=== PATIENT | female | born 1950 | race Caucasian/White ===

== ENCOUNTER 2017-10-14 05:53 | Observation (INO) | payer OTHER ==
[2017-10-14] MEDS ORDERED: SODIUM CHLORIDE 1,000 ML IV STA (06:05)
[2017-10-14] MEDS ORDERED: dilTIAZem HCL 50 MG/10 ML - 10 ML VIAL IVPUSH ONE (06:05)
[2017-10-14] MEDS ORDERED: dilTIAZem HCL 125 MG/25 ML - 25 ML VIAL ONE (06:13)
[2017-10-14 06:33] LABS: BASO % 0.6 % (0-2.0); EOS % 0.6 % (0-4.5); HEMATOCRIT 39.3 % (32.4-45.2); HEMOGLOBIN 13.1 GM/dL (10.7-15.3); LYMPH % 19.2 % (8-40); MCH 28.2 pg (25.7-33.7); MCHC 33.2 g/dl (32.0-36.0); MEAN CELL VOLUME 84.9 fl (80-96); MEAN PLT VOLUME 9.6 fl (7.5-11.1); NEUT % 72.6 % (42.8-82.8); PLATELET COUNT 170 K/MM3 (134-434); RBC 4.63 M/mm3 (3.60-5.2); RDW 14.5 % (11.6-15.6); WHITE BLOOD COUNT 5.3 K/mm3 (4.0-10.0)
[2017-10-14] MEDS ORDERED: dilTIAZem HCL 60 MG TABLET (FP) PO ONE (06:39)
--- NOTE | 2017-10-14 06:39 | PDOC ---
History of Present Illness - History of Present Illness Initial Comments: 10/14/17 06:39 The patient is a 67 year old female with a significant PMH of HTN and CVA (X2, last in 2012) who presents to the emergency department via EMS with chest pain that began at approximately 11:30 PM last night. The patient describes the chest pain as 8/10 with associated palpitations and diffuse abdominal pain. The patient recorded her blood pressure at home to be approx. 150/88 and took her lisinopril. The patient's blood pressure remained elevated on EMS and received 324 mg aspirin and normal saline en route to the ED. The patient notes the chest pain is now a 7/10. The patient denies sick contact or recent travel The patient denies diaphoresis, blurry vision, shortness of breath, headache lightheadedness, and dizziness. Denies fever, chills, nausea, vomit, diarrhea and constipation. Denies dysuria, frequency, urgency and hematuria. Allergies: NKA Past surgical history: Ovarian cyst removal Social history: No reported alcohol, drug, or cigarette use. PCP: Dr. Anderson Housing Assistant: Dr. Hull <Harleen Lucero - Last Filed: 10/14/17 06:39> - General History Source: Patient, Family Exam Limitations: No Limitations <Ana Glover - Last Filed: 10/17/17 10:48> - General Chief Complaint: Chest Pain Stated Complaint: BP PROBLEM,PAIN Time Seen by Provider: 10/14/17 06:07 Past History <Harleen Lucero - Last Filed: 10/14/17 06:39> - Past Medical History CVA: Yes (X2 2012) HTN: Yes - Suicide/Smoking/Psychosocial Hx Smoking History: Never smoked Have you smoked in the past 12 months: No Information on smoking cessation initiated: No Hx Alcohol Use: No Drug/Substance Use Hx: No Substance Use Type: None <Ana Glover - Last Filed: 10/17/17 10:48> - Past Medical History Allergies/Adverse Reactions: Allergies Allergy/AdvReac Type Severity Reaction Status Date / Time No Known Allergies Allergy Verified 06/30/15 11:21 Home Medications: Ambulatory Orders Aspirin [ASA -] 81 mg PO DAILY 03/05/14 Apixaban [Eliquis -] 5 mg PO BID #60 tablet 10/15/17 Diltiazem Cd [Cardizem Cd -] 120 mg PO DAILY #30 cap.cd.24h 10/15/17 Review of Systems - Review of Systems Able to Perform ROS?: Yes Comments:: 10/14/17 06:41 ROS: A complete review of 10 out of 10 review of systems is taken and is negative apart from what is previously mentioned below and in the HPI. <Harleen Lucero - Last Filed: 10/14/17 06:39> *Physical Exam - Vital Signs Last Vital Signs Temp Pulse Resp BP Pulse Ox 97.9 F 99 H 14 115/56 100 10/14/17 06:03 10/14/17 06:29 10/14/17 06:29 10/14/17 06:29 10/14/17 06:29 - Physical Exam Comments: 10/14/17 06:41 GENERAL: The patient is in no acute distress. HEAD: Normal with no signs of trauma. EYES: PERRLA, EOMI, sclera anicteric, conjunctiva clear. ENT: Ears normal, nares patent, oropharynx clear without exudates. Moist mucous membranes. NECK: Normal range of motion, supple without lymphadenopathy, JVD, or masses. LUNGS: Breath sounds equal, clear to auscultation bilaterally. No wheezes, and no crackles. HEART: (+) Irregular rate and rhythm. Normal S1 and S2 without murmur, rub or gallop. ABDOMEN: Soft, nontender, normoactive bowel sounds. No guarding, no rebound. No masses palpable. EXTREMITIES: Normal range of motion, no edema. No clubbing or cyanosis. No erythema, or tenderness. NEUROLOGICAL: Cranial nerves II through XII grossly intact. Normal speech. No focal neurological deficits. MUSCULOSKELETAL: Back non-tender to palpation, no CVA tenderness SKIN: Warm, Dry, normal turgor, no rashes or lesions noted. <Harleen Lucero - Last Filed: 10/14/17 06:39> - Vital Signs Last Vital Signs Temp Pulse Resp BP Pulse Ox 97.9 F 99 H 14 115/56 100 10/14/17 06:03 10/14/17 06:29 10/14/17 06:29 10/14/17 06:29 10/14/17 06:29 <Adalberto,Ana - Last Filed: 10/17/17 10:48> ED Treatment Course - LABORATORY CBC & Chemistry Diagram: 10/14/17 06:30 10/14/17 06:30 - Medications Given in the ED: ED Medications Discontinued Medications Generic Name Dose Route Start Last Admin Trade Name Freq PRN Reason Stop Dose Admin Diltiazem HCl 10 mg 10/14/17 06:05 10/14/17 06:28 Cardizem Injection - IVPUSH 10/14/17 06:06 10 mg ONCE ONE Administration <Harleen Lucero - Last Filed: 10/14/17 06:39> - LABORATORY CBC & Chemistry Diagram: 10/15/17 06:40 10/15/17 06:40 - RADIOLOGY Radiology Studies Ordered: Category Date Time Status CHEST X-RAY PORTABLE* [RAD] Stat Radiology 10/14/17 06:05 Taken - Medications Given in the ED: ED Medications Discontinued Medications Generic Name Dose Route Start Last Admin Trade Name Freq PRN Reason Stop Dose Admin Diltiazem HCl 10 mg 10/14/17 06:05 10/14/17 06:28 Cardizem Injection - IVPUSH 10/14/17 06:06 10 mg ONCE ONE Administration <Ana Glover - Last Filed: 10/17/17 10:48> Medical Decision Making - Critical Care Time Total Critical Care Time (minutes): 35 Critical Care Statement: The care of this patient involved high complexity decision making to prevent further life threatening deterioration of the patient 's condition and/or to evaluate & treat vital organ system(s) failure or risk of failure. - Medical Decision Making Ms Escobar is a 67 yo F who presents to the ER with new onset Afib and chest heaviness Some confusion initially, pt stated that she had multiple MIs (no stents) Pt then said she has had a CVA in the past Pt presents to the ER due to chest heaviness that began at 11pm last night (+) sob No prior episodes quite like this No recent travel No ill contacts On examination: Afib with RVR Will do: Labs EKG copyman Cardize 10/17/17 10:47 Guiaic sent in anticipation of anticoagulation HR improved with Cardizem Will defer to Cardiology for type of anticoagulation to initiate Pt signed out to Dr Casas pending labs and conversation with cardiology Anticipate admission Clinical Impression: chest heaviness, initial presentation Afib with rvr, initial presentation <Ana Glover - Last Filed: 10/17/17 10:48> *DC/Admit/Observation/Transfer - Attestations Scribe Attestion: 10/14/17 06:53 Documentation prepared by Harleen Lucero, acting as medical grade shoemaker for Ana Glover MD. <Harlene Lucero - Last Filed: 10/14/17 06:39> <Ana Glover - Last Filed: 10/17/17 10:48> Diagnosis at time of Disposition: Chest pain, Atrial fibrillation - Discharge Dispostion Disposition: HOME Condition at time of disposition: Stable
[2017-10-14] MEDS ORDERED: dilTIAZem HCL 60 MG TABLET (FP) ONE (06:44)
[2017-10-14 07:16] LABS: ALBUMIN 3.2 g/dl (3.4-5.0); ANION GAP 7 (8-16); BLOOD UREA NITROGEN 16 mg/dL (7-18); CALCIUM 8.6 mg/dL (8.5-10.1); CHLORIDE 107 mmol/L (98-107); CO2 25 mmol/L (21-32); CREATININE 0.6 mg/dL (0.55-1.02); GLUCOSE,RANDOM 113 mg/dL (74-106); SGOT/AST 23 U/L (15-37); SGPT/ALT 27 U/L (12-78); SODIUM 139 mmol/L (136-145); TOT PROT 6.8 g/dl (6.4-8.2)
[2017-10-14 07:25] LABS: ALK PHOS 69 U/L (45-117); N-TERMINAL BNP 251.04 pg/ml (5-125)
[2017-10-14 07:38] LABS: BILIRUBIN,TOTAL < 0.1 mg/dL (0.2-1.0)
[2017-10-14 10:02] LABS: URINE APPEARANCE CLEAR; URINE BILIRUBIN NEGATIVE (<2.0 mg/dL); URINE BLOOD 1+ (NEGATIVE); URINE COLOR COLORLESS; URINE GLUCOSE (UA) NEGATIVE (NEGATIVE); URINE KETONE NEGATIVE (NEGATIVE); URINE LEUK ESTERASE NEGATIVE (NEGATIVE); URINE NITRITE NEGATIVE (NEGATIVE); URINE PROTEIN NEGATIVE (NEGATIVE); URINE UROBILINOGEN NEGATIVE mg/dL (0.2-1.0)
--- NOTE | 2017-10-14 10:11 | PDOC ---
*Physical Exam - Vital Signs Last Vital Signs Temp Pulse Resp BP Pulse Ox 98.1 F 98 H 18 125/81 98 10/14/17 07:59 10/14/17 07:59 10/14/17 07:59 10/14/17 07:59 10/14/17 07:59 <Deyanira Sanchez - Last Filed: 10/14/17 10:37> - Vital Signs Last Vital Signs Temp Pulse Resp BP Pulse Ox 98.1 F 98 H 18 125/81 98 10/14/17 07:59 10/14/17 07:59 10/14/17 07:59 10/14/17 07:59 10/14/17 07:59 <Kiko Casas - Last Filed: 10/14/17 10:44> ED Treatment Course - LABORATORY CBC & Chemistry Diagram: 10/14/17 06:30 10/14/17 06:30 - ADDITIONAL ORDERS Additional order review: Laboratory Results 10/14/17 10/14/17 10/14/17 09:28 06:49 06:30 Sodium 139 Potassium 4.0 Chloride 107 Carbon Dioxide 25 Anion Gap 7 L BUN 16 Creatinine 0.6 Creat Clearance w eGFR > 60 Random Glucose 113 H Calcium 8.6 Total Bilirubin < 0.1 L D AST 23 ALT 27 Alkaline Phosphatase 69 Creatine Kinase 131 Troponin I < 0.02 B-Natriuretic Peptide 251.04 H Total Protein 6.8 Albumin 3.2 L TSH 3.24 Urine Color Colorless Urine Appearance Clear Urine pH 6.0 Ur Specific [place] 1.004 Urine Protein Negative Urine Glucose (UA) Negative Urine Ketones Negative Urine Blood 1+ H Urine Nitrite Negative Urine Bilirubin Negative Urine Urobilinogen Negative Ur Leukocyte Esterase Negative Stool Occult Blood Negative 10/14/17 06:30 RBC 4.63 MCV 84.9 MCHC 33.2 RDW 14.5 MPV 9.6 Neutrophils % 72.6 Lymphocytes % 19.2 Monocytes % 7.0 Eosinophils % 0.6 Basophils % 0.6 - Medications Given in the ED: ED Medications Discontinued Medications Generic Name Dose Route Start Last Admin Trade Name Freq PRN Reason Stop Dose Admin Diltiazem HCl 10 mg 10/14/17 06:05 10/14/17 06:28 Cardizem Injection - IVPUSH 10/14/17 06:06 10 mg ONCE ONE Administration Diltiazem HCl 60 mg 10/14/17 06:39 10/14/17 06:49 Cardizem - PO 10/14/17 06:40 60 mg ONCE ONE Administration <Deyanira Sanchez - Last Filed: 10/14/17 10:37> - LABORATORY CBC & Chemistry Diagram: 10/14/17 06:30 10/14/17 06:30 - ADDITIONAL ORDERS Additional order review: Laboratory Results 10/14/17 10/14/17 06:49 06:30 Sodium 139 Potassium 4.0 Chloride 107 Carbon Dioxide 25 Anion Gap 7 L BUN 16 Creatinine 0.6 Creat Clearance w eGFR > 60 Random Glucose 113 H Calcium 8.6 Total Bilirubin < 0.1 L D AST 23 ALT 27 Alkaline Phosphatase 69 Creatine Kinase 131 Troponin I < 0.02 B-Natriuretic Peptide 251.04 H Total Protein 6.8 Albumin 3.2 L TSH 3.24 Stool Occult Blood Negative 10/14/17 06:30 RBC 4.63 MCV 84.9 MCHC 33.2 RDW 14.5 MPV 9.6 Neutrophils % 72.6 Lymphocytes % 19.2 Monocytes % 7.0 Eosinophils % 0.6 Basophils % 0.6 - Medications Given in the ED: ED Medications Discontinued Medications Generic Name Dose Route Start Last Admin Trade Name Freq PRN Reason Stop Dose Admin Diltiazem HCl 10 mg 10/14/17 06:05 10/14/17 06:28 Cardizem Injection - IVPUSH 10/14/17 06:06 10 mg ONCE ONE Administration Diltiazem HCl 60 mg 10/14/17 06:39 10/14/17 06:49 Cardizem - PO 10/14/17 06:40 60 mg ONCE ONE Administration <Kiko Casas - Last Filed: 10/14/17 10:44> Medical Decision Making - Medical Decision Making 10/14/17 10:31 Documentation prepared by Deyanira Sanchez, acting as regional medical director for Kiko Casas MD. Phone call placed to Dr. Hull at 09:35. Call returned back by Dr. Plata 09: 39 and case was discussed. 10/14/17 10:37 Microblog sent to [facility] and call was returned promptly. Case was discussed. <Deyanira Sanchez - Last Filed: 10/14/17 10:37> - Medical Decision Making 10/14/17 10:09 Care received at 0700 Patient presents to the emergency Department with chest pain/palps, found to be in new onset atrial fibrillation. Labs within normal limits, with negative troponin. Patient remains rate controlled. Case discussed with Dr. Carlton who will evaluate the patient. Patient accepted for admission to the hospitalist, case discussed with Dr. Bose. Case discussed in detail with admitting physician including history, physical exam and ancillary studies. Admitting physician has assumed care for the patient, will follow all pending diagnostics and will complete the evaluation and treatment. <Kiko Casas - Last Filed: 10/14/17 10:44> *DC/Admit/Observation/Transfer <Deyanira Sanchez - Last Filed: 10/14/17 10:37> - Discharge Dispostion Admit: Yes - Attestations Physician Attestion: 10/14/17 10:44 I, Dr. Kiko Casas MD, attest that this document has been prepared under my direction and personally reviewed by me in its entirety. I further attest, that it accurately reflects all work, treatment, procedures and medical decision -making performed by me. <Kiko Casas - Last Filed: 10/14/17 10:44> Diagnosis at time of Disposition: Chest pain, Atrial fibrillation - Discharge Dispostion Condition at time of disposition: Stable - Referrals Referrals: Chelsie Tenorio MD [Primary Care Provider] - - Patient Instructions - Post Discharge Activity
[2017-10-14] MEDS ORDERED: ENOXAPARIN NA (PORCINE) 80 MG/0.8 ML DISP.SYRIN SQ SCH (11:15)
[2017-10-14] MEDS ORDERED: ENOXAPARIN NA (PORCINE) 80 MG/0.8 ML DISP.SYRIN SQ ONE (11:24)
--- NOTE | 2017-10-14 11:26 | PN ---
Teaching Attending Note Name of Resident: Jerardo Bose ATTENDING PHYSICIAN STATEMENT I saw and evaluated the patient. I reviewed the resident's note and discussed the case with the resident. I agree with the resident's findings and plan as documented. SUBJECTIVE: This is a 67 year old woman with a history of HTN, CVA who comes to the ED complaining of chest pain since 11:30 pm yesterday. Pain was in the left chest and did not radiate. She denies SOB, nausea, dizziness. She had palpitations and her symptoms worsened with exertion. She also noted her BP was high. She took aspirin but her symptoms persisted. OBJECTIVE: Vital Signs Period Temp Pulse Resp BP Sys/Valdes Pulse Ox Last 24 Hr 97.9 F-98.1 F 98-133 14-18 115-149/56-88 98-100 HEART: Irregularly irregular LUNGS: Clear ABDOMEN: Soft, non-tender, non-distended, normal BS EXTREMITIES: No edema Laboratory Tests 10/14/17 10/14/17 10/14/17 06:30 06:30 06:49 WBC 5.3 RBC 4.63 Hgb 13.1 Hct 39.3 MCV 84.9 MCH 28.2 MCHC 33.2 RDW 14.5 Plt Count 170 MPV 9.6 Neutrophils % 72.6 Lymphocytes % 19.2 Monocytes % 7.0 Eosinophils % 0.6 Basophils % 0.6 Sodium 139 Potassium 4.0 Chloride 107 Carbon Dioxide 25 Anion Gap 7 L BUN 16 Creatinine 0.6 Creat Clearance w eGFR > 60 Random Glucose 113 H Calcium 8.6 Total Bilirubin < 0.1 L D AST 23 ALT 27 Alkaline Phosphatase 69 Creatine Kinase 131 Troponin I < 0.02 B-Natriuretic Peptide 251.04 H Total Protein 6.8 Albumin 3.2 L TSH 3.24 Urine Color Urine Appearance Urine pH Ur Specific [place] Urine Protein Urine Glucose (UA) Urine Ketones Urine Blood Urine Nitrite Urine Bilirubin Urine Urobilinogen Ur Leukocyte Esterase Stool Occult Blood Negative 10/14/17 09:28 WBC RBC Hgb Hct MCV MCH MCHC RDW Plt Count MPV Neutrophils % Lymphocytes % Monocytes % Eosinophils % Basophils % Sodium Potassium Chloride Carbon Dioxide Anion Gap BUN Creatinine Creat Clearance w eGFR Random Glucose Calcium Total Bilirubin AST ALT Alkaline Phosphatase Creatine Kinase Troponin I B-Natriuretic Peptide Total Protein Albumin TSH Urine Color Colorless Urine Appearance Clear Urine pH 6.0 Ur Specific [place] 1.004 Urine Protein Negative Urine Glucose (UA) Negative Urine Ketones Negative Urine Blood 1+ H Urine Nitrite Negative Urine Bilirubin Negative Urine Urobilinogen Negative Ur Leukocyte Esterase Negative Stool Occult Blood Home Medications Medication Instructions Recorded Aspirin [ASA -] 81 mg PO DAILY 03/05/14 Lisinopril/Hydrochlorothiazide 1 each PO DAILY 06/30/15 [Lisinopril-Hctz 20-25 mg Tab] Nifedipine ER [Procardia Xl -] 30 mg PO DAILY 06/30/15 ASSESSMENT AND PLAN: This is a 67 year old woman with a history of HTN, CVA who presented to the ED with of chest pain and palpitations since last night. 1. Atrial fibrillation, new-onset, with RVR - Rate improved with Cardizem 10 mg IV and Cardizem 60 mg PO in ED - Continue PO Cardizem - Discontinue Nifedipine - Start Lovenox - Observe on telemetry - Serial troponins - Echocardiogram - Cardiology consult 2. Chest pain and palpitations likely secondary to rapid a fib 3. HTN - Continue Lisinopril, HCTZ - Nifedipine being changed to Cardizem for rate control 4. History of CVA - Continue aspirin
--- NOTE | 2017-10-14 11:30 | HP ---
CHIEF COMPLAINT: chest pain and palpitations PCP: Dr. Anderson; Cardio - Dr. Hull HISTORY OF PRESENT ILLNESS: 67 y/o Nepali speaking F w/PMH of HTN and CVA (x2) presents to the ER with chest pain that started suddenly last night at approximately 11:30 PM. Pain began in abdomen and then moved to chest at that time. She took an aspirin and drank lots of water but only gave her mild relief. Chest pain was located in L sternal border and did not radiate to arms or jaw and was not associated with nausea, light-headedness, SOB. Pain was worse with exertion. Pain and palpitations remained throughout the night and pt decided to come to the ER when she noted that her BP which is normally controlled was elevated at home along with these symptoms. At this time pt reports improvement in chest pain and is there "only a little" and also reports improvement in abd pain. No longer feeling palpitations. She had these symptoms once in the past approximately 1.5 months ago and saw line crewman and no abnormalities found (pt also reports having echo done at that time). Denies cough, SOB, sick contacts, recent travel, lower extremity swelling, light -headedness, dizziness, dysuria, hematuria, nausea, vomiting, fever, chills. ER course was notable for: (1) NS, diltiazem IV 10 mg, diltiazem PO 60 mg (2) (3) Recent Travel: denies PAST MEDICAL HISTORY: HTN, CVA x2 PAST SURGICAL HISTORY: ovarian cyst removal, orthopedic surgeries in arms and legs as per pt Social History: Smoking: denies Alcohol: denies Drugs: denies Family History: Mother: HTN Allergies No Known Allergies Allergy (Verified 06/30/15 11:21) HOME MEDICATIONS: Home Medications Medication Instructions Recorded Aspirin [ASA -] 81 mg PO DAILY 03/05/14 Lisinopril/Hydrochlorothiazide 1 each PO DAILY 06/30/15 [Lisinopril-Hctz 20-25 mg Tab] Nifedipine ER [Procardia Xl -] 30 mg PO DAILY 06/30/15 REVIEW OF SYSTEMS CONSTITUTIONAL: Absent: fever, chills HEENT: Absent: visual changes CARDIOVASCULAR: +chest pain, palpitations Absent: lightheadedness, peripheral edema RESPIRATORY: Absent: cough, shortness of breath GASTROINTESTINAL:+abd pain Absent: abdominal distension, nausea, vomiting, diarrhea, constipation, melena, hematochezia GENITOURINARY: Absent: dysuria, frequency, hematuria NEUROLOGIC: Absent: dizziness PHYSICAL EXAMINATION Vital Signs - 24 hr 10/14/17 10/14/17 10/14/17 06:03 06:29 06:36 Temperature 97.9 F Pulse Rate 133 H Pulse Rate [ 99 H Left Radial] Respiratory 17 14 Rate Blood Pressure 149/88 Blood Pressure 115/56 [Right Arm] O2 Sat by Pulse 98 100 100 Oximetry (%) 10/14/17 10/14/17 07:57 07:59 Temperature 98.1 F Pulse Rate Pulse Rate [ 98 H Left Radial] Respiratory 18 Rate Blood Pressure Blood Pressure 125/81 [Right Arm] O2 Sat by Pulse 99 98 Oximetry (%) GENERAL: Awake, alert, and fully oriented, in no acute distress. HEAD: Normal with no signs of trauma. EYES: extraocular movements intact, sclera anicteric, conjunctiva clear. EARS, NOSE, THROAT: Ears normal, nares patent. Moist mucous membranes. NECK: Normal range of motion, supple LUNGS: Breath sounds equal, clear to auscultation bilaterally. No wheezes, and no crackles. No accessory muscle use. HEART: Irregularly irregular. No murmurs noted. S1, S2 + ABDOMEN: Soft, nontender, not distended, normoactive bowel sounds UPPER EXTREMITIES: No peripheral edema. LOWER EXTREMITIES: 2+ pulses, warm, well-perfused. No peripheral edema. NEUROLOGICAL: Normal speech. PSYCHIATRIC: Cooperative. Good eye contact. Appropriate mood and affect. SKIN: Warm, dry CBCD WBC 5.3 K/mm3 (4.0-10.0) 10/14/17 06:30 RBC 4.63 M/mm3 (3.60-5.2) 10/14/17 06:30 Hgb 13.1 GM/dL (10.7-15.3) 10/14/17 06:30 Hct 39.3 % (32.4-45.2) 10/14/17 06:30 MCV 84.9 fl (80-96) 10/14/17 06:30 MCHC 33.2 g/dl (32.0-36.0) 10/14/17 06:30 RDW 14.5 % (11.6-15.6) 10/14/17 06:30 Plt Count 170 K/MM3 (134-434) 10/14/17 06:30 MPV 9.6 fl (7.5-11.1) 10/14/17 06:30 CMP Sodium 139 mmol/L (136-145) 10/14/17 06:30 Potassium 4.0 mmol/L (3.5-5.1) 10/14/17 06:30 Chloride 107 mmol/L (98-107) 10/14/17 06:30 Carbon Dioxide 25 mmol/L (21-32) 10/14/17 06:30 Anion Gap 7 (8-16) L 10/14/17 06:30 BUN 16 mg/dL (7-18) 10/14/17 06:30 Creatinine 0.6 mg/dL (0.55-1.02) 10/14/17 06:30 Creat Clearance w eGFR > 60 (>60) 10/14/17 06:30 Random Glucose 113 mg/dL (74-106) H 10/14/17 06:30 Calcium 8.6 mg/dL (8.5-10.1) 10/14/17 06:30 Total Bilirubin < 0.1 mg/dL (0.2-1.0) L D 10/14/17 06:30 AST 23 U/L (15-37) 10/14/17 06:30 ALT 27 U/L (12-78) 10/14/17 06:30 Alkaline Phosphatase 69 U/L (45-117) 10/14/17 06:30 Total Protein 6.8 g/dl (6.4-8.2) 10/14/17 06:30 Albumin 3.2 g/dl (3.4-5.0) L 10/14/17 06:30 CARDIAC ENZYMES Creatine Kinase 131 IU/L (26-192) 10/14/17 06:30 Troponin I < 0.02 ng/ml (0.00-0.05) 10/14/17 06:30 Urine Test Results Urine Color Colorless 10/14/17 09:28 Urine Appearance Clear 10/14/17 09:28 Urine pH 6.0 (5.0-8.0) 10/14/17 09:28 Ur Specific [place] 1.004 (1.001-1.035) 10/14/17 09:28 Urine Protein Negative (NEGATIVE) 10/14/17 09:28 Urine Glucose (UA) Negative (NEGATIVE) 10/14/17 09:28 Urine Ketones Negative (NEGATIVE) 10/14/17 09:28 Urine Blood 1+ (NEGATIVE) H 10/14/17 09:28 Urine Nitrite Negative (NEGATIVE) 10/14/17 09:28 Urine Bilirubin Negative (<2.0 mg/dL) 10/14/17 09:28 Ur Leukocyte Esterase Negative (NEGATIVE) 10/14/17 09:28 Laboratory Tests 10/14/17 06:49 Stool Occult Blood Negative Imaging: CXR: 10/14/17 - Impression: Cardiomegaly. No acute pathology. EK10/14/17 - A-fib @ 84 bpm. QTc [address] segment depressions or elevations. Active Medications Aspirin (Ecotrin -) 81 mg PO DAILY RANDALL Diltiazem HCl (Cardizem -) 30 mg PO Q6HPO RANDALL Enoxaparin Sodium (Lovenox -) 70 mg SQ Q12H RANDALL Sodium Chloride (Normal Saline -) 1,000 mls @ 100 mls/hr IV ASDIR STA Stop: 10/14/17 16:04 Last Admin: 10/14/17 06:28 Dose: 100 mls/hr ASSESSMENT/PLAN: 67 y/o Nepali speaking F w/PMH of HTN and CVA (x2) presents to the ER with chest pain that started suddenly last night. Found to have new onset A-fib w/ RVR and now being observed for new onset a-fib. -Chest pain and palpitations most likely secondary to new onset A-fib; r/o ACS -New onset a-fib -Echo, check Mg. No electrolyte abnormalities or hypo/hyperthyroidism noted on labs. -CHADSVASC: 5 -AC w/lovenox 70 mg sq q12h (weight based). Will need to be transitioned to oral agent. -Currently rate controlled after receiving diltiazem 10 mg IV + 60 mg PO in ER -Will continue with diltiazem 30 mg po q6h -Cardio consult -r/o ACS -trend trops, initial trop negative -HTN -home meds include Lisinopril 20 mg, HCTZ 25 mg, nifedipine 30 mg -will hold off now with pt on diltiazem and well controlled BP at this time. Monitor BP and restart home meds according to BP readings if necessary ( lisinopril or hctz). -DVT ppx -Lovenox 70 mg sq q12h for AC -FEN -no fluids -monitor electrolytes -regular diet -Dispo: obs/tele Visit type - Emergency Visit Emergency Visit: Yes Care time: The patient presented to the Emergency Department on the above date and was hospitalized for further evaluation of their emergent condition. - New Patient This patient is new to me today: Yes Date on this admission: 10/14/17 - Critical Care Critical Care patient: No Hospitalist Screening - Colonoscopy Questionnaire Colonoscopy Questionnaire: Colonoscopy Questionnaire - Patient: 50 - 75 years old and never had a screening colonoscopy: Unknown History of colon or rectal polyps, or CA: Unknown History of IBD, Crohn's disease or UC: Unknown History of abdominal radiation therapy as a child: Unknown - Relative: 1 with colon or rectal CA, or polyps at age 60 or younger: Unknown Colon or rectal CA diagnosed at age 45 or younger: Unknown Multiple relatives with colon or rectal CA: Unknown - Outcome: Screening Result: Negative Screen
[2017-10-14] MEDS ORDERED: dilTIAZem HCL 30 MG TABLET (FP) ONE ×2 (11:32→18:54)
--- NOTE | 2017-10-14 12:39 | CON.CARD ---
Cardiology Consult (text) - Consultation Consultation Note: CC: new onset afib. 67 year old female with a significant PMH of HTN and CVA (X2, last in 2012) who p/w chest heaviness and found to have afib with rvr. CP began at approximately 11:30 PM last night. The patient describes the chest pain as 8/10 with associated palpitations and diffuse abdominal pain. Given Cardizem 10 mg IV x 1, diltiazem 60 mg po x 1 and IVF in the ER with brief improvement in heart rate. Denies recent infectious sx's. Denies fever, chills, sweats, nausea, vomit, diarrhea, blurry vision, h/a, rash , cough, congestion. No sob, dizzy, loc, pnd, orthopnea, le edema, bleeding, transient neurologic sx' s. pmhx: per hpi Past surgical history: Ovarian cyst removal Social history: nerver smoker, No reported alcohol, drug, or cigarette use. fam hx: no premature cad ros: per hpi PCP: Dr. Anderson Junior Designer: Dr. Hull Ambulatory Orders Aspirin [ASA -] 81 mg PO DAILY 03/05/14 Lisinopril/Hydrochlorothiazide [Lisinopril-Hctz 20-25 mg Tab] 1 each PO DAILY Nifedipine ER [Procardia Xl -] 30 mg PO DAILY 06/30/15 Current Medications Aspirin (Ecotrin -) 81 mg PO DAILY [facility] Diltiazem HCl (Cardizem -) 30 mg PO Q6HPO [facility] Enoxaparin Sodium (Lovenox -) 70 mg SQ Q12H [facility] Last Admin: 10/14/17 11:31 Dose: 70 mg Sodium Chloride (Normal Saline -) 1,000 mls @ 100 mls/hr IV ASDIR STA Stop: 10/14/17 16:04 Last Admin: 10/14/17 06:28 Dose: 100 mls/hr Vital Signs - 24 hr 10/14/17 10/14/17 10/14/17 06:03 06:29 06:36 Temperature 97.9 F Pulse Rate 133 H Pulse Rate [ 99 H Left Radial] Respiratory 17 14 Rate Blood Pressure 149/88 Blood Pressure 115/56 [Right Arm] O2 Sat by Pulse 98 100 100 Oximetry (%) 10/14/17 10/14/17 07:57 07:59 Temperature 98.1 F Pulse Rate Pulse Rate [ 98 H Left Radial] Respiratory 18 Rate Blood Pressure Blood Pressure 125/81 [Right Arm] O2 Sat by Pulse 99 98 Oximetry (%) Intake & Output 10/12/17 10/13/17 10/14/17 10/15/17 07:59 07:59 07:59 07:59 Weight 160 lb nad, calm jvd flat, neck supple ctab, nl effort irreglarly, irregular. tachycardic nl s1, s2 no mrg. nd pmi + bs soft nt nd, no hsm ext without e/c/c + dp/pt no carotid bruit aaox3 no jaundice, diaphoresis CBC, BMP 10/14/17 06:30 10/14/17 06:30 Laboratory Tests 10/14/17 06:30 Total Bilirubin < 0.1 L D AST 23 ALT 27 Alkaline Phosphatase 69 Creatine Kinase 131 Troponin I < 0.02 B-Natriuretic Peptide 251.04 H Albumin 3.2 L TSH 3.24 ekg: afib 84 bpm. non-specific t wave abnormalities. tele: afib. initially rvr --> subsequent improvement in hr to 80's-90's. now rising back into the 110's-120's. cxr: cardiomegaly, no acute pathology. echo 09/2017: nl lv/rv size/fn. 1+ mac, 1+ tr. echo 12/2015: nl lv/rv, no sig valve path ASSESSMENT/PLAN 67 year old female with a significant PMH of HTN and CVA (X2, last in 2012) who p/w chest heaviness and found to have afib with rvr. new onset afib - started on lovenox in ER. does not appear to have contraindications to ac. Will transition to eliquis 5 mg bid tonight. - no clear trigger. appears euvolemic. echo wnl. ce's neg x 1. EKG without acute ischemic changes. Con't justina. tsh wnl. no overt infectious sx's. - hr responded well to diltiazem. Agree with starting diltiazem 30 mg po q 6h. - con't tele monitoring - lyte repletion prn. htn - stopping prior regimen of lisinopril/hctz, nifedipine to make room for uptitration of rate control meds. prior hx of cva - now that she is on AC. may be able to stop ASA. not on statin. defer meds to outpatient neurology.
[2017-10-14] MEDS: dilTIAZem HCL 30 MG TABLET (FP) PO SCH ×2 (12:40→18:54)
--- NOTE | 2017-10-14 16:58 | EKG ---
Test Reason : Blood Pressure : / mmHG Vent. Rate : 084 BPM Atrial Rate : 117 BPM P-R Int : 000 ms QRS Dur : 104 ms QT Int : 362 ms P-R-T Axes : 000 005 -30 degrees QTc Int : 427 ms ATRIAL FIBRILLATION NONSPECIFIC T WAVE ABNORMALITY ABNORMAL ECG WHEN COMPARED WITH ECG OF 05-MAR-2014 12:18, ATRIAL FIBRILLATION HAS REPLACED SINUS RHYTHM Confirmed by MD Adry, Dakota ([id number]) on 10/14/2017 4:57:47 PM Referred By: Confirmed By:Dakota Rider MD
[2017-10-14 21:03] VITALS: BMI 29.7
[2017-10-14] MEDS: APIXABAN 5 MG TABLET PO SCH (21:47)
[2017-10-15] MEDS: dilTIAZem HCL 30 MG TABLET (FP) PO SCH ×4 (00:22→13:09)
--- NOTE | 2017-10-15 06:54 | PN ---
Physical Exam: SUBJECTIVE: Patient seen and examined by me this AM - No major overnight events, afebrile, no complaints. Denies cp, sob, cough, ab pain, f/c/n/v/d, diarrhea, constipation; ambulating well without any pain OBJECTIVE: Vital Signs Intake & Output 10/12/17 10/13/17 10/14/17 10/15/17 23:59 23:59 23:59 23:59 Intake Total 120 210 Balance 120 210 Weight 75.568 kg Period Temp Pulse Resp BP Sys/Valdes Pulse Ox Last 24 Hr 97.3 F-98.6 F 56-100 -18 98-125/51-81 97-99 GENERAL: Elderly woman, sitting in bed in NAD HEAD: Normal with no signs of trauma. EYES: PERRL, extraocular movements intact, sclera anicteric, conjunctiva clear. No ptosis. ENT: Ears normal, nares patent, oropharynx clear without exudates, moist mucous membranes. NECK: Trachea midline, full range of motion, supple. LUNGS: Breath sounds equal, clear to auscultation bilaterally, no wheezes, no crackles, no accessory muscle use. HEART: Regular rate and rhythm, S1, S2 without murmur, rub or gallop. ABDOMEN: Soft, nontender, nondistended, normoactive bowel sounds, no guarding, no rebound, no hepatosplenomegaly, no masses. EXTREMITIES: 2+ pulses, warm, well-perfused, no edema. NEUROLOGICAL: Cranial nerves II through XII grossly intact. Normal speech, gait not observed. PSYCH: Normal mood, normal affect. SKIN: Warm, dry, normal turgor, no rashes or lesions noted Laboratory Results - last 24 hr CBC, BMP 10/15/17 06:40 10/15/17 06:40 10/14/17 10/14/17 10/14/17 06:30 06:30 06:49 WBC 5.3 RBC 4.63 Hgb 13.1 Hct 39.3 MCV 84.9 MCH 28.2 MCHC 33.2 RDW 14.5 Plt Count 170 MPV 9.6 Neutrophils % 72.6 Lymphocytes % 19.2 Monocytes % 7.0 Eosinophils % 0.6 Basophils % 0.6 Sodium 139 Potassium 4.0 Chloride 107 Carbon Dioxide 25 Anion Gap 7 L BUN 16 Creatinine 0.6 Creat Clearance w eGFR > 60 Random Glucose 113 H Calcium 8.6 Total Bilirubin < 0.1 L D AST 23 ALT 27 Alkaline Phosphatase 69 Creatine Kinase 131 Troponin I < 0.02 B-Natriuretic Peptide 251.04 H Total Protein 6.8 Albumin 3.2 L TSH 3.24 Urine Color Urine Appearance Urine pH Ur Specific [place] Urine Protein Urine Glucose (UA) Urine Ketones Urine Blood Urine Nitrite Urine Bilirubin Urine Urobilinogen Ur Leukocyte Esterase Urine WBC (Auto) Urine RBC (Auto) Stool Occult Blood Negative 10/14/17 10/14/17 10/14/17 09:28 12:48 18:34 WBC RBC Hgb Hct MCV MCH MCHC RDW Plt Count MPV Neutrophils % Lymphocytes % Monocytes % Eosinophils % Basophils % Sodium Potassium Chloride Carbon Dioxide Anion Gap BUN Creatinine Creat Clearance w eGFR Random Glucose Calcium Total Bilirubin AST ALT Alkaline Phosphatase Creatine Kinase 122 128 Troponin I 0.03 < 0.02 B-Natriuretic Peptide Total Protein Albumin TSH Urine Color Colorless Urine Appearance Clear Urine pH 6.0 Ur Specific [place] 1.004 Urine Protein Negative Urine Glucose (UA) Negative Urine Ketones Negative Urine Blood 1+ H Urine Nitrite Negative Urine Bilirubin Negative Urine Urobilinogen Negative Ur Leukocyte Esterase Negative Urine WBC (Auto) None Urine RBC (Auto) <1 Stool Occult Blood Active Medications Generic Name Dose Route Start Last Admin Trade Name Freq PRN Reason Stop Dose Admin Apixaban 5 mg 10/14/17 22:00 10/14/17 21:47 Eliquis - PO 5 mg BID [facility] Administration Aspirin 81 mg 10/15/17 10:00 Ecotrin - PO DAILY [facility] Diltiazem HCl 30 mg 10/14/17 12:30 10/15/17 05:29 Cardizem - PO 30 mg Q6HPO [facility] Administration No micro Imaging: CXR: 10/14/17 - Impression: Cardiomegaly. No acute pathology. EK10/14/17 - A-fib @ 84 bpm. QTc [address] segment depressions or elevations. ASSESSMENT/PLAN: 67 y/o Nepalese speaking F w/PMH of HTN and CVA (x2) presents to the ER with chest pain that started suddenly last night. Found to have new onset A-fib w/ RVR and now being observed for new onset a-fib. -Chest pain and palpitations most likely secondary to new onset A-fib; r/o ACS -New onset a-fib -Echo, check Mg. No electrolyte abnormalities or hypo/hyperthyroidism noted on labs. -CHADSVASC: 5 -AC w/lovenox 70 mg sq q12h (weight based). Will need to be transitioned to oral agent. -Currently rate controlled after receiving diltiazem 10 mg IV + 60 mg PO in ER -Will continue with diltiazem 30 mg po q6h -Cardio consult -r/o ACS -trend trops, initial trop negative -HTN -home meds include Lisinopril 20 mg, HCTZ 25 mg, nifedipine 30 mg -will hold off now with pt on diltiazem and well controlled BP at this time. Monitor BP and restart home meds according to BP readings if necessary ( lisinopril or hctz). -DVT ppx -Lovenox 70 mg sq q12h for AC -FEN -no fluids -monitor electrolytes -regular diet -Dispo: obs/tele
[2017-10-15 06:58] LABS: HEMATOCRIT 37.4 % (32.4-45.2); HEMOGLOBIN 12.1 GM/dL (10.7-15.3); MCH 27.8 pg (25.7-33.7); MCHC 32.4 g/dl (32.0-36.0); MEAN CELL VOLUME 85.7 fl (80-96); MEAN PLT VOLUME 9.6 fl (7.5-11.1); PLATELET COUNT 176 K/MM3 (134-434); RBC 4.36 M/mm3 (3.60-5.2); RDW 14.8 % (11.6-15.6); WHITE BLOOD COUNT 4.8 K/mm3 (4.0-10.0)
[2017-10-15 07:26] LABS: ANION GAP 5 (8-16); BLOOD UREA NITROGEN 17 mg/dL (7-18); CALCIUM 8.3 mg/dL (8.5-10.1); CHLORIDE 107 mmol/L (98-107); CHOLESTEROL 161 mg/dL (50-200); CO2 29 mmol/L (21-32); CREATININE 0.6 mg/dL (0.55-1.02); GLUCOSE,RANDOM 92 mg/dL (74-106); HDL CHOLESTEROL 62 mg/dL (40-60); LDL CHOLESTEROL (ONLY SJRH) 91 mg/dL (5-100); MAGNESIUM 1.9 mg/dL (1.8-2.4); POTASSIUM 3.9 mmol/L (3.5-5.1); SODIUM 141 mmol/L (136-145); TRIGLYCERIDES 63 mg/dL (35-160)
[2017-10-15] MEDS: APIXABAN 5 MG TABLET PO SCH (09:26)
[2017-10-15] MEDS ORDERED: ASPIRIN COATED 81 MG TABLET.EC PO SCH (10:00)
--- NOTE | 2017-10-15 10:57 | PN ---
Progress Note (short form) - Note Progress Note: s: no cp sob palps dizzy o: Vital Signs Period Temp Pulse Resp BP Sys/Valdes Pulse Ox Last 24 Hr 97.3 F-98.6 F 56-100 17-18 98-125/51-86 97-99 nad, calm jvd flat, neck supple ctab, nl effort rrr s1s2 no mrg + bs soft nt nd, no hsm ext without e/c/c aaox3 no jaundice, diaphoresis Current Medications Apixaban (Eliquis -) 5 mg PO BID [facility] Last Admin: 10/15/17 09:26 Dose: 5 mg Aspirin (Ecotrin -) 81 mg PO DAILY [facility] Last Admin: 10/15/17 09:26 Dose: 81 mg Diltiazem HCl (Cardizem -) 30 mg PO Q6HPO [facility] Last Admin: 10/15/17 05:29 Dose: 30 mg Laboratory Last Values WBC 4.8 K/mm3 (4.0-10.0) 10/15/17 06:40 RBC 4.36 M/mm3 (3.60-5.2) 10/15/17 06:40 Hgb 12.1 GM/dL (10.7-15.3) 10/15/17 06:40 Hct 37.4 % (32.4-45.2) 10/15/17 06:40 MCV 85.7 fl (80-96) 10/15/17 06:40 MCH 27.8 pg (25.7-33.7) 10/15/17 06:40 MCHC 32.4 g/dl (32.0-36.0) 10/15/17 06:40 RDW 14.8 % (11.6-15.6) 10/15/17 06:40 Plt Count 176 K/MM3 (134-434) 10/15/17 06:40 MPV 9.6 fl (7.5-11.1) 10/15/17 06:40 Neutrophils % 72.6 % (42.8-82.8) 10/14/17 06:30 Lymphocytes % 19.2 % (8-40) 10/14/17 06:30 Monocytes % 7.0 % (3.8-10.2) 10/14/17 06:30 Eosinophils % 0.6 % (0-4.5) 10/14/17 06:30 Basophils % 0.6 % (0-2.0) 10/14/17 06:30 Sodium 141 mmol/L (136-145) 10/15/17 06:40 Potassium 3.9 mmol/L (3.5-5.1) 10/15/17 06:40 Chloride 107 mmol/L (98-107) 10/15/17 06:40 Carbon Dioxide 29 mmol/L (21-32) 10/15/17 06:40 Anion Gap 5 (8-16) L 10/15/17 06:40 BUN 17 mg/dL (7-18) 10/15/17 06:40 Creatinine 0.6 mg/dL (0.55-1.02) 10/15/17 06:40 Creat Clearance w eGFR > 60 (>60) 10/14/17 06:30 Random Glucose 92 mg/dL (74-106) 10/15/17 06:40 Hemoglobin A1c % 5.9 % (4.8-6.0) 10/15/17 06:40 Calcium 8.3 mg/dL (8.5-10.1) L 10/15/17 06:40 Magnesium 1.9 mg/dL (1.8-2.4) 10/15/17 06:40 Total Bilirubin < 0.1 mg/dL (0.2-1.0) L D 10/14/17 06:30 AST 23 U/L (15-37) 10/14/17 06:30 ALT 27 U/L (12-78) 10/14/17 06:30 Alkaline Phosphatase 69 U/L (45-117) 10/14/17 06:30 Creatine Kinase 128 IU/L (26-192) 10/14/17 18:34 Troponin I < 0.02 ng/ml (0.00-0.05) 10/14/17 18:34 B-Natriuretic Peptide 251.04 pg/ml (5-125) H 10/14/17 06:30 Total Protein 6.8 g/dl (6.4-8.2) 10/14/17 06:30 Albumin 3.2 g/dl (3.4-5.0) L 10/14/17 06:30 Triglycerides 63 mg/dL (35-160) 10/15/17 06:40 Cholesterol 161 mg/dL (50-200) 10/15/17 06:40 Total LDL Cholesterol 91 mg/dL (5-100) 10/15/17 06:40 HDL Cholesterol 62 mg/dL (40-60) H 10/15/17 06:40 TSH 3.24 uIU/ml (0.358-3.74) 10/14/17 06:30 Urine Color Colorless 10/14/17 09:28 Urine Appearance Clear 10/14/17 09:28 Urine pH 6.0 (5.0-8.0) 10/14/17 09:28 Ur Specific [place] 1.004 (1.001-1.035) 10/14/17 09:28 Urine Protein Negative (NEGATIVE) 10/14/17 09:28 Urine Glucose (UA) Negative (NEGATIVE) 10/14/17 09:28 Urine Ketones Negative (NEGATIVE) 10/14/17 09:28 Urine Blood 1+ (NEGATIVE) H 10/14/17 09:28 Urine Nitrite Negative (NEGATIVE) 10/14/17 09:28 Urine Bilirubin Negative (<2.0 mg/dL) 10/14/17 09:28 Urine Urobilinogen Negative mg/dL (0.2-1.0) 10/14/17 09:28 Ur Leukocyte Esterase Negative (NEGATIVE) 10/14/17 09:28 Urine WBC (Auto) None /hpf (3-5) 10/14/17 09:28 Urine RBC (Auto) <1 /hpf (0-3) 10/14/17 09:28 Stool Occult Blood Negative (NEGATIVE) 10/14/17 06:49 ekg: afib 84 bpm. non-specific t wave abnormalities. tele: sr cxr: cardiomegaly, no acute pathology. echo 09/2017: nl lv/rv size/fn. 1+ mac, 1+ tr. echo 12/2015: nl lv/rv, no sig valve path ASSESSMENT/PLAN 67 year old female with a significant PMH of HTN and CVA (X2, last in 2012) who p/w chest heaviness and found to have afib with rvr. new onset afib - cont eliquis - back in sr now. cont dilt in case has afib again. change to dilt long acting 120 qd upon dc. htn - stopping prior regimen of lisinopril/hctz, nifedipine to make room for uptitration of rate control meds. So far bp controlled on dilt. prior hx of cva - now that she is on AC. may be able to stop ASA. not on statin. defer meds to outpatient neurology. cardiac bains stable for dc
--- NOTE | 2017-10-15 13:32 | PN ---
Teaching Attending Note Name of Resident: Indra Sheets ATTENDING PHYSICIAN STATEMENT I saw and evaluated the patient. I reviewed the resident's note and discussed the case with the resident. I agree with the resident's findings and plan as documented with exceptions mentioned below. SUBJECTIVE: patient seen and examined. no complaints, feels well, no chest pain or new symptoms. OBJECTIVE: Vital Signs Period Temp Pulse Resp BP Sys/Valdes Pulse Ox Last 24 Hr 97.3 F-98.6 F 56-98 17-18 98-120/51-86 97-99 Intake & Output 10/12/17 10/13/17 10/14/17 10/15/17 23:59 23:59 23:59 23:59 Intake Total 120 210 Balance 120 210 Weight 166 lb 9.6 oz 166 lb 3.2 oz General: sitting in bed in no acute distress Chest: no rales or wheezing Home Medication List Medication Instructions Recorded Confirmed Type Aspirin [ASA -] 81 mg PO DAILY 03/05/14 10/14/17 History Lisinopril/Hydrochlorothiazide 1 each PO DAILY 06/30/15 10/14/17 History [Lisinopril-Hctz 20-25 mg Tab] Nifedipine ER [Procardia Xl -] 30 mg PO DAILY 06/30/15 10/14/17 History Active Medications Generic Name Dose Route Start Last Admin Trade Name Bryonq PRN Reason Stop Dose Admin Apixaban 5 mg 10/14/17 22:00 10/15/17 09:26 Eliquis - PO 5 mg BID [facility] Administration Aspirin 81 mg 10/15/17 10:00 10/15/17 09:26 Ecotrin - PO 81 mg DAILY [facility] Administration Diltiazem HCl 120 mg 10/15/17 13:15 Cardizem Cd - PO DAILY [facility] Laboratory Results - last 24 hr 10/14/17 10/15/17 10/15/17 18:34 06:40 06:40 WBC 4.8 RBC 4.36 Hgb 12.1 Hct 37.4 MCV 85.7 MCH 27.8 MCHC 32.4 RDW 14.8 Plt Count 176 MPV 9.6 Sodium 141 Potassium 3.9 Chloride 107 Carbon Dioxide 29 Anion Gap 5 L BUN 17 Creatinine 0.6 Random Glucose 92 Hemoglobin A1c % Calcium 8.3 L Magnesium 1.9 Creatine Kinase 128 Troponin I < 0.02 Triglycerides 63 Cholesterol 161 Total LDL Cholesterol 91 HDL Cholesterol 62 H 10/15/17 06:40 WBC RBC Hgb Hct MCV MCH MCHC RDW Plt Count MPV Sodium Potassium Chloride Carbon Dioxide Anion Gap BUN Creatinine Random Glucose Hemoglobin A1c % 5.9 Calcium Magnesium Creatine Kinase Troponin I Triglycerides Cholesterol Total LDL Cholesterol HDL Cholesterol Microbiology 10/14/17 09:28 Urine - Urine Clean Catch Urine Culture - Preliminary Staphylococcus Latex Coag Pos Beta Hemolytic Strep ASSESSMENT AND PLAN: 67 yof with pMHx of HTN, CVA x 2, admitted with chest pain, found in new onset Afib with RVR now in NSR. -New onset afib with RVR, now in NSR -HTN -CVA Plan 2D echo reviewed, cardiology input appreciated. Risks/benefits with anticoagulation, including bleeding, no spinal puncture while on the medication and need for monitoring. D/c home anti-hypertensives and continue cardizem, change to long acting. Plan discussed with patient d/c home today with outpatient PCP and cardiology follow up.
[2017-10-15 14:30] LABS: ALBUMIN 3.2 g/dl (3.4-5.0)
--- NOTE | 2017-10-15 16:57 | DS ---
Physical Exam: SUBJECTIVE: Patient seen and examined - No major overnight events, afebrile, no complaints. Denies cp, sob, cough, ab pain, f/c/n/v/d, diarrhea, constipation; ambulating well without any pain OBJECTIVE: Vital Signs Intake & Output 10/12/17 10/13/17 10/14/17 10/15/17 23:59 23:59 23:59 23:59 Intake Total 120 760 Balance 120 760 Weight 75.568 kg 75.387 kg Period Temp Pulse Resp BP Sys/Valdes Pulse Ox Last 24 Hr 97.3 F-98.6 F 56-98 16-18 98-125/51-86 97-99 PHYSICAL EXAM GENERAL: Elderly woman, sitting in bed in NAD HEAD: Normal with no signs of trauma. EYES: PERRL, extraocular movements intact, sclera anicteric, conjunctiva clear. No ptosis. ENT: Ears normal, nares patent, oropharynx clear without exudates, moist mucous membranes. NECK: Trachea midline, full range of motion, supple. LUNGS: Breath sounds equal, clear to auscultation bilaterally, no wheezes, no crackles, no accessory muscle use. HEART: Regular rate and rhythm, S1, S2 without murmur, rub or gallop. ABDOMEN: Soft, nontender, nondistended, normoactive bowel sounds, no guarding, no rebound, no hepatosplenomegaly, no masses. EXTREMITIES: 2+ pulses, warm, well-perfused, no edema. NEUROLOGICAL: Cranial nerves II through XII grossly intact. Normal speech, gait not observed. PSYCH: Normal mood, normal affect. SKIN: Warm, dry, normal turgor, no rashes or lesions noted LABS Laboratory Results - last 24 hr CBC, BMP 10/15/17 06:40 10/15/17 06:40 10/14/17 10/15/17 10/15/17 18:34 06:40 06:40 WBC 4.8 RBC 4.36 Hgb 12.1 Hct 37.4 MCV 85.7 MCH 27.8 MCHC 32.4 RDW 14.8 Plt Count 176 MPV 9.6 Sodium 141 Potassium 3.9 Chloride 107 Carbon Dioxide 29 Anion Gap 5 L BUN 17 Creatinine 0.6 Random Glucose 92 Hemoglobin A1c % Calcium 8.3 L Magnesium 1.9 Creatine Kinase 128 Troponin I < 0.02 Albumin 3.2 L Triglycerides 63 Cholesterol 161 Total LDL Cholesterol 91 HDL Cholesterol 62 H 10/15/17 06:40 WBC RBC Hgb Hct MCV MCH MCHC RDW Plt Count MPV Sodium Potassium Chloride Carbon Dioxide Anion Gap BUN Creatinine Random Glucose Hemoglobin A1c % 5.9 Calcium Magnesium Creatine Kinase Troponin I Albumin Triglycerides Cholesterol Total LDL Cholesterol HDL Cholesterol Microbiology 10/14/17 09:28 Urine - Urine Clean Catch Urine Culture - Preliminary Staphylococcus Latex Coag Pos Beta Hemolytic Strep CXR: 10/14/17 - Impression: Cardiomegaly. No acute pathology. EK10/14/17 - A-fib @ 84 bpm. QTc [address] segment depressions or elevations. ECHO 10/15 - Impaired LV relaxation, normal atria, mild MR, mild TR. Consults: Cardiology - Seen by Dr. Hull [facility]: prehospital course: 67 y/o Luxembourgish speaking F w/PMH of HTN and CVA (x2) presents to the ER with chest pain that started suddenly last night at approximately 11:30 PM. Pain began in abdomen and then moved to chest at that time. She took an aspirin and drank lots of water but only gave her mild relief. Chest pain was located in L sternal border and did not radiate to arms or jaw and was not associated with nausea, light-headedness, SOB. Pain was worse with exertion. Pain and palpitations remained throughout the night and pt decided to come to the ER when she noted that her BP which is normally controlled was elevated at home along with these symptoms. At this time pt reports improvement in chest pain and is there "only a little" and also reports improvement in abd pain. No longer feeling palpitations. She had these symptoms once in the past approximately 1.5 months ago and saw hematology oncology consultant and no abnormalities found (pt also reports having echo done at that time). Denies cough, SOB, sick contacts, recent travel, lower extremity swelling, light -headedness, dizziness, dysuria, hematuria, nausea, vomiting, fever, chills. Admission course: In ED, no lab abnormalities, BNP 250, trops neg x3. EKG only notable for Afib with no ischemic changes. CXR as noted above. UA, FOBT neg. Cardiology consulted. Pt placed on cardizem PO q6h, received 10mg IV. Echo ordered, results noted above. Pt NSR overnight with rate control. Seen by Dr Hull in AM, changed BP meds to cardizem CD 120mg daily. Started on Eliquis 5mg BID for afib. Advised to f/u with neurologist to further adjust AC, as pt also on ASA due to CVA X2 in past. Pt with resolution of symptoms and NSR. Discharged home with outpt f/u with cardiology in two weeks and PCP in one week. Date of Admission:10/14/17 Date of Discharge: 10/15/17 Pt is stable and medically cleared for discharge with outpt f/u with Dr. Hull in two weeks as outpt. Minutes to complete discharge: 35 Discharge Summary Reason For Visit: ATRIAL FIB,CHEST PAIN Current Active Problems Atrial fibrillation (Acute) Chest pain (Acute) Condition: Stable - Instructions Diet, Activity, Other Instructions: During your stay at [facility], you were treated for chest pain and a new arrhythmia known as atrial fibrillation. You were seen by our cardiology and treated for this condition, with resolution of your arrhythmia, however you will need to stay on a blood thinner to prevent any clots from forming in your heart due to the arrhythmia. You are being discharged home. Medications: The following medications were added to your home regimen. Please take them as directed below: Cardizem CD 120mg, one pill by mouth once a day Eliquis 5mg, one pill by mouth, twice a day *You are being placed on Eliquis, a blood thinner, due to risk of stroke from your arrhythmia. Please take this medication every day as directed above. This medication increases the risk of bleeding. If you notice any blood in your stool , cough or you have any other persistent bleeding, please contact your primary care doctor or come to the emergency department. Please inform the medical staff before any procedures that you are taking this medication. NO spinal tap or spinal puncture while on this medication. Please stop taking the following medications until you consult your primary care provider: Lisinopril/Hydrochlorothiazide [place] Please continue to take all other home medications as previously directed. Follow-ups: Please follow-up with your primary care physician, Dr. Anderson, in 1 week. Their contact information has been provided. Please call her office to schedule an appointment. You were seen by our cardiology team during your stay. Please follow-up with our hematology oncology consultant, Dr. Hull, in two weeks for further management of your cardiac medications and treatment. His contact number has been provided in this packet. Please call his office to make an appointment. Please discuss with your neurologist if you still need to be on Aspirin. Diet/exercise: Please abide by a low-fat, low salt diet, high in fruits and vegetables. You are approved for moderate exercise as tolerated. Please return to the hospital if you experience any of the following symptoms: - Worsening or persistent chest pain or tightness - Inability to catch your breath - Pain in your neck, arm or back that is persistent - Slurred speech, numbness/weakness in one part of your body or a facial droop - Persistent bleeding from any site - Dark or bloody stools - Any new or concerning symptoms Referrals: Jareth Hull MD [Staff Physician] - 2 Weeks Chelsie Tenorio MD [Primary Care Provider] - 1 Week Disposition: HOME - Home Medications Comprehensive Discharge Medication List: Ambulatory Orders Aspirin [ASA -] 81 mg PO DAILY 03/05/14 Apixaban [Eliquis -] 5 mg PO BID #60 tablet 10/15/17 Diltiazem Cd [Cardizem Cd -] 120 mg PO DAILY #30 cap.cd.24h 10/15/17 This patient is new to me today: Yes Date on this admission: 10/15/17 Emergency Visit: Yes ED Registration Date: 10/14/17 Care time: The patient presented to the Emergency Department on the above date and was hospitalized for further evaluation of their emergent condition. Critical Care patient: No - Discharge Referral Referred to [facility] Med [facility] No
[2017-10-15 19:39] VITALS: BP 128/66; PULSE 60; TEMP 98
== END 2017-10-15 18:46 | disposition home or self-care (01) ==
LOC: JER 05:53 → JERBED 10:44 → J4W 20:21
PROVIDERS: ADMIT Internal Medicine; ATTEND Hospitalist
PROC: 3E033GC Introduction of Other Therapeutic Substance into Peripheral Vein, Percutaneous Approach (ICD-10-PCS; principal; 2017-10-14)
PROC: 3E0337Z Introduction of Electrolytic and Water Balance Substance into Peripheral Vein, Percutaneous Approach (ICD-10-PCS; 2017-10-14)
PROC: 3E013GC Introduction of Other Therapeutic Substance into Subcutaneous Tissue, Percutaneous Approach (ICD-10-PCS; 2017-10-14)
DX: I48.91 Unspecified atrial fibrillation (principal); R07.9 Chest pain, unspecified; R00.2 Palpitations; I10 Essential (primary) hypertension; I51.7 Cardiomegaly; Z86.73 Personal history of transient ischemic attack (TIA), and cerebral infarction without residual deficits; Z79.82 Long term (current) use of aspirin
CPT/HCPCS: 36415; 71045-TC-FY; 80048; 80053; 80061; 81003; 81015; 82040; 82272; 82550; 83036; 83721; 83735; 83880; 84443; 84484; 85025; 85027; 87086; 87186; 93005; 93010; 93306-TC; 96361; 96372; 96374; 99285-25; G0378; J7030

== ENCOUNTER 2017-10-18 17:14 | Emergency (ER) | payer OTHER ==
[2017-10-18 17:53] VITALS: TEMP 97.9; BMI 29.4
--- NOTE | 2017-10-18 18:45 | PDOC ---
History of Present Illness - General History Source: Patient Exam Limitations: No Limitations - History of Present Illness Initial Comments: 10/18/17 18:58 CC: Elevated Blood Pressure HPI: The patient is a 67 year old female, with a significant past medical history of hypertension and CVA (X2, last in 2012), who presents to the emergency department s/p elevated blood pressure with, 6 hours of palpitation and chest pain. As per patient she was checking her blood pressure routinely when she obtained a systolic reading of 183. She denies recent fevers, chills, headache or dizziness. She denies recent nausea, vomit, diarrhea or constipation. She denies recent dysuria, frequency, urgency or hematuria. She denies recent shortness of breath. Allergies: NKA Past surgical history: Ovarian cyst removal Social history: No reported alcohol, drug, or cigarette use. PCP: Dr. Anderson School Cleaner: Dr. Hull <Ellen Abel - Last Filed: 10/18/17 23:35> <Jareth De La Garza - Last Filed: 10/19/17 00:09> - General Chief Complaint: Blood Pressure Problem Stated Complaint: HTN Time Seen by Provider: 10/18/17 18:10 Past History <Ellen Abel - Last Filed: 10/18/17 23:35> - Past Medical History Anemia: No Asthma: No Cancer: No Cardiac Disorders: No CVA: Yes (X2 2012) COPD: No CHF: No Dementia: No Diabetes: No GI Disorders: No Disorders: No HTN: Yes Hypercholesterolemia: Yes Liver Disease: No Seizures: No Thyroid Disease: No - Surgical History Abdominal Surgery: No Appendectomy: Yes Cardiac Surgery: No Cholecystectomy: No Lung Surgery: No Neurologic Surgery: No Orthopedic Surgery: Yes - Suicide/Smoking/Psychosocial Hx Smoking History: Never smoked Have you smoked in the past 12 months: No Information on smoking cessation initiated: No Hx Alcohol Use: No Drug/Substance Use Hx: No Substance Use Type: None Hx Substance Use Treatment: No <Jareth De La Garza - Last Filed: 10/19/17 00:09> - Past Medical History Allergies/Adverse Reactions: Allergies Allergy/AdvReac Type Severity Reaction Status Date / Time No Known Allergies Allergy Verified 10/18/17 17:51 Home Medications: Ambulatory Orders Aspirin [ASA -] 81 mg PO DAILY 03/05/14 Apixaban [Eliquis -] 5 mg PO BID #60 tablet 10/15/17 Diltiazem Cd [Cardizem Cd -] 120 mg PO DAILY #30 cap.cd.24h 10/15/17 Review of Systems - Review of Systems Able to Perform ROS?: Yes Comments:: 10/18/17 18:58 ROS: A complete review of 10 out of 10 review of systems is taken and is negative apart from what is previously mentioned below and in the HPI. <Ellen Abel - Last Filed: 10/18/17 23:35> *Physical Exam - Vital Signs Last Vital Signs Temp Pulse Resp BP Pulse Ox 97.9 F 63 18 153/74 100 10/18/17 17:15 10/18/17 17:15 10/18/17 17:15 10/18/17 17:15 10/18/17 17:15 - Physical Exam Comments: 10/18/17 18:59 Vitals: Triage Vital signs reviewed General Appearance: no acute distress, well nourished well developed, Head: Atraumatic, normocephalic Neck: Supple;No Nuchal rigidity Chest Wall: Nontender Cardiac: Regular rate and rhythm, no murmurs, no rubs, no gallops, Lungs: Clear to auscultation bilateral, good air movement bilaterally, Abdomen: Soft, nondistended, normal bowel sounds, nontender to palpation Rectal: Exam deferred Extremities: Full range of motion to all extremities, no cyanosis, clubbing, or edema Skin: Warm and dry, no rashes or lesions, no petechiae Neuro: AOX3; Cranial Nerves 2-12 grossly intact, Strength intact to all extremities, Sensation intact to all extremities Psych: normal mood, normal affect <Ellen Abel - Last Filed: 10/18/17 23:35> - Vital Signs Last Vital Signs Temp Pulse Resp BP Pulse Ox 97.9 F 63 18 153/74 100 10/18/17 17:15 10/18/17 17:15 10/18/17 17:15 10/18/17 17:15 10/18/17 17:15 <Jareth De La Garza - Last Filed: 10/19/17 00:09> Heart Score/ECG Review - History History: Slightly suspicious - Electrocardiogram EKG: Normal - Age Age: >/= 65 - Risk Factors Risk Factors Heart Score: Yes Hx Hypertension Based on the list above the patient has:: 1-2 risk factors - Troponin Troponin: </= normal limit - Score Heart Score - Total: 3 - ECG Impressions Comment:: 10/18/17 20:27 EKG performed at 6:41 PM. Sinus rhythm at [address] elevations isolated T- wave inversion in lead 3 Interpreted by me <Jareth De La Garza - Last Filed: 10/19/17 00:09> ED Treatment Course - LABORATORY CBC & Chemistry Diagram: 10/18/17 18:49 10/18/17 18:10 <Ellen Abel - Last Filed: 10/18/17 23:35> - LABORATORY CBC & Chemistry Diagram: 10/18/17 18:49 10/18/17 18:10 <Jareth De La Garza - Last Filed: 10/19/17 00:09> Medical Decision Making - Medical Decision Making 10/18/17 18:59 67 year old female with history of hypertension and CVA (X2, last in 2012) presents to the ED with elevated blood pressure, palpitations, and slight chest pressure. Plan: The plan is to perform an EKG, blood work, and chest X-Ray. <Ellen Abel - Last Filed: 10/18/17 23:35> - Medical Decision Making Heart score 3. Troponin negative 2. Patient feels much better. Blood pressure better controlled Patient will follow-up with her doctor on Friday Findings, the need for follow-up and strict return instructions discussed with patient. <Jareth De La Garza - Last Filed: 10/19/17 00:09> *DC/Admit/Observation/Transfer - Attestations Scribe Attestion: 10/18/17 18:59 Documentation prepared by Ellen Abel, acting as center medical and lab director for Jareth De La Garza MD. <Ellen Abel - Last Filed: 10/18/17 23:35> <Jareth De La Garza - Last Filed: 10/19/17 00:09> Diagnosis at time of Disposition: Atypical chest pain - Referrals Referrals: Chelsie Tenorio MD [Primary Care Provider] - - Patient Instructions Printed Discharge Instructions: DI for High Blood Pressure, DI for Chest Pain Additional Instructions: Take all medications as prescribed. Follow-up with her doctor on Friday. Return to the emergency department for any severe worsening symptoms or for any concerns. Print Language: EMIRATI - Post Discharge Activity
[2017-10-18 19:06] LABS: BASO % 0.6 % (0-2.0); EOS % 0.1 % (0-4.5); HEMATOCRIT 36.8 % (32.4-45.2); LYMPH % 11.7 % (8-40); MCH 28.1 pg (25.7-33.7); MCHC 32.7 g/dl (32.0-36.0); MEAN CELL VOLUME 85.9 fl (80-96); MEAN PLT VOLUME 9.6 fl (7.5-11.1); MONO % 4.4 % (3.8-10.2); NEUT % 83.2 % (42.8-82.8); PLATELET COUNT 181 K/MM3 (134-434); RBC 4.28 M/mm3 (3.60-5.2); RDW 14.7 % (11.6-15.6); WHITE BLOOD COUNT 7.8 K/mm3 (4.0-10.0)
[2017-10-18 19:56] LABS: ALBUMIN 3.5 g/dl (3.4-5.0); ANION GAP 3 (8-16); BILIRUBIN,TOTAL 0.1 mg/dL (0.2-1.0); BLOOD UREA NITROGEN 14 mg/dL (7-18); CALCIUM 8.7 mg/dL (8.5-10.1); CHLORIDE 107 mmol/L (98-107); CO2 30 mmol/L (21-32); CREATININE 0.6 mg/dL (0.55-1.02); GLUCOSE,RANDOM 95 mg/dL (74-106); POTASSIUM 4.5 mmol/L (3.5-5.1); SGOT/AST 18 U/L (15-37); SGPT/ALT 24 U/L (12-78); SODIUM 140 mmol/L (136-145); TOT PROT 7.2 g/dl (6.4-8.2)
[2017-10-18 19:59] LABS: ALK PHOS 67 U/L (45-117)
[2017-10-18 21:19] VITALS: BP 143/73; PULSE 59
--- NOTE | 2017-10-19 16:10 | EKG ---
Test Reason : Blood Pressure : / mmHG Vent. Rate : 062 BPM Atrial Rate : 062 BPM P-R Int : 156 ms QRS Dur : 108 ms QT Int : 400 ms P-R-T Axes : 035 -03 003 degrees QTc Int : 406 ms NORMAL SINUS RHYTHM SEPTAL INFARCT , AGE UNDETERMINED ABNORMAL ECG Confirmed by MD SID, DANO ([id number]) on 10/19/2017 4:09:59 PM Referred By: Confirmed By:DANO LAU MD
== END 2017-10-18 22:21 | disposition home or self-care (01) ==
LOC: JER 17:14
DX: R07.89 Other chest pain (principal); I10 Essential (primary) hypertension; I48.91 Unspecified atrial fibrillation; Z79.01 Long term (current) use of anticoagulants; Z79.82 Long term (current) use of aspirin; Z86.73 Personal history of transient ischemic attack (TIA), and cerebral infarction without residual deficits; E78.00 Pure hypercholesterolemia, unspecified
CPT/HCPCS: 36415; 71045-TC-FY; 80053; 84484; 85025; 93005; 93010; 99282-25

== ENCOUNTER 2018-01-07 05:47 | Inpatient (IN) | payer OTHER ==
[2018-01-07 05:53] VITALS: BMI 29.7
--- NOTE | 2018-01-07 06:11 | PDOC ---
History of Present Illness - General History Source: Patient Exam Limitations: No Limitations - History of Present Illness Initial Comments: 01/07/18 06:14 The patient is a 67 year old female, with a significant past medical history of Afib, hypertension and CVA (X2, last in 2012), who presents to the emergency department via EMS with, sudden onset palpitations and mild chest pain. Approximately, 3 hours prior to arrival the patient reports taking an Aspirin, prescribed by her doctor for her heart conditions. She reports associated shortness of breath. She denies recent fevers, chills, headache or dizziness. She denies recent nausea, vomit, diarrhea or constipation. She denies recent dysuria, frequency, urgency or hematuria. Allergies: NKA Past surgical history: Ovarian cyst removal Social history: No reported alcohol, drug, or cigarette use. PCP: Dr. Anderson Metal Finish Inspector: Dr. Hull <Ellen Abel - Last Filed: 01/07/18 06:14> - General History Source: Patient <Kurt Calderon - Last Filed: 01/08/18 19:21> - General Chief Complaint: Palpitations Stated Complaint: PALPITATIONS Time Seen by Provider: 01/07/18 06:07 Past History <Ellen Abel - Last Filed: 01/07/18 06:14> - Past Medical History Anemia: No Asthma: No Cancer: No Cardiac Disorders: No CVA: Yes (X2 2013) COPD: No CHF: No Dementia: No Diabetes: No GI Disorders: No Disorders: No HTN: Yes Hypercholesterolemia: Yes Liver Disease: No Seizures: No Thyroid Disease: No - Surgical History Abdominal Surgery: No Appendectomy: Yes Cardiac Surgery: No Cholecystectomy: No Lung Surgery: No Neurologic Surgery: No Orthopedic Surgery: Yes - Immunization History Immunization Up to Date: Yes - Suicide/Smoking/Psychosocial Hx Smoking History: Never smoked Have you smoked in the past 12 months: No Hx Alcohol Use: No Drug/Substance Use Hx: No Substance Use Type: None Hx Substance Use Treatment: No <Kurt Calderon - Last Filed: 01/08/18 19:21> - Past Medical History Allergies/Adverse Reactions: Allergies Allergy/AdvReac Type Severity Reaction Status Date / Time No Known Allergies Allergy Verified 10/18/17 17:51 Home Medications: Ambulatory Orders Aspirin [ASA -] 81 mg PO DAILY 03/05/14 Apixaban [Eliquis -] 5 mg PO BID #60 tablet 10/15/17 Diltiazem Cd [Cardizem Cd -] 120 mg PO DAILY #30 cap.cd.24h 10/15/17 Lisinopril/Hydrochlorothiazide [Lisinopril-Hctz 20-25 mg Tab] 1 each PO DAILY Review of Systems - Review of Systems Able to Perform ROS?: Yes Comments:: 01/07/18 06:14 CONSTITUTIONAL: Absent: fever, no chills, no fatigue EYES: Absent: visual changes ENT: Absent: ear pain, no sore throat CARDIOVASCULAR: Present: chest pain, palpitations, SOB RESPIRATORY: Absent: cough GI: Absent: abdominal pain, no nausea, no vomiting, no constipation, no diarrhea GENITOURINARY: Absent: dysuria, no frequency, no hematuria MUSKULOSKELETAL: Absent: back pain, no arthralgia, no myalgia SKIN: Absent: rash NEURO: Absent: headache All Other Systems: Reviewed and Negative <Ellen Abel - Last Filed: 01/07/18 06:14> *Physical Exam - Vital Signs Last Vital Signs Temp Pulse Resp BP Pulse Ox 98.3 F 130 H 20 145/81 98 01/07/18 05:50 01/07/18 05:56 01/07/18 05:50 01/07/18 05:50 01/07/18 05:50 - Physical Exam Comments: 01/07/18 06:15 GENERAL: Well developed, well nourished. Awake and alert. No acute distress. HEENT: Normocephalic, atraumatic. PERRLA, EOMI. No conjunctival pallor. Sclera are non- icteric. Moist mucous membranes. Oropharynx is clear. NECK: Supple. Full ROM. No JVD. Carotid pulses 2+ and symmetric, without bruits. No thyromegaly. No lymphadenopathy. +CARDIOVASCULAR: Irregularly irregular. No murmurs, rubs, or gallops. Distal pulses are 2+ and symmetric. PULMONARY: No evidence of respiratory distress. Lungs clear to auscultation bilaterally. No wheezing, rales or rhonchi. ABDOMINAL: Soft. Non-tender. Non-distended. No rebound or guarding. No organomegaly. Normoactive bowel sounds. MUSCULOSKELETAL Normal range of motion at all joints. No bony deformities or tenderness. No CVA tenderness. EXTREMITIES: No cyanosis. No clubbing. No edema. No calf tenderness. SKIN: Warm and dry. Normal capillary refill. No rashes. No jaundice. NEUROLOGICAL: Alert, awake, appropriate. Cranial nerves 2-12 intact. No deficits to light touch and temperature in face, upper extremities and lower extremities. No motor deficits in the in face, upper extremities and lower extremities. Normoreflexic in the upper and lower extremities. Normal speech. Toes are down- going bilaterally. Gait is normal without ataxia. PSYCHIATRIC: Cooperative. Good eye contact. Appropriate mood and affect. <Ellen Abel - Last Filed: 01/07/18 06:14> - Vital Signs Last Vital Signs Temp Pulse Resp BP Pulse Ox 98.3 F 130 H 20 145/81 98 01/07/18 05:50 01/07/18 05:56 01/07/18 05:50 01/07/18 05:50 01/07/18 05:50 <Kurt Calderon - Last Filed: 01/08/18 19:21> Heart Score/ECG Review - ECG Intrepretation Comment:: 01/07/18 06:16 EKG performed on: 07 January 2018 at 5:53:36 Vent Rate 137 bpm [place] interval * ms QRS duration 98 ms QT/QTc 306/462 ms P-R-T axes * 4 164 Atrial fibrillation with rapid ventricular response Nonspecific ST and T wave abnormality Abnormal ECG <Ellen Abel - Last Filed: 01/07/18 06:14> ED Treatment Course - LABORATORY CBC & Chemistry Diagram: 01/08/18 05:30 01/08/18 05:30 <Kurt Calderon - Last Filed: 01/08/18 19:21> Medical Decision Making - Medical Decision Making 01/08/18 19:21 Dr. Calderon: The scribe's documentation has been prepared under my direction and personally reviewed by me in its entirery. I confirm that the note above accurately reflects all work, treatment, procedures, and medical decision making performed by me. <Kurt Calderon - Last Filed: 01/08/18 19:21> *DC/Admit/Observation/Transfer - Attestations Scribe Attestion: 01/07/18 06:17 Documentation prepared by Ellen Abel, acting as claim review medical director for Kurt Calderon DO. <Ellen Abel - Last Filed: 01/07/18 06:14> <Kurt Calderon - Last Filed: 01/08/18 19:21> Diagnosis at time of Disposition: Ventricular tachycardia (paroxysmal) - Discharge Dispostion Condition at time of disposition: Stable
[2018-01-07] MEDS ORDERED: ASPIRIN 81 MG CHEWABLE TABLETS PO ONE (06:12)
[2018-01-07] MEDS ORDERED: dilTIAZem HCL 50 MG/10 ML - 10 ML VIAL IVPUSH ONE (06:12)
[2018-01-07] MEDS ORDERED: dilTIAZem HCL 50 MG/10 ML - 10 ML VIAL ONE (06:17)
[2018-01-07] MEDS ORDERED: ASPIRIN 81 MG CHEWABLE TABLETS ONE (06:30)
[2018-01-07 06:53] LABS: BASO % 0.7 % (0-2.0); EOS % 0.5 % (0-4.5); HEMATOCRIT 39.1 % (32.4-45.2); LYMPH % 23.6 % (8-40); MCH 28.4 pg (25.7-33.7); MCHC 33.1 g/dl (32.0-36.0); MEAN CELL VOLUME 85.7 fl (80-96); MEAN PLT VOLUME 9.4 fl (7.5-11.1); MONO % 7.9 % (3.8-10.2); NEUT % 67.3 % (42.8-82.8); PLATELET COUNT 199 K/MM3 (134-434); RBC 4.57 M/mm3 (3.60-5.2); RDW 14.3 % (11.6-15.6); WHITE BLOOD COUNT 5.4 K/mm3 (4.0-10.0)
[2018-01-07 07:18] LABS: ALBUMIN 3.6 g/dl (3.4-5.0); ANION GAP 7 (8-16); BILIRUBIN,TOTAL 0.3 mg/dL (0.2-1.0); BLOOD UREA NITROGEN 18 mg/dL (7-18); CALCIUM 8.8 mg/dL (8.5-10.1); CHLORIDE 102 mmol/L (98-107); CO2 30 mmol/L (21-32); CREATININE 0.7 mg/dL (0.55-1.02); GLUCOSE,RANDOM 110 mg/dL (74-106); MAGNESIUM 2.2 mg/dL (1.8-2.4); POTASSIUM 4.1 mmol/L (3.5-5.1); SGOT/AST 24 U/L (15-37); SGPT/ALT 25 U/L (12-78); SODIUM 139 mmol/L (136-145); TOT PROT 7.7 g/dl (6.4-8.2)
[2018-01-07 07:19] LABS: INR 1.27 (0.82-1.09); PROTHROMBIN TIME (PATIENT) 14.3 SEC (9.7-13.0)
[2018-01-07 07:20] LABS: ALK PHOS 68 U/L (45-117)
--- NOTE | 2018-01-07 09:52 | PDOC ---
*Physical Exam - Vital Signs Last Vital Signs Temp Pulse Resp BP Pulse Ox 98.3 F 100 H 18 129/76 100 01/07/18 05:50 01/07/18 08:12 01/07/18 08:12 01/07/18 08:12 01/07/18 08:17 <Roman Gatica - Last Filed: 01/07/18 10:43> - Vital Signs Last Vital Signs Temp Pulse Resp BP Pulse Ox 98.3 F 100 H 18 129/76 100 01/07/18 05:50 01/07/18 08:12 01/07/18 08:12 01/07/18 08:12 01/07/18 08:17 <Kiko Casas - Last Filed: 01/07/18 11:46> ED Treatment Course - LABORATORY CBC & Chemistry Diagram: 01/07/18 06:35 01/07/18 06:35 - ADDITIONAL ORDERS Additional order review: Laboratory Results 01/07/18 01/07/18 01/07/18 09:08 06:35 06:35 PT with INR 14.30 H INR 1.27 H Sodium 139 Potassium 4.1 Chloride 102 Carbon Dioxide 30 Anion Gap 7 L BUN 18 Creatinine 0.7 Creat Clearance w eGFR > 60 Random Glucose 110 H Calcium 8.8 Magnesium 2.2 Total Bilirubin 0.3 D AST 24 ALT 25 Alkaline Phosphatase 68 Creatine Kinase 137 Troponin I < 0.02 < 0.02 Total Protein 7.7 Albumin 3.6 01/07/18 06:35 RBC 4.57 MCV 85.7 MCHC 33.1 RDW 14.3 MPV 9.4 Neutrophils % 67.3 Lymphocytes % 23.6 D Monocytes % 7.9 Eosinophils % 0.5 D Basophils % 0.7 - Medications Given in the ED: ED Medications Discontinued Medications Generic Name Dose Route Start Last Admin Trade Name Freq PRN Reason Stop Dose Admin Aspirin 162 mg 01/07/18 06:12 01/07/18 06:32 Asa - PO 01/07/18 06:13 162 mg ONCE ONE Administration Diltiazem HCl 20 mg 01/07/18 06:12 01/07/18 06:28 Cardizem Injection - IVPUSH 01/07/18 06:13 20 mg ONCE ONE Administration <Roman Gatica - Last Filed: 01/07/18 10:43> - LABORATORY CBC & Chemistry Diagram: 01/07/18 06:35 01/07/18 06:35 - ADDITIONAL ORDERS Additional order review: Laboratory Results 01/07/18 01/07/18 06:35 06:35 PT with INR 14.30 H INR 1.27 H Sodium 139 Potassium 4.1 Chloride 102 Carbon Dioxide 30 Anion Gap 7 L BUN 18 Creatinine 0.7 Creat Clearance w eGFR > 60 Random Glucose 110 H Calcium 8.8 Magnesium 2.2 Total Bilirubin 0.3 D AST 24 ALT 25 Alkaline Phosphatase 68 Creatine Kinase 137 Troponin I < 0.02 Total Protein 7.7 Albumin 3.6 01/07/18 06:35 RBC 4.57 MCV 85.7 MCHC 33.1 RDW 14.3 MPV 9.4 Neutrophils % 67.3 Lymphocytes % 23.6 D Monocytes % 7.9 Eosinophils % 0.5 D Basophils % 0.7 - Medications Given in the ED: ED Medications Discontinued Medications Generic Name Dose Route Start Last Admin Trade Name Freq PRN Reason Stop Dose Admin Aspirin 162 mg 01/07/18 06:12 01/07/18 06:32 Asa - PO 01/07/18 06:13 162 mg ONCE ONE Administration Diltiazem HCl 20 mg 01/07/18 06:12 01/07/18 06:28 Cardizem Injection - IVPUSH 01/07/18 06:13 20 mg ONCE ONE Administration <Kiko Casas - Last Filed: 01/07/18 11:46> Medical Decision Making - Medical Decision Making 01/07/18 10:00 Dr. Hull paged at service at 8:40AM and at the office at 9:10AM and 9:50AM 01/07/18 10:30 Dr. Fiore pagejabari overhead at 10:15AM 01/07/18 10:43 Paged office at 10:40AM, who say Dr. Ribeiro is covering for their group. Paged Dr. Ribeiro overhead, discussed case. <Roman Gatica - Last Filed: 01/07/18 10:43> - Medical Decision Making 01/07/18 11:41 Pt had 9 beats of V.Tach at 8:39AM with palpitations Vitals otherwise wnl Discussed case with Dr. Ribeiro (covering for Dr. Hull) who would like to hold off on adding antiarrhythmic and on his way to see pt Pt feels well now - took her home dose ER diltiazem 120mg, and got IV dilt ON Case discussed with resident Dr. Ohara, accepted for admission to Dr. Cristina Case discussed in detail with admitting physician including history, physical exam and ancillary studies. Admitting physician has assumed care for the patient, will follow all pending diagnostics and will complete the evaluation and treatment. <Kiko Casas - Last Filed: 01/07/18 11:46> *DC/Admit/Observation/Transfer <Roman Gatica - Last Filed: 01/07/18 10:43> - Discharge Dispostion Decision to Admit order: Yes - Attestations Physician Attestion: 01/07/18 11:46 I, Dr. Kiko Casas MD, attest that this document has been prepared under my direction and personally reviewed by me in its entirety. I further attest, that it accurately reflects all work, treatment, procedures and medical decision -making performed by me. <Kiko Casas - Last Filed: 01/07/18 11:46> Diagnosis at time of Disposition: Ventricular tachycardia (paroxysmal) - Discharge Dispostion Condition at time of disposition: Stable - Referrals Referrals: Chelsie Tenorio MD [Primary Care Provider] - - Patient Instructions - Post Discharge Activity
--- NOTE | 2018-01-07 10:41 | EKG ---
Test Reason : Blood Pressure : / mmHG Vent. Rate : 137 BPM Atrial Rate : 141 BPM P-R Int : 000 ms QRS Dur : 098 ms QT Int : 306 ms P-R-T Axes : 000 004 164 degrees QTc Int : 462 ms ATRIAL FIBRILLATION WITH RAPID VENTRICULAR RESPONSE NONSPECIFIC ST AND T WAVE ABNORMALITY ABNORMAL ECG WHEN COMPARED WITH ECG OF 18-OCT-2017 18:41, SIGNIFICANT CHANGES HAVE OCCURRED Confirmed by ENDY FRENCH, ARLYN ([id number]) on 01/07/2018 10:41:20 AM Referred By: Confirmed By:ARLYN SCHUMACHER MD
--- NOTE | 2018-01-07 10:41 | EKG ---
Test Reason : Blood Pressure : / mmHG Vent. Rate : 103 BPM Atrial Rate : 100 BPM P-R Int : 000 ms QRS Dur : 102 ms QT Int : 334 ms P-R-T Axes : 000 000 027 degrees QTc Int : 437 ms ATRIAL FIBRILLATION WITH RAPID VENTRICULAR RESPONSE SEPTAL INFARCT , AGE UNDETERMINED ABNORMAL ECG WHEN COMPARED WITH ECG OF 07-JAN-2018 05:53, SEPTAL INFARCT IS NOW PRESENT Confirmed by ENDY FRENCH, ARLYN ([id number]) on 01/07/2018 10:41:29 AM Referred By: Confirmed By:ARLYN SCHUMACHER MD
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
--- NOTE | 2018-01-07 13:03 | PN ---
Teaching Attending Note Name of Resident: Mayda Gallardo ATTENDING PHYSICIAN STATEMENT I saw and evaluated the patient. I reviewed the resident's note and discussed the case with the resident. I agree with the resident's findings and plan as documented. SUBJECTIVE: Patient is a 67yo female presented to ED. with palpitations and was found to have Afib. denies having any chest pain , fever or shortness of breath. OBJECTIVE: Vital Signs Temperature 98.3 F 01/07/18 05:50 Pulse Rate 100 H 01/07/18 08:12 Respiratory Rate 18 01/07/18 08:12 Blood Pressure 129/76 01/07/18 08:12 O2 Sat by Pulse Oximetry (%) 100 01/07/18 08:17 CBCD WBC 5.4 K/mm3 (4.0-10.0) D 01/07/18 06:35 RBC 4.57 M/mm3 (3.60-5.2) 01/07/18 06:35 Hgb 13.0 GM/dL (10.7-15.3) 01/07/18 06:35 Hct 39.1 % (32.4-45.2) 01/07/18 06:35 MCV 85.7 fl (80-96) 01/07/18 06:35 MCHC 33.1 g/dl (32.0-36.0) 01/07/18 06:35 RDW 14.3 % (11.6-15.6) 01/07/18 06:35 Plt Count 199 K/MM3 (134-434) 01/07/18 06:35 MPV 9.4 fl (7.5-11.1) 01/07/18 06:35 CMP Sodium 139 mmol/L (136-145) 01/07/18 06:35 Potassium 4.1 mmol/L (3.5-5.1) 01/07/18 06:35 Chloride 102 mmol/L (98-107) 01/07/18 06:35 Carbon Dioxide 30 mmol/L (21-32) 01/07/18 06:35 Anion Gap 7 (8-16) L 01/07/18 06:35 BUN 18 mg/dL (7-18) 01/07/18 06:35 Creatinine 0.7 mg/dL (0.55-1.02) 01/07/18 06:35 Creat Clearance w eGFR > 60 (>60) 01/07/18 06:35 Random Glucose 110 mg/dL (74-106) H 01/07/18 06:35 Calcium 8.8 mg/dL (8.5-10.1) 01/07/18 06:35 Total Bilirubin 0.3 mg/dL (0.2-1.0) D 01/07/18 06:35 AST 24 U/L (15-37) 01/07/18 06:35 ALT 25 U/L (12-78) 01/07/18 06:35 Alkaline Phosphatase 68 U/L (45-117) 01/07/18 06:35 Total Protein 7.7 g/dl (6.4-8.2) 01/07/18 06:35 Albumin 3.6 g/dl (3.4-5.0) 01/07/18 06:35 CARDIAC ENZYMES Creatine Kinase 137 IU/L (26-192) 01/07/18 06:35 Troponin I < 0.02 ng/ml (0.00-0.05) 01/07/18 09:08 Home Medications Medication Instructions Recorded Aspirin [ASA -] 81 mg PO DAILY 03/05/14 Apixaban [Eliquis -] 5 mg PO BID #60 tablet 10/15/17 Diltiazem Cd [Cardizem Cd -] 120 mg PO DAILY #30 cap.cd.24h 10/15/17 Lisinopril/Hydrochlorothiazide 1 each PO DAILY 01/07/18 [Lisinopril-Hctz 20-25 mg Tab] Current Medications Generic Name Dose Route Start Last Admin Trade Name Freq PRN Reason Stop Dose Admin Apixaban 5 mg 01/07/18 22:00 Eliquis - PO BID RANDALL Aspirin 81 mg 01/08/18 10:00 Asa - PO DAILY RANDALL Diltiazem HCl 120 mg 01/08/18 10:00 Cardizem Cd - PO DAILY RANDALL Sodium Chloride 1,000 mls @ 83 mls/hr 01/07/18 11:45 01/07/18 13:27 Normal Saline - IV 83 mls/hr ASDIR RANDALL Administration Lisinopril 20 mg 01/08/18 10:00 Prinivil PO DAILY RANDALL Metoprolol Succinate 25 mg 01/07/18 22:00 Toprol Xl - PO HS RANDALL Metoprolol Tartrate 5 mg 01/07/18 18:04 Lopressor Injection - IVPUSH Q4H PRN HYPERTENSION PE: as per resident's note CXR: No acute pathology ASSESSMENT AND PLAN: Patient is a 67 year old female presented to the ED c/o having chest pains with palpitation that woke her up from her sleep around 3am and was found to have 9 runs of Vtach. # Afib with RVR , rate is controlled by Lopressor IV 5mg q4 prn, also patient is on cardizem ., cardio appreciated, On Eliquis 5mg po bid at home will continue. CE q6h x 3 sets ; 2 sets are negative, will check TSH # Hypertension- Controlled Will continue Lisinopril 20mg and hold HCTZ 25 mg to avoid any electrolyte abnormalities that could cause Vtach # Hyperlipidemia Not on any meds; will add lipitor 40mg po daily DVT Prophylaxis : on Eliquis Code Status: Full Code
[2018-01-07] MEDS: SODIUM CHLORIDE 1,000 ML IV SCH (13:27)
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
[2018-01-07] MEDS ORDERED: METOPROLOL TARTRATE 5 MG/5 ML VIAL ONE (17:55)
[2018-01-07] MEDS ORDERED: METOPROLOL TARTRATE 5 MG/5 ML VIAL IVPUSH ONE (18:00)
[2018-01-07] MEDS: ATORVASTATIN CA 40 MG TABLET (FP) PO SCH (21:01)
[2018-01-07] MEDS: APIXABAN 5 MG TABLET PO SCH (21:01)
[2018-01-07] MEDS ORDERED: metoPROLOL SUCCINATE 25 MG TAB.SR.24H (FP) PO SCH (22:00)
[2018-01-08 06:17] LABS: BASO % 0.6 % (0-2.0); EOS % 1.1 % (0-4.5); HEMATOCRIT 37.9 % (32.4-45.2); HEMOGLOBIN 12.3 GM/dL (10.7-15.3); MCH 27.7 pg (25.7-33.7); MCHC 32.4 g/dl (32.0-36.0); MEAN CELL VOLUME 85.7 fl (80-96); MEAN PLT VOLUME 9.6 fl (7.5-11.1); MONO % 8.4 % (3.8-10.2); NEUT % 51.9 % (42.8-82.8); PLATELET COUNT 178 K/MM3 (134-434); RBC 4.42 M/mm3 (3.60-5.2); RDW 14.3 % (11.6-15.6); WHITE BLOOD COUNT 4.8 K/mm3 (4.0-10.0)
[2018-01-08] MEDS: METOPROLOL TARTRATE 5 MG/5 ML VIAL IVPUSH PRN ×2 (06:22→09:31)
[2018-01-08 06:39] LABS: CHLORIDE 109 mmol/L (98-107); POTASSIUM 3.9 mmol/L (3.5-5.1); SODIUM 141 mmol/L (136-145)
[2018-01-08 06:55] LABS: ALBUMIN 2.7 g/dl (3.4-5.0); ALK PHOS 53 U/L (45-117); ANION GAP 6 (8-16); BILIRUBIN,TOTAL 0.3 mg/dL (0.2-1.0); BLOOD UREA NITROGEN 16 mg/dL (7-18); CO2 26 mmol/L (21-32); CREATININE 0.5 mg/dL (0.55-1.02); GLUCOSE,RANDOM 89 mg/dL (74-106); MAGNESIUM 1.8 mg/dL (1.8-2.4); PHOSPHOROUS 3.3 mg/dL (2.5-4.9); SGOT/AST 17 U/L (15-37); SGPT/ALT 22 U/L (12-78); TOT PROT 6.2 g/dl (6.4-8.2)
[2018-01-08] MEDS: APIXABAN 5 MG TABLET PO SCH ×2 (09:32→21:46)
[2018-01-08] MEDS: LISINOPRIL 20 MG TABLET (FP) PO SCH (09:34)
[2018-01-08] MEDS: ASPIRIN 81 MG CHEWABLE TABLETS PO SCH (09:34)
[2018-01-08 11:11] LABS: CHOLESTEROL 146 mg/dL (50-200); HDL CHOLESTEROL 51 mg/dL (40-60); TRIGLYCERIDES 70 mg/dL (35-160)
--- NOTE | 2018-01-08 11:21 | PN ---
Progress Note (short form) - Note Progress Note: s: no cp sob dizzy; +palps o: Vital Signs Period Temp Pulse Resp BP Sys/Valdes Pulse Ox Last 24 Hr 97.8 F-98.3 F 79-167 18-20 101-153/56-78 97-100 nad, calm jvd flat, neck supple ctab, nl effort ireg s1s2 no mrg + bs soft nt nd, no hsm ext without e/c/c aaox3 no jaundice, diaphoresis Current Medications Generic Name Dose Route Start Last Admin Trade Name Freq PRN Reason Stop Dose Admin Apixaban 5 mg 01/07/18 22:00 01/08/18 09:32 Eliquis - PO 5 mg BID RANDALL Administration Aspirin 81 mg 01/08/18 10:00 01/08/18 09:34 Asa - PO 81 mg DAILY RANDALL Administration Atorvastatin Calcium 40 mg 01/07/18 22:00 01/07/18 21:01 Lipitor - PO 40 mg HS RANDALL Administration Diltiazem HCl 120 mg 01/08/18 10:00 01/08/18 09:34 Cardizem Cd - PO 120 mg DAILY RANDALL Administration Sodium Chloride 1,000 mls @ 83 mls/hr 01/07/18 11:45 01/07/18 13:27 Normal Saline - IV 83 mls/hr ASDIR RANDALL Administration Lisinopril 20 mg 01/08/18 10:00 01/08/18 09:34 Prinivil PO 20 mg DAILY RANDALL Administration Metoprolol Succinate 25 mg 01/07/18 22:00 01/07/18 21:01 Toprol Xl - PO 25 mg HS RANDALL Administration Metoprolol Tartrate 5 mg 01/07/18 18:04 01/08/18 09:31 Lopressor Injection - IVPUSH 5 mg Q4H PRN Administration HYPERTENSION CBC, BMP 01/08/18 05:30 01/08/18 05:30 tele: afib 90s, rvr at times echo 12/2017: nl lv, rv tds, mild mr, mild tr, mild pr, nl rvsp echo 09/2017: nl lv/rv size/fn. 1+ mac, 1+ tr. echo 12/2015: nl lv/rv, no sig valve path ASSESSMENT/PLAN 67 year old female with a significant PMH of HTN and CVA (X2, last in 2012), pafib, here with afib with rvr. afib - cont eliquis - rvr at times, will increase bb, cont tele htn - cont current meds NSVT: -brief (9 beats) NSVT vs aberrant conduction here -echo with nl lvef -cont bb, tele
[2018-01-08] MEDS: SODIUM CHLORIDE 1,000 ML IV SCH (12:07)
--- NOTE | 2018-01-08 17:50 | PN ---
Teaching Attending Note Name of Resident: Murray Phan ATTENDING PHYSICIAN STATEMENT I saw and evaluated the patient. I reviewed the resident's note and discussed the case with the resident. I agree with the resident's findings and plan as documented. SUBJECTIVE: Patient continues to have tachycardia. specially when ambulating HR is in 150's on the monitor when ambulating OBJECTIVE: Vital Signs Temperature 98.6 F 01/08/18 14:00 Pulse Rate 94 H 01/08/18 14:00 Respiratory Rate 18 01/08/18 08:28 Blood Pressure 103/60 01/08/18 14:00 O2 Sat by Pulse Oximetry (%) 97 01/08/18 08:28 CBCD WBC 4.8 K/mm3 (4.0-10.0) 01/08/18 05:30 RBC 4.42 M/mm3 (3.60-5.2) 01/08/18 05:30 Hgb 12.3 GM/dL (10.7-15.3) 01/08/18 05:30 Hct 37.9 % (32.4-45.2) 01/08/18 05:30 MCV 85.7 fl (80-96) 01/08/18 05:30 MCHC 32.4 g/dl (32.0-36.0) 01/08/18 05:30 RDW 14.3 % (11.6-15.6) 01/08/18 05:30 Plt Count 178 K/MM3 (134-434) 01/08/18 05:30 MPV 9.6 fl (7.5-11.1) 01/08/18 05:30 CMP Sodium 141 mmol/L (136-145) 01/08/18 05:30 Potassium 3.9 mmol/L (3.5-5.1) 01/08/18 05:30 Chloride 109 mmol/L (98-107) H 01/08/18 05:30 Carbon Dioxide 26 mmol/L (21-32) 01/08/18 05:30 Anion Gap 6 (8-16) L 01/08/18 05:30 BUN 16 mg/dL (7-18) 01/08/18 05:30 Creatinine 0.5 mg/dL (0.55-1.02) L 01/08/18 05:30 Creat Clearance w eGFR > 60 (>60) 01/08/18 05:30 Random Glucose 89 mg/dL (74-106) 01/08/18 05:30 Calcium 8.0 mg/dL (8.5-10.1) L 01/08/18 05:30 Total Bilirubin 0.3 mg/dL (0.2-1.0) 01/08/18 05:30 AST 17 U/L (15-37) 01/08/18 05:30 ALT 22 U/L (12-78) 01/08/18 05:30 Alkaline Phosphatase 53 U/L (45-117) 01/08/18 05:30 Total Protein 6.2 g/dl (6.4-8.2) L 01/08/18 05:30 Albumin 2.7 g/dl (3.4-5.0) L 01/08/18 05:30 CARDIAC ENZYMES Creatine Kinase 137 IU/L (26-192) 01/07/18 06:35 Troponin I < 0.02 ng/ml (0.00-0.05) 01/07/18 17:30 Current Medications Generic Name Dose Route Start Last Admin Trade Name Freq PRN Reason Stop Dose Admin Apixaban 5 mg 01/07/18 22:00 01/08/18 09:32 Eliquis - PO 5 mg BID RANDALL Administration Aspirin 81 mg 01/08/18 10:00 01/08/18 09:34 Asa - PO 81 mg DAILY RANDALL Administration Atorvastatin Calcium 40 mg 01/07/18 22:00 01/07/18 21:01 Lipitor - PO 40 mg HS RANDALL Administration Diltiazem HCl 120 mg 01/08/18 10:00 01/08/18 09:34 Cardizem Cd - PO 120 mg DAILY RANDALL Administration Sodium Chloride 1,000 mls @ 83 mls/hr 01/07/18 11:45 01/08/18 12:07 Normal Saline - IV 83 mls/hr ASDIR RANDALL Administration Lisinopril 20 mg 01/08/18 10:00 01/08/18 09:34 Prinivil PO 20 mg DAILY RANDALL Administration Metoprolol Succinate 50 mg 01/08/18 22:00 Toprol Xl - PO HS RANDALL Metoprolol Tartrate 5 mg 01/07/18 18:04 01/08/18 09:31 Lopressor Injection - IVPUSH 5 mg Q4H PRN Administration HYPERTENSION Home Medications Medication Instructions Recorded Aspirin [ASA -] 81 mg PO DAILY 03/05/14 Apixaban [Eliquis -] 5 mg PO BID #60 tablet 10/15/17 Diltiazem Cd [Cardizem Cd -] 120 mg PO DAILY #30 cap.cd.24h 10/15/17 Lisinopril/Hydrochlorothiazide 1 each PO DAILY 01/07/18 [Lisinopril-Hctz 20-25 mg Tab] PE: as per resident's note Heart: No murmur appreciated, rate of 150's Abdomen: soft, NT, POsitive for BS Chest: CTA BL CXR: No acute pathology ASSESSMENT AND PLAN: Patient is a 67 year old female presented to the ED c/o having chest pains with palpitation that woke her up from her sleep around 3am and was found to have 9 runs of Vtach. # Afib with RVR , toprol increased to 50mg daily , as per Dr. Carias to continue on cardizem 120mg po daily. On Eliquis 5mg po bid at home will continue. Smith are negative so far. # Hypertension- Controlled Will continue Lisinopril 20mg and hold HCTZ 25 mg to avoid any electrolyte abnormalities that could cause Vtach # Hyperlipidemia Not on any meds; will add lipitor 40mg po daily DVT Prophylaxis : on Eliquis Code Status: Full Code
--- NOTE | 2018-01-08 18:56 | PN ---
Physical Exam: SUBJECTIVE: Pt noted to be tachycardic to 160's this morning upon examination in atrial fibrillation. Pt reports walking to the bathroom and back and feeling her palpitations with some chest pressure. When pt sat back in bed her pressure resolved and shortly after her palpitations resolved. Pt denies any history of thyroid problems. Pt denies f/c/n/v, shortness of breath, abdominal pain, dysuria/polyuria, diarrhea/constipation Pt's last BM was 1 day ago OBJECTIVE: Vital Signs Period Temp Pulse Resp BP Sys/Valdes Pulse Ox Last 24 Hr 97.8 F-98.6 F 79-152 18-20 101-153/56-78 97-98 GENERAL: NAD, awake, alert, and fully oriented HEENT: NC/AT, EOMI, KATELIN, sclera anicteric NECK: No JVD, no thyromegaly LUNGS: CTA bilaterally, no wheezes, no crackles, no accessory muscle use. HEART: Tachycardic and irregularly irregular, S1, S2 without murmur ABDOMEN: Soft, nontender, nondistended, normoactive bowel sounds, no guarding, no rebound, no hepatosplenomegaly, no masses. EXTREMITIES: 2+ DP pulses, warm, well-perfused, no edema. PSYCH: Normal mood, normal affect. SKIN: Warm, dry, normal turgor, no rashes or lesions noted Laboratory Results - last 24 hr 01/07/18 01/08/18 01/08/18 17:30 05:30 05:30 WBC 4.8 RBC 4.42 Hgb 12.3 Hct 37.9 MCV 85.7 MCH 27.7 MCHC 32.4 RDW 14.3 Plt Count 178 MPV 9.6 Absolute Neuts (auto) 2.5 Neutrophils % 51.9 D Lymphocytes % 38.0 D Monocytes % 8.4 Eosinophils % 1.1 D Basophils % 0.6 Nucleated RBC % 0 Sodium 141 Potassium 3.9 Chloride 109 H Carbon Dioxide 26 Anion Gap 6 L BUN 16 Creatinine 0.5 L Creat Clearance w eGFR > 60 Random Glucose 89 Calcium 8.0 L Phosphorus 3.3 Magnesium 1.8 Total Bilirubin 0.3 AST 17 ALT 22 Alkaline Phosphatase 53 Troponin I < 0.02 Total Protein 6.2 L Albumin 2.7 L Triglycerides 70 Cholesterol 146 Total LDL Cholesterol 89 HDL Cholesterol 51 TSH 1.10 01/08/18 05:30 WBC RBC Hgb Hct MCV MCH MCHC RDW Plt Count MPV Absolute Neuts (auto) Neutrophils % Lymphocytes % Monocytes % Eosinophils % Basophils % Nucleated RBC % Sodium Potassium Chloride Carbon Dioxide Anion Gap BUN Creatinine Creat Clearance w eGFR Random Glucose Calcium Phosphorus Magnesium Total Bilirubin AST ALT Alkaline Phosphatase Troponin I Total Protein Albumin Triglycerides Cancelled Cholesterol Cancelled Total LDL Cholesterol Cancelled HDL Cholesterol Cancelled TSH Active Medications Generic Name Dose Route Start Last Admin Trade Name Freq PRN Reason Stop Dose Admin Apixaban 5 mg 01/07/18 22:00 01/08/18 09:32 Eliquis - PO 5 mg BID RANDALL Administration Aspirin 81 mg 01/08/18 10:00 01/08/18 09:34 Asa - PO 81 mg DAILY RANDALL Administration Atorvastatin Calcium 40 mg 01/07/18 22:00 01/07/18 21:01 Lipitor - PO 40 mg HS RANDALL Administration Diltiazem HCl 120 mg 01/08/18 10:00 01/08/18 09:34 Cardizem Cd - PO 120 mg DAILY RANDALL Administration Sodium Chloride 1,000 mls @ 83 mls/hr 01/07/18 11:45 01/08/18 12:07 Normal Saline - IV 83 mls/hr ASDIR RANDALL Administration Lisinopril 20 mg 01/08/18 10:00 01/08/18 09:34 Prinivil PO 20 mg DAILY RANDALL Administration Metoprolol Succinate 50 mg 01/08/18 22:00 Toprol Xl - PO HS RANDALL Metoprolol Tartrate 5 mg 01/07/18 18:04 01/08/18 09:31 Lopressor Injection - IVPUSH 5 mg Q4H PRN Administration HYPERTENSION ASSESSMENT/PLAN: 1) Afib with RVR --One run of V-tach (9 beats long) on admission in ED --No other V-tach events noted --Currently with episodic periods of severe tachycardia --Dr. Hull on board --Increase BB --> Toprol XL increased to 50mg HS from 25 --Cardizem 120mg qDaily on board --Lopressor 5mg q4h IVP PRN tachycardia on board --Continue Eliquis for AC --If pt continues to have episodic severe tachycardic events possibility of increasing Cardizem to 240 vs. d/c BB with amiodarone added on 2) HTN --Well controlled currently --Continue Lisinopril 20mg and HCTZ 25mg --BB and Cardizem as above FEN: Fluids: can discontinue Electrolyte abnormalities: None currently Nutrition: Sodium-controlled PPX DVT - On eliquis Dispo: Continue tele monitoring Case discussed with Dr. Jonnie Phan, DO - IM PGY-1 Visit type - Emergency Visit Emergency Visit: No - New Patient This patient is new to me today: Yes Date on this admission: 01/08/18 - Critical Care Critical Care patient: No
[2018-01-08] MEDS ORDERED: PT OWN MED DRAWER 7, Y5N ONE (21:08)
[2018-01-08] MEDS: ATORVASTATIN CA 40 MG TABLET (FP) PO SCH (21:46)
--- NOTE | 2018-01-09 09:16 | PN ---
Progress Note, Physician Chief Complaint: palpitations History of Present Illness: palps overnight, now resolved no cp, sob, syncope - Current Medication List Current Medications: Active Medications Apixaban (Eliquis -) 5 mg PO BID [facility] Last Admin: 01/08/18 21:46 Dose: 5 mg Aspirin (Asa -) 81 mg PO DAILY [facility] Last Admin: 01/08/18 09:34 Dose: 81 mg Atorvastatin Calcium (Lipitor -) 40 mg PO HS [facility] Last Admin: 01/08/18 21:46 Dose: 40 mg Diltiazem HCl (Cardizem Cd -) 120 mg PO DAILY [facility] Last Admin: 01/08/18 09:34 Dose: 120 mg Lisinopril (Prinivil) 20 mg PO DAILY [facility] Last Admin: 01/08/18 09:34 Dose: 20 mg Metoprolol Succinate (Toprol Xl -) 50 mg PO HS [facility] Last Admin: 01/08/18 21:46 Dose: 50 mg Metoprolol Tartrate (Lopressor Injection -) 5 mg IVPUSH Q4H PRN PRN Reason: HYPERTENSION Last Admin: 01/08/18 09:31 Dose: 5 mg - Objective Vital Signs: Vital Signs Temperature 98.5 F 01/09/18 05:47 Pulse Rate 55 L 01/09/18 05:47 Respiratory Rate 20 01/09/18 05:47 Blood Pressure 127/68 01/09/18 05:47 O2 Sat by Pulse Oximetry (%) 97 01/08/18 20:49 Constitutional: Yes: Well Nourished, No Distress, Calm Cardiovascular: Yes: Regular Rate and Rhythm, S1, S2. No: Gallop, Murmur Respiratory: Yes: Regular, CTA Bilaterally. No: Accessory Muscle Use, Rales, Wheezes Extremities: No: Cold Edema: No Neurological: Yes: Alert. No: Seizure Psychiatric: No: Agitated Labs: CBC, BMP 01/08/18 05:30 01/08/18 05:30 INR, PTT INR 1.27 (0.82-1.09) H 01/07/18 06:35 Assessment/Plan echo 12/2017: nl lv, rv tds, mild mr, mild tr, mild pr, nl rvsp echo 09/2017: nl lv/rv size/fn. 1+ mac, 1+ tr. echo 12/2015: nl lv/rv, no sig valve path tele: AFib rapid to 140s-->converted to sinus rhythm overnight, HR 50s-60s ASSESSMENT/PLAN 67 year old female with a significant PMH of HTN and CVA (X2, last in 2012), pafib, here with afib with rvr. afib - cont eliquis - b-b dose increased for rapid AF here. - converted to sinus overnight 01/08-->01/09. sinus rhythm with HR 50s-60s. continue metopr succ 50 qd htn - well controlled - cont current meds NSVT: -brief (9 beats) NSVT vs aberrant conduction here -echo with nl lvef. K/Mg good -cont bb, tele OK FOR D/C FROM CV P.O.V. OUTPT CARDIO F/U 4 WKS (continue toprol at new dose--50mg qd)
[2018-01-09 09:28] VITALS: BP 119/63; PULSE 52; TEMP 97.5
[2018-01-09] MEDS: APIXABAN 5 MG TABLET PO SCH (09:37)
[2018-01-09] MEDS: ASPIRIN 81 MG CHEWABLE TABLETS PO SCH (09:37)
[2018-01-09] MEDS: LISINOPRIL 20 MG TABLET (FP) PO SCH (09:37)
--- NOTE | 2018-01-09 11:10 | DS ---
Physical Exam: SUBJECTIVE: Patient seen and examined OBJECTIVE: Vital Signs Period Temp Pulse Resp BP Sys/Valdes Pulse Ox Last 24 Hr 97.5 F-98.6 F 52-94 18-20 103-127/58-70 97-100 PHYSICAL EXAM GENERAL: The patient is awake, alert, and fully oriented, in no acute distress. HEAD: Normal with no signs of trauma. EYES: PERRL, extraocular movements intact, sclera anicteric, conjunctiva clear. ENT: Ears normal, nares patent, oropharynx clear without exudates, moist mucous membranes. NECK: Trachea midline, full range of motion, supple. LUNGS: Breath sounds equal, clear to auscultation bilaterally, no wheezes, no crackles, no accessory muscle use. HEART: Regular rate and rhythm, S1, S2 without murmur, rub or gallop. ABDOMEN: Soft, nontender, nondistended, normoactive bowel sounds, no guarding, no rebound, no hepatosplenomegaly, no masses. EXTREMITIES: 2+ pulses, warm, well-perfused, no edema. NEUROLOGICAL: Cranial nerves II through XII grossly intact. Normal speech, gait not observed. PSYCH: Normal mood, normal affect. SKIN: Warm, dry, normal turgor, no rashes or lesions noted. LABS Laboratory Results - last 24 hr 01/08/18 05:30 Triglycerides 70 Cholesterol 146 Total LDL Cholesterol 89 HDL Cholesterol 51 HOSPITAL COURSE: Date of Admission:01/07/18 Date of Discharge: 01/09/18 <Murray Phan - Last Filed: 01/09/18 11:10> Physical Exam: Patient is comfortable with no acute distress. Converted to sinus rhythm overnight 01/08-->01/09. Now is with a HR 50s-60s. Vital Signs Temperature 97.5 F L 01/09/18 09:26 Pulse Rate 52 L 01/09/18 09:26 Respiratory Rate 18 01/09/18 09:26 Blood Pressure 119/63 01/09/18 09:26 O2 Sat by Pulse Oximetry (%) 100 01/09/18 09:00 Home Medications Medication Instructions Recorded Aspirin [ASA -] 81 mg PO DAILY 03/05/14 Apixaban [Eliquis -] 5 mg PO BID #60 tablet 10/15/17 Diltiazem Cd [Cardizem Cd -] 120 mg PO DAILY #30 cap.cd.24h 10/15/17 Lisinopril [Prinivil] 20 mg PO DAILY #30 tablet 01/09/18 Metoprolol Succinate [Toprol XL -] 50 mg PO HS #30 tab.sr.24h 01/09/18 # afib on eliquis contiue, increased the dose of BB to 50mg since patient went into rapid response rate, now is in NSR with a rate of 50's. # HTN contreolled continue current regimen. #NSVT: brief (9 beats) NSVT ; electrolytes within NL rate, Echo is NL LVEF. Follow with outpatient within 4 weeks <Jeanine Cristina - Last Filed: 01/09/18 14:19> Discharge Summary Reason For Visit: PAROXYSMAL VENTRICULAR TACHYCARDIA - Home Medications Comprehensive Discharge Medication List: Ambulatory Orders Aspirin [ASA -] 81 mg PO DAILY 03/05/14 Apixaban [Eliquis -] 5 mg PO BID #60 tablet 10/15/17 Diltiazem Cd [Cardizem Cd -] 120 mg PO DAILY #30 cap.cd.24h 10/15/17 Lisinopril [Prinivil] 20 mg PO DAILY #30 tablet 01/09/18 Metoprolol Succinate [Toprol XL -] 50 mg PO HS #30 tab.sr.24h 01/09/18 <Murray Phan - Last Filed: 01/09/18 11:10> - Home Medications Comprehensive Discharge Medication List: Ambulatory Orders Aspirin [ASA -] 81 mg PO DAILY 03/05/14 Apixaban [Eliquis -] 5 mg PO BID #60 tablet 10/15/17 Diltiazem Cd [Cardizem Cd -] 120 mg PO DAILY #30 cap.cd.24h 10/15/17 Lisinopril [Prinivil] 20 mg PO DAILY #30 tablet 01/09/18 Metoprolol Succinate [Toprol XL -] 50 mg PO HS #30 tab.sr.24h 01/09/18 <Jeanine Cristina - Last Filed: 01/09/18 14:19> Condition: Stable - Instructions Diet, Activity, Other Instructions: You were seen here for your chest pain and palpitations and were found to have an irregular rhythm. You were placed on new medication which controlled your heart rate and improved your symptoms. 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 Please refrain from drinking coffee, eating chocolate, and soda or other caffeine products as this can cause your palpitations to come back. FOLLOW-UPs: Please see Dr. Fiore, the fire control technician b, in 3 weeks. Also please see Dr. Cain about your hospital stay within 1 week. Referrals: Arpit Fiore MD [Staff Physician] - 3 Weeks Chelsie Tenorio MD [Primary Care Provider] - 1 Week Disposition: HOME
== END 2018-01-09 11:08 | disposition home or self-care (01) | DRG 310 ==
LOC: JER 05:47 → JERBED 11:46 → J4W 17:14
PROVIDERS: ADMIT Internal Medicine; ATTEND Internal Medicine
DX: I48.0 Paroxysmal atrial fibrillation (principal); I47.2 Ventricular tachycardia; I11.9 Hypertensive heart disease without heart failure; Z86.73 Personal history of transient ischemic attack (TIA), and cerebral infarction without residual deficits; Z79.01 Long term (current) use of anticoagulants; E78.5 Hyperlipidemia, unspecified
CPT/HCPCS: 36415; 71045-TC-FY; 80053; 80061; 82550; 83036; 83721; 83735; 84100; 84443; 84484; 85025; 85610; 93005; 93010; 93306-TC; 99285-25; J7030

== ENCOUNTER 2018-06-21 14:02 | Inpatient (IN) | payer OTHER ==
[2018-06-21] MEDS ORDERED: dilTIAZem HCL 125 MG/25 ML - 25 ML VIAL ONE (14:12)
--- NOTE | 2018-06-21 14:12 | PDOC ---
History of Present Illness <Estela Shirley - Last Filed: 06/21/18 15:22> - History of Present Illness Initial Comments: The patient is a 67F w/ a history of HTN, a-fib (eliquis) who presents for evaluation of intermittent, pressure-like, non-radiating chest pain since 0900 today. Patient endorses associated palpitations. Patient endorses history of ' small heart attacks' in the past but denies catheterization. Denies fevers/chill, TAYLOR, vision changes, recent illness, sick contacts, cough, shortness of breath, abdominal pain, N/V/C/D, or changes in sensation PCP: Dr. Anderson Print Binding Worker: Dr. Hull 06/21/18 14:09 <Haile Roque - Last Filed: 06/21/18 16:21> - General Stated Complaint: CHEST PAIN Time Seen by Provider: 06/21/18 14:08 Past History <Estela Shirley - Last Filed: 06/21/18 15:22> - Past Medical History Anemia: No Asthma: No Cancer: No Cardiac Disorders: No CVA: Yes (X2 2013) COPD: No CHF: No Dementia: No Diabetes: No GI Disorders: No Disorders: No HTN: Yes Hypercholesterolemia: Yes Liver Disease: No Seizures: No Thyroid Disease: No - Surgical History Abdominal Surgery: No Appendectomy: Yes Cardiac Surgery: No Cholecystectomy: No Lung Surgery: No Neurologic Surgery: No Orthopedic Surgery: Yes - Immunization History Immunization Up to Date: Yes - Suicide/Smoking/Psychosocial Hx Smoking History: Never smoked Have you smoked in the past 12 months: No Hx Alcohol Use: No Drug/Substance Use Hx: No Substance Use Type: None Hx Substance Use Treatment: No <Haile Roque - Last Filed: 06/21/18 16:21> - Past Medical History Allergies/Adverse Reactions: Allergies Allergy/AdvReac Type Severity Reaction Status Date / Time No Known Allergies Allergy Verified 10/18/17 17:51 Home Medications: Ambulatory Orders Aspirin [ASA -] 81 mg PO DAILY 03/05/14 Apixaban [Eliquis -] 5 mg PO BID #60 tablet 10/15/17 Diltiazem Cd [Cardizem Cd -] 120 mg PO DAILY #30 cap.cd.24h 10/15/17 Metoprolol Succinate [Toprol XL -] 50 mg PO HS #30 tab.sr.24h 01/09/18 Lisinopril [Prinivil] 40 mg PO DAILY 06/21/18 Review of Systems - Review of Systems Able to Perform ROS?: Yes Comments:: GENERAL/CONSTITUTIONAL: No fever or chills. No weakness HEAD, EYES, EARS, NOSE AND THROAT: No change in vision. No ear pain or discharge. No sore throat CARDIOVASCULAR: No shortness of breath GASTROINTESTINAL: No nausea, vomiting, diarrhea or constipation GENITOURINARY: No dysuria, frequency, or change in urination MUSCULOSKELETAL: No joint or muscle swelling or pain. No neck or back pain SKIN: No rash NEUROLOGIC: No headache, vertigo, loss of consciousness, or change in strength/ sensation ENDOCRINE: No increased thirst. No abnormal weight change HEMATOLOGIC/LYMPHATIC: No anemia, easy bleeding, or history of blood clots ALLERGIC/IMMUNOLOGIC: No hives or skin allergy 06/21/18 14:18 Is the patient limited Yoruba proficient: No <Haile Roque - Last Filed: 06/21/18 16:21> *Physical Exam - Vital Signs Last Vital Signs Temp Pulse Resp BP Pulse Ox 104 H 24 H 146/96 97 06/21/18 15:18 06/21/18 14:02 06/21/18 14:02 06/21/18 14:02 <Estela Shirley - Last Filed: 06/21/18 15:22> - Vital Signs Vital Signs Temp Pulse Resp BP Pulse Ox 153 H 24 H 146/96 97 06/21/18 14:02 06/21/18 14:02 06/21/18 14:02 06/21/18 14:02 06/21/18 14:34 - Physical Exam Comments: GENERAL: Awake, alert, and fully oriented, in no acute distress HEAD: No signs of trauma, normocephalic, atraumatic EYES: PERRLA, EOMI, sclera anicteric, conjunctiva clear ENT: Hearing grossly normal, nares patent, oropharynx clear without exudates. Moist mucosa LUNGS: No distress, speaks full sentences, clear to auscultation bilaterally HEART: Tachycardia, irregularly irregular rhythm, normal S1 and S2, no murmurs appreciated, peripheral pulses normal and equal bilaterally ABDOMEN: Soft, nontender, normoactive bowel sounds. No guarding, no rebound EXTREMITIES : Normal inspection, Normal range of motion, no edema. No clubbing or cyanosis NEUROLOGICAL: Cranial nerves II through XII grossly intact. Normal speech, no focal sensorimotor deficits SKIN: Warm, Dry, normal turgor, no rashes or lesions noted 06/21/18 14:19 <Haile Roque - Last Filed: 06/21/18 16:21> Moderate Sedation - Procedure Monitoring Vital Signs: Procedure Monitoring Vital Signs Temperature Pulse Rate 104 H 06/21/18 15:18 Respiratory Rate 24 H 06/21/18 14:02 Blood Pressure 146/96 06/21/18 14:02 O2 Sat by Pulse Oximetry (%) 97 06/21/18 14:02 <Estela Shirley - Last Filed: 06/21/18 15:22> ED Treatment Course - LABORATORY CBC & Chemistry Diagram: 06/21/18 14:15 06/21/18 14:15 - ADDITIONAL ORDERS Additional order review: Laboratory Results 06/21/18 14:15 Sodium 144 Potassium 4.2 Chloride 106 Carbon Dioxide 30 Anion Gap 7 L BUN 13 Creatinine 0.6 Creat Clearance w eGFR > 60 Random Glucose 111 H Calcium 9.1 Total Bilirubin 0.3 AST 19 ALT 18 Alkaline Phosphatase 76 Creatine Kinase 82 Troponin I < 0.02 Total Protein 7.5 Albumin 3.6 TSH 1.37 06/21/18 14:15 RBC 5.07 MCV 85.4 MCHC 33.2 RDW 14.7 MPV 10.1 - Medications Given in the ED: ED Medications Discontinued Medications Generic Name Dose Route Start Last Admin Trade Name Bryonq PRN Reason Stop Dose Admin Diltiazem HCl 10 mg 06/21/18 14:14 06/21/18 14:16 Cardizem Injection - IVPUSH 06/21/18 14:15 10 mg ONCE ONE Administration <Estela Shirley - Last Filed: 06/21/18 15:22> - LABORATORY CBC & Chemistry Diagram: 06/21/18 14:15 06/21/18 14:15 - RADIOLOGY Radiology Studies Ordered: Category Date Time Status CHEST X-RAY PORTABLE* [RAD] Stat Radiology 06/21/18 14:08 Ordered <Haile Roque - Last Filed: 06/21/18 16:21> Medical Decision Making - Medical Decision Making The patient is a 67F w/ a history of HTN and a-fib (eliquis) who presents w/ L chest pain since 0900 and on presentation was in a-fib w/ RVR ED Course CMP, CBC, Cardiac profile, TSH ECG CXR Diltiazem 10mg IV once for rate control 06/21/18 14:20 No leukocytosis No anemia Initial ECG significant for a-fib, rate 158, QTc 470 06/21/18 14:43 CXR w/o evidence of PNA, PNX, effusion, or widening of the mediastinum 06/21/18 14:45 Trop I neg Lytes wnl No ROSIBEL LFTs wnl Cardiology consult placed 06/21/18 15:20 Dispo: Admit 06/21/18 16:20 <Haile Roque - Last Filed: 06/21/18 16:21> *DC/Admit/Observation/Transfer - Discharge Dispostion Decision to Admit order: Yes Decision to Admit order Date/Time: 06/21/18 15:23 <Estela Shirley - Last Filed: 06/21/18 15:22> - Discharge Dispostion Decision to Admit order: Yes <Haile Roque - Last Filed: 06/21/18 16:21> Diagnosis at time of Disposition: Atrial fibrillation with RVR Atrial fibrillation Qualifiers: Atrial fibrillation type: chronic Qualified Code(s): I48.2 - Chronic atrial fibrillation - Discharge Dispostion Condition at time of disposition: Good
[2018-06-21] MEDS ORDERED: dilTIAZem HCL 50 MG/10 ML - 10 ML VIAL IVPUSH ONE ×2 (14:14→15:48)
[2018-06-21 14:25] LABS: HEMATOCRIT 43.3 % (32.4-45.2); HEMOGLOBIN 14.4 GM/dL (10.7-15.3); MCH 28.3 pg (25.7-33.7); MCHC 33.2 g/dl (32.0-36.0); MEAN CELL VOLUME 85.4 fl (80-96); MEAN PLT VOLUME 10.1 fl (7.5-11.1); PLATELET COUNT 195 K/MM3 (134-434); RBC 5.07 M/mm3 (3.60-5.2); RDW 14.7 % (11.6-15.6); WHITE BLOOD COUNT 4.9 K/mm3 (4.0-10.0)
--- NOTE | 2018-06-21 14:33 | PDOC ---
Attending Attestation - Resident Resident Name: Haile Roque - ED Attending Attestation I have performed the following: I have examined & evaluated the patient, The case was reviewed & discussed with the resident, I agree w/resident's findings & plan - HPI HPI: 06/21/18 15:21 67 YOF, with a significant past medical history of Afib on eliquis, hypertension and CVA (X2, last in 2012), who presents to the emergency department with, 5 hours of chest pain today. Patient describes her chest pain as left sided, nonradiating with associated palpitations. She denies recent fevers, chills, headache or dizziness. She denies recent nausea, vomit, diarrhea or constipation. She denies recent dysuria, frequency, urgency or hematuria. Allergies: NKDA Past surgical history: Ovarian cyst removal Social history: No reported alcohol, drug, or cigarette use. PCP: Dr. Anderson Assistant Office Manager: Dr. Hull - Physicial Exam PE: 06/21/18 14:34 NAD, well appearing, PERRL, EOMI, MMM, nl conjunctiva, anicteric; no jvd. neck supple. lungs clear, irregularly irregular, +tachycardic. abdomen soft nontender. MARTIN x4, no focal neuro deficits. No peripheral edema. normal color for ethnicity, WWP. no calf tenderness - Medical Decision Making 06/21/18 15:21 See HPI for details. Has h/o CVA, cardiac history including Afib on Eliquis, rate controlled on home diltiazem/metoprolol, prior admission for Afib RVR c/b NSVT. DDx chest pain: ACS, Arrhythmia, NSTEMI, esophageal spasm, GERD, gastritis, costochondritis, pneumonia, pleurisy, pericarditis/myocarditis. dehydration, electrolyte/metabolic derangements. Doubt PE/dissection based on history. Also on AC, eliquis, more likely cardiac. Vital signs reviewed, Afib RVR Prior notes reviewed, including admissions, discharges and consultations. laboratory results and imaging reviewed, basic labs and lytes wnl CXR_clear, normal lungs. Cardiac panel_neg trop, reassuring. EKG Afib RVR, no interval abnormalities, narrow QRS, ST and T wave segments and morphology normal. Nonspecific T wave abnormalities. ED course: initially Afib RVR, rate controlled with diltiazem, repeat EKG with more normal rate. Dr Fiore primary filing machine operator, consult as inpatient. Dispo: Admit for Afib RVR, telemetry, medical management and serial trops. Discussed results and management plan with pt and family member at bedside, agree with impression and plan Heart Score/ECG Review - ECG Impressions Normal ECG: No Tachycardia: Afib w/rapid Vent rate Comment:: 06/21/18 14:44 EKG Afib RVR, no interval abnormalities, narrow QRS, ST and T wave segments and morphology normal. Nonspecific T wave abnormalities.
[2018-06-21 15:11] LABS: ALBUMIN 3.6 g/dl (3.4-5.0); ALK PHOS 76 U/L (45-117); ANION GAP 7 MMOL/L (8-16); BILIRUBIN,TOTAL 0.3 mg/dL (0.2-1); BLOOD UREA NITROGEN 13 mg/dL (7-18); CALCIUM 9.1 mg/dL (8.5-10.1); CHLORIDE 106 mmol/L (98-107); CO2 30 mmol/L (21-32); CREATININE 0.6 mg/dL (0.55-1.3); GLUCOSE,RANDOM 111 mg/dL (74-106); POTASSIUM 4.2 mmol/L (3.5-5.1); SGOT/AST 19 U/L (15-37); SGPT/ALT 18 U/L (13-61); SODIUM 144 mmol/L (136-145); TOT PROT 7.5 g/dl (6.4-8.2)
[2018-06-21] MEDS ORDERED: dilTIAZem HCL 50 MG/10 ML - 10 ML VIAL IVPUSH PRN (15:51)
--- NOTE | 2018-06-21 15:51 | HP ---
CHIEF COMPLAINT: chest pain, left sided, non radiating PCP: Dr. Anderson Market Relationship Manager: Dr. Hull. HISTORY OF PRESENT ILLNESS: Patient is a 67 year old female with a significant past medical history of atrial fibrillation (on Eliquis), hypertension, CVA x 2. She presents to the ED today for left sided chest pain and palpitations that began at around 0900 a.m. this morning. She describes the chest pain as left sided, dull, non radiating with palpitations. Patient also had an episode of chest pain 2 weeks ago but the symptoms subsided on their own and she did not seek medical attention. Patient with similar symptoms on previous admission and was diagnosed to have new onset afib. She was started on Eliquis 5mg PO BID. Follows with Dr. Hull. Pt reports that she is compliant with her meds. She was also started on Lisinopril 20mg by her PCP on 06/05/2018 for hypertension. She denies recent fevers, chills, headache or dizziness. She denies recent nausea, vomit, diarrhea or constipation. She denies dysuria, frequency, urgency or hematuria. During lung auscultation exam, patient's heart rate became elevated in the 160s , cardizem 10mg push given with good effect. ER course was notable for: (1) trop neg x 1, will trend. ordered stat mag level , pending (2) air sampling and monitoring with atrial fib with RVR 160s (3) Recent Travel: denies PAST MEDICAL HISTORY: as noted above PAST SURGICAL HISTORY: ovarian cyst removal Social History: Smoking: none reported Alcohol: none reported Drugs: none reported Family History: Allergies No Known Allergies Allergy (Verified 10/18/17 17:51) HOME MEDICATIONS: Home Medications Medication Instructions Recorded Aspirin [ASA -] 81 mg PO DAILY 03/05/14 Apixaban [Eliquis -] 5 mg PO BID #60 tablet 10/15/17 Diltiazem Cd [Cardizem Cd -] 120 mg PO DAILY #30 cap.cd.24h 10/15/17 Metoprolol Succinate [Toprol XL -] 50 mg PO HS #30 tab.sr.24h 01/09/18 Lisinopril [Prinivil] 40 mg PO DAILY 06/21/18 PHYSICAL EXAMINATION Vital Signs - 24 hr 06/21/18 06/21/18 14:02 15:18 Pulse Rate 153 H Pulse Rate [ 104 H Right Radial] Respiratory 24 H Rate Blood Pressure 146/96 O2 Sat by Pulse 97 Oximetry (%) GENERAL: Awake, alert, and fully oriented, in no acute distress, states she still feels some palpitations HEAD: Normal with no signs of trauma. EYES: Pupils equal, round and reactive to light, extraocular movements intact, sclera anicteric, conjunctiva clear. No lid lag. EARS, NOSE, THROAT: Ears normal, nares patent, oropharynx clear without exudates. Moist mucous membranes. NECK: Normal range of motion, supple without lymphadenopathy, JVD, or masses. LUNGS: Breath sounds equal, clear to auscultation bilaterally. No wheezes HEART: atrial fibrillation 160s with RVR during exam. ABDOMEN: Soft, nontender, not distended, normoactive bowel sounds, no guarding, no rebound, no masses. No hepatomegaly or splenomegaly. MUSCULOSKELETAL: Normal range of motion at all joints. No bony deformities or tenderness. No CVA tenderness. UPPER EXTREMITIES: No peripheral edema. LOWER EXTREMITIES: No peripheral edema. NEUROLOGICAL: Normal speech. gait not observed PSYCHIATRIC: Cooperative. Good eye contact. Appropriate mood and affect. Laboratory Results - last 24 hr 06/21/18 06/21/18 14:15 14:15 WBC 4.9 RBC 5.07 Hgb 14.4 Hct 43.3 MCV 85.4 MCH 28.3 MCHC 33.2 RDW 14.7 Plt Count 195 MPV 10.1 Sodium 144 Potassium 4.2 Chloride 106 Carbon Dioxide 30 Anion Gap 7 L BUN 13 Creatinine 0.6 Creat Clearance w eGFR > 60 Random Glucose 111 H Calcium 9.1 Total Bilirubin 0.3 AST 19 ALT 18 Alkaline Phosphatase 76 Creatine Kinase 82 Troponin I < 0.02 Total Protein 7.5 Albumin 3.6 TSH 1.37 ASSESSMENT/PLAN: Patient is a 67 year old female with a significant past medical history of atrial fibrillation (on Eliquis), hypertension, CVA x 2. She presents to the ED today for left sided chest pain and palpitations that began at around 0900 a.m. this morning. She describes the chest pain as left sided, dull, non radiating with palpitations. Patient also had an episode of chest pain 2 weeks ago but the symptoms subsided on their own and she did not seek medical attention. During lung auscultation exam, patient's heart rate became elevated in the 160s , cardizem 10mg push given with good effect. Cardiology: Chest pain Atrial fibrillation with RVR Patient on cardizem cd 120mg daily, took her home dose this morning. On Metoprol 50mg xl @ hs and Eliquis 5mg bid. Given Cardizem 10 mg pushes x 2 in the ED, heart rate now afib 80s. - Monitor on tele - check mag level - echo ordered - trend troponins - hmga1c, tsh, lipid panel ordered - cardizem 10mg pushes for tachycardia cardiology consulted Hypertension. monitor BP. fen no signs of dehydration monitor electrolytes low salt diet prophy on eliquis 5mg bid disposition: full code Visit type - Emergency Visit Emergency Visit: Yes ED Registration Date: 06/21/18 Care time: The patient presented to the Emergency Department on the above date and was hospitalized for further evaluation of their emergent condition. - New Patient This patient is new to me today: Yes Date on this admission: 06/21/18 - Critical Care Critical Care patient: No
[2018-06-21 20:46] LABS: MAGNESIUM 1.7 mg/dL (1.8-2.4)
[2018-06-21] MEDS ORDERED: MAGNESIUM SULF 50% (8.12 MEQ/2 ML-1 GM VIAL) IVPB ONE (21:20)
[2018-06-21] MEDS ORDERED: MAGNESIUM 1GM/D5W - 2 GM/200 ML IVPB IVPB ONE (21:50)
[2018-06-21] MEDS: APIXABAN 5 MG TABLET PO SCH (23:12)
[2018-06-21 23:27] VITALS: BMI 26.9
[2018-06-22 01:30] LABS: URINE APPEARANCE SLCLOUDY; URINE BILIRUBIN NEGATIVE (<2.0 mg/dL); URINE COLOR YELLOW; URINE GLUCOSE (UA) NEGATIVE (NEGATIVE); URINE KETONE NEGATIVE (NEGATIVE); URINE LEUK ESTERASE 1+ (NEGATIVE); URINE NITRITE NEGATIVE (NEGATIVE); URINE PROTEIN NEGATIVE (NEGATIVE); URINE UROBILINOGEN NEGATIVE mg/dL (0.2-1.0)
[2018-06-22 01:55] LABS: EPI CELLS RARE /HPF (FEW); URINE BACTERIA RARE /hpf (NONE SEEN); URINE MUCUS FEW
--- NOTE | 2018-06-22 09:16 | CON.CARD ---
Consult Consult Specialty:: cardio - History of Present Illness Chief Complaint: cp History of Present Illness: 67 F here with cp and palpitations. in ER pt in rapid AFib HR 150s, normotensive. HR slowed down with tx in ER. converted to sinus on floor. says cp was upper sternal location, similar to prior AF visit 01/05. all resolved now. 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) Cardio/Vascular: Yes: HTN ...: No - Alcohol/Substance Use Hx Alcohol Use: No History of Substance Use: reports: None - Smoking History Smoking history: Former smoker Have you smoked in the past 12 months: No Aproximately how many cigarettes per day: 10 If you are a former smoker, when did you quit?: 1997 - Social History ADL: Independent Occupation: retired Home Medications - Allergies Allergies/Adverse Reactions: Allergies Allergy/AdvReac Type Severity Reaction Status Date / Time No Known Allergies Allergy Verified 10/18/17 17:51 - Home Medications Home Medications: Ambulatory Orders Diltiazem Cd [Cardizem Cd -] 120 mg PO DAILY #30 cap.cd.24h 10/15/17 Apixaban [Eliquis] 5 mg PO BID 06/21/18 Aspirin [Aspirin EC] 81 mg PO DAILY 06/21/18 Lisinopril [Prinivil] 40 mg PO DAILY 06/21/18 Metoprolol Succinate [Toprol Xl -] 50 mg PO DAILY 06/21/18 Family Disease History - Family Disease History Family Disease History: Other: Mother (HTN) Review of Systems - Review of Systems Constitutional: denies: Chills, Fever Eyes: denies: Eye Pain HENT: denies: Nasal Congestion Neck: denies: Stiffness Cardiovascular: reports: Palpitations. denies: Edema Respiratory: denies: Orthopnea, PND Gastrointestinal: denies: Diarrhea, Rectal Bleeding Genitourinary: denies: Burning, Hematuria Musculoskeletal: denies: Muscle Pain Integumentary: denies: Rash Neurological: denies: Numbness, Seizure, Syncope Endocrine: denies: Excessive Sweating Hematology/Lymphatic: denies: Excessive Bleeding Vital Signs: Vital Signs Temperature 97.9 F 06/22/18 06:00 Pulse Rate 90 06/22/18 06:00 Respiratory Rate 18 06/22/18 06:00 Blood Pressure 155/73 06/22/18 06:00 O2 Sat by Pulse Oximetry (%) 97 06/21/18 23:33 Constitutional: Yes: Well Nourished, No Distress Eyes: No: Sclera Icterus HENT: No: Nasal Congestion Neck: No: Decreased ROM Respiratory: Yes: CTA Bilaterally. No: Accessory Muscle Use Gastrointestinal: Yes: Normal Bowel Sounds. No: Distention, Hepatomegaly, Palpable Mass, Tenderness Cardiovascular: Yes: Regular Rate and Rhythm JVD: No Carotid Bruit: No PMI: Non-Displaced Heart Sounds: Yes: S1, S2. No: Gallop Murmur: No: Systolic Murmur, Diastolic Murmur Musculoskeletal: Yes: Other (No kyphosis) Extremities: No: Cool, Cyanosis Edema: No Peripheral Pulses: 2+ Left Carotid, 2+ Right Carotid, 2+ Left Doralis Pedis, 2+ Right Dorsalis Pedis Integumentary: No: Jaundice Neurological: Yes: Alert, Oriented (x3) Psychiatric: No: Agitated - Other Data Labs, Other Data: CBC, BMP 06/21/18 14:15 06/21/18 14:15 Troponin, BNP 06/21/18 06/21/18 06/22/18 14:15 20:12 02:00 Troponin I < 0.02 0.03 0.04 Troponin, BNP 06/21/18 06/21/18 06/22/18 14:15 20:12 02:00 Troponin I < 0.02 0.03 0.04 Laboratory Tests 06/21/18 06/21/18 06/21/18 14:15 14:15 20:12 WBC 4.9 Hgb 14.4 Plt Count 195 Sodium 144 Potassium 4.2 Carbon Dioxide 30 BUN 13 Creatinine 0.6 AST 19 ALT 18 Troponin I < 0.02 0.03 TSH 1.37 06/22/18 02:00 WBC Hgb Plt Count Sodium Potassium Carbon Dioxide BUN Creatinine AST ALT Troponin I 0.04 TSH Assessment/Plan EKG 06/21, #1: afib, HR 150s.nonsp ST-Ts, possible LVH--no signif change vs prior 01/05 EKG #2: no signif change, HR slower EKG #3: NSR, LVH with assctd repol abn CXR: clear lungs/pleura Echo 12/2017: nl lv, rv tds, mild mr, mild tr, mild pr, nl rvsp tele: sinus 50s bpm ASSESSMENT/PLAN paroxysmal afib - symptomatic rapid AF 01/05--metoprolol incr'd to 50 qd - note: home regimen metoprolol 50 qhs, diltiazem CD 120 qam - now recurrence, highly symptomatic during. - try increase metoprolol to 75 qhs. cont dilt 120--watch for symptomatic bradycardia. - monitor tele overnight to confirm no pathological jennifer on this regimen. - if AF recurs and sinus HR too slow to add AVN blockers, will consider EP eval : flecainide vs ablation - CHADS VASC 5 (prior CVA): cont eliquis chest pain: - sx's during rapid AF. similar to prior rapid AF presentation - no ischemic ecg changes, trop neg x 3 - mibi no ischemia 2013 for cp sx's--? if same. - likely all rate-related. doubt underlying fixed, chronic, STABLE cad--will plan outpt eval (? repeat stress test) with dr mckoy, routinely htn - well controlled for the most part here - cont home meds
[2018-06-22 09:49] LABS: BASO % 0.8 % (0-2.0); EOS % 0.5 % (0-4.5); HEMATOCRIT 40.6 % (32.4-45.2); HEMOGLOBIN 13.7 GM/dL (10.7-15.3); LYMPH % 29.3 % (8-40); MCH 28.9 pg (25.7-33.7); MCHC 33.7 g/dl (32.0-36.0); MEAN CELL VOLUME 85.9 fl (80-96); MONO % 5.6 % (3.8-10.2); NEUT % 63.8 % (42.8-82.8); PLATELET COUNT 174 K/MM3 (134-434); RBC 4.73 M/mm3 (3.60-5.2); RDW 14.8 % (11.6-15.6)
[2018-06-22] MEDS: APIXABAN 5 MG TABLET PO SCH ×2 (10:00→21:29)
[2018-06-22] MEDS: ASPIRIN 81 MG CHEWABLE TABLETS PO SCH (10:00)
[2018-06-22 10:38] LABS: ALBUMIN 3.4 g/dl (3.4-5.0); ALK PHOS 66 U/L (45-117); ANION GAP 9 MMOL/L (8-16); BILIRUBIN,TOTAL 0.5 mg/dL (0.2-1); BLOOD UREA NITROGEN 19 mg/dL (7-18); CALCIUM 8.4 mg/dL (8.5-10.1); CHLORIDE 106 mmol/L (98-107); CHOLESTEROL 151 mg/dL (50-200); CO2 25 mmol/L (21-32); CREATININE 0.7 mg/dL (0.55-1.3); GLUCOSE,RANDOM 115 mg/dL (74-106); HDL CHOLESTEROL 62 mg/dL (40-60); MAGNESIUM 2.2 mg/dL (1.8-2.4); SGOT/AST 16 U/L (15-37); SGPT/ALT 16 U/L (13-61); SODIUM 140 mmol/L (136-145); TOT PROT 6.8 g/dl (6.4-8.2); TRIGLYCERIDES 52 mg/dL (0-150)
--- NOTE | 2018-06-22 11:11 | EKG ---
Test Reason : Blood Pressure : / mmHG Vent. Rate : 069 BPM Atrial Rate : 069 BPM P-R Int : 150 ms QRS Dur : 104 ms QT Int : 378 ms P-R-T Axes : 041 003 -23 degrees QTc Int : 405 ms SINUS RHYTHM WITH OCCASIONAL PREMATURE VENTRICULAR COMPLEXES NONSPECIFIC T WAVE ABNORMALITY ABNORMAL ECG WHEN COMPARED WITH ECG OF 21-JUN-2018 14:22, SINUS RHYTHM HAS REPLACED ATRIAL FIBRILLATION VENT. RATE HAS DECREASED PREMATURE VENTRICULAR COMPLEXES Confirmed by MARTHA FRENCH, JUAN DIEGO ([id number]) on 06/22/2018 11:11:14 AM Referred By: Confirmed By:JUAN DIEGO THOMAS MD
--- NOTE | 2018-06-22 11:17 | EKG ---
Test Reason : Blood Pressure : / mmHG Vent. Rate : 090 BPM Atrial Rate : 258 BPM P-R Int : 000 ms QRS Dur : 102 ms QT Int : 336 ms P-R-T Axes : 000 -04 074 degrees QTc Int : 411 ms ATRIAL FIBRILLATION MINIMAL VOLTAGE CRITERIA FOR LVH, MAY BE NORMAL VARIANT NONSPECIFIC T WAVE ABNORMALITY ABNORMAL ECG WHEN COMPARED WITH ECG OF 21-JUN-2018 14:12, VENT. RATE HAS DECREASED BY 68 BPM Confirmed by MARTHA FRENCH, JUAN DIEGO ([id number]) on 06/22/2018 11:17:08 AM Referred By: Confirmed By:JUAN DIEGO THOMAS MD
--- NOTE | 2018-06-22 11:17 | EKG ---
Test Reason : Blood Pressure : / mmHG Vent. Rate : 158 BPM Atrial Rate : 163 BPM P-R Int : 000 ms QRS Dur : 096 ms QT Int : 290 ms P-R-T Axes : 000 -05 140 degrees QTc Int : 470 ms ATRIAL FIBRILLATION WITH RAPID VENTRICULAR RESPONSE ABNORMAL ECG WHEN COMPARED WITH ECG OF 07-JAN-2018 08:43, VENT. RATE HAS INCREASED BY 55 BPM Confirmed by JUAN DIEGO THOMAS MD ([id number]) on 06/22/2018 11:17:28 AM Referred By: Confirmed By:JUAN DIEGO THOMAS MD
--- NOTE | 2018-06-22 11:37 | ECHO ---
Name: UZLLY INFANTE Exam:Adult Echocardiogram Study Date: 06/22/2018 08:16 AM Age: 67 yrs Reason For Study: A-Fib Height: 63 in Weight: 169 lb BSA: 1.8 m2 MMode/2D Measurements & Calculations IVSd: 1.3 cm Ao root diam: 3.2 cm LVIDd: 4.3 cm LA dimension: 3.1 cm LVIDs: 2.6 cm LVPWd: 1.1 cm EDV(Teich): 85.3 ml LAV (MOD-bp): 56.5 ml ESV(Teich): 24.8 ml Doppler Measurements & Calculations AI P1/2t: 1677 msec AI max jeromy: 281.0 cm/sec AI max P.6 mmHg AI dec slope: 49.1 cm/sec2 TR max jeromy: 224.5 cm/sec Med Peak E' Jeromy: 6.2 cm/sec TR max P.2 mmHg Lat Peak E' Jeromy: 5.9 cm/sec PI Vmax: 167.0 cm/sec Procedure A complete two-dimensional transthoracic echocardiogram was performed (2D, M-mode, Doppler and color flow Doppler). Left Ventricle The left ventricle is normal in size. There is mild concentric left ventricular hypertrophy. Left walter tricular systolic function is normal. Ejection Fraction = 65-70%. No regional wall motion abnormalities noted. Right Ventricle The right ventricle is normal size. The right ventricular systolic function is normal. Atria The left atrial size is normal. LA volume index is 31 ml/m2. Right atrial size is normal. Mitral Valve The mitral valve is normal in structure and function. There is trace to mild mitral regurgitation. Tricuspid Valve The tricuspid valve is normal in structure and function. There is mild tricuspid regurgitation. Pulmo nary artery systolic pressure is at least 27 mmHg assuming RA pressure of 3 mmHg (normal IVC and >50% alok apse). Aortic Valve The aortic valve is normal in structure and function. Trace to mild aortic regurgitation. Pulmonic Valve The pulmonic valve is not well visualized. Mild pulmonic valvular regurgitation. Great Vessels The aortic root is normal size. Pericardium/Pleura There is no pericardial effusion. Interpretation Summary The left ventricle is normal in size. There is mild concentric left ventricular hypertrophy. Left ventricular systolic function is normal. No regional wall motion abnormalities noted. Ejection Fraction = 65-70%. The right ventricular systolic function is normal. The left atrial size is normal. Right atrial size is normal. There is trace to mild mitral regurgitation. There is mild tricuspid regurgitation. Pulmonary artery systolic pressure is at least 27 mmHg assuming RA pressure of 3 mmHg (normal IVC and >50% collapse) Trace to mild aortic regurgitation. Mild pulmonic valvular regurgitation. There is no pericardial effusion. When compared to study dated 01/07/18, likely no significant changes Gianluca Duval MD 06/22/2018 11:36 AM
[2018-06-22] MEDS: LISINOPRIL 20 MG TABLET (FP) PO SCH (12:49)
--- NOTE | 2018-06-22 22:17 | PN ---
Physical Exam: SUBJECTIVE: Patient seen and examined. no chest pain, not short of breath. had one episode of shortness of breath when ambulating to bathroom. OBJECTIVE: Metoprolol increased. monitor on tele overnight. discharge likely tomorrow once cleared by cardiology Vital Signs Period Temp Pulse Resp BP Sys/Valdes Pulse Ox Last 24 Hr 97.7 F-98.0 F 46-90 18-20 113-155/57-75 97-100 GENERAL: Awake, alert, and fully oriented, in no acute distress, states she still feels some palpitations with ambulation HEAD: Normal with no signs of trauma. EYES: Pupils equal, round and reactive to light, extraocular movements intact, sclera anicteric, conjunctiva clear. No lid lag. EARS, NOSE, THROAT: Ears normal, nares patent, oropharynx clear without exudates. Moist mucous membranes. NECK: Normal range of motion, supple without lymphadenopathy, JVD, or masses. LUNGS: Breath sounds equal, clear to auscultation bilaterally. No wheezes HEART: atrial fibrillation controlled ABDOMEN: Soft, nontender, not distended, normoactive bowel sounds, no guarding, no rebound, no masses. No hepatomegaly or splenomegaly. MUSCULOSKELETAL: Normal range of motion at all joints. No bony deformities or tenderness. No CVA tenderness. UPPER EXTREMITIES: No peripheral edema. LOWER EXTREMITIES: No peripheral edema. NEUROLOGICAL: Normal speech. gait not observed PSYCHIATRIC: Cooperative. Good eye contact. Appropriate mood and affect. Laboratory Results - last 24 hr 06/22/18 06/22/18 06/22/18 00:05 02:00 09:15 WBC RBC Hgb Hct MCV MCH MCHC RDW Plt Count MPV Absolute Neuts (auto) Neutrophils % Lymphocytes % Monocytes % Eosinophils % Basophils % Nucleated RBC % Sodium Potassium Chloride Carbon Dioxide Anion Gap BUN Creatinine Creat Clearance w eGFR Random Glucose Hemoglobin A1c % 5.6 Calcium Magnesium Total Bilirubin AST ALT Alkaline Phosphatase Troponin I 0.04 Total Protein Albumin Triglycerides Cholesterol Total LDL Cholesterol HDL Cholesterol Urine Color Yellow Urine Appearance Slcloudy Urine pH 6.0 Ur Specific Mcclure 1.023 Urine Protein Negative Urine Glucose (UA) Negative Urine Ketones Negative Urine Blood Negative Urine Nitrite Negative Urine Bilirubin Negative Urine Urobilinogen Negative Ur Leukocyte Esterase 1+ H Urine WBC (Auto) 12 Urine RBC (Auto) 8 Ur Epithelial Cells Rare Urine Bacteria Rare Urine Mucus Few 06/22/18 06/22/18 09:15 09:15 WBC 5.0 RBC 4.73 Hgb 13.7 Hct 40.6 MCV 85.9 MCH 28.9 MCHC 33.7 RDW 14.8 Plt Count 174 MPV 10.0 Absolute Neuts (auto) 3.2 Neutrophils % 63.8 D Lymphocytes % 29.3 D Monocytes % 5.6 Eosinophils % 0.5 Basophils % 0.8 Nucleated RBC % 0 Sodium 140 Potassium 4.0 Chloride 106 Carbon Dioxide 25 Anion Gap 9 BUN 19 H Creatinine 0.7 Creat Clearance w eGFR > 60 Random Glucose 115 H Hemoglobin A1c % Calcium 8.4 L Magnesium 2.2 Total Bilirubin 0.5 AST 16 ALT 16 Alkaline Phosphatase 66 Troponin I Total Protein 6.8 Albumin 3.4 Triglycerides 52 Cholesterol 151 Total LDL Cholesterol 76 HDL Cholesterol 62 H Urine Color Urine Appearance Urine pH Ur Specific Mcclure Urine Protein Urine Glucose (UA) Urine Ketones Urine Blood Urine Nitrite Urine Bilirubin Urine Urobilinogen Ur Leukocyte Esterase Urine WBC (Auto) Urine RBC (Auto) Ur Epithelial Cells Urine Bacteria Urine Mucus Active Medications Generic Name Dose Route Start Last Admin Trade Name Freq PRN Reason Stop Dose Admin Apixaban 5 mg 06/21/18 22:00 06/22/18 21:29 Eliquis - PO 5 mg BID RANDALL Administration Aspirin 81 mg 06/22/18 10:00 06/22/18 10:00 Asa - PO 81 mg DAILY RANDALL Administration Diltiazem HCl 10 mg 06/21/18 15:51 Cardizem Injection - IVPUSH Q4H PRN TACHYCARDIA Diltiazem HCl 120 mg 06/22/18 11:38 Cardizem Cd - PO DAILY [facility] Lisinopril 40 mg 06/22/18 10:00 06/22/18 12:49 Prinivil PO 40 mg DAILY RANDALL Administration Metoprolol Succinate 75 mg 06/22/18 11:37 06/22/18 21:29 Toprol Xl - PO Not Given HS [facility] ASSESSMENT/PLAN: Patient is a 67 year old female with a significant past medical history of atrial fibrillation (on Eliquis), hypertension and CVA x 2. She presents to the ED today for left sided chest pain and palpitations and chest pain. Patient also had an episode of chest pain 2 weeks ago but the symptoms subsided on their own and she did not seek medical attention. Cardiology: Chest pain, resolved Atrial fibrillation with RVR, afib now controlled. Given Cardizem 10mg pushes in the ED. Continue Cardizem 120mg PO daily, Metoprolol increased from 50mg to 75mg xl. On Eliquis 5mg bid. Patient reports improvement of her symptoms, but had an episode of shortness of breath with ambulation this a.m. Continue to monitor on tele. Monitor electrolytes Troponins negative hmga1c 5.6, tsh wnl, lipid panel noted. Cardiology consulted and following. Hypertension. stable. fen no signs of dehydration monitor electrolytes low salt diet prophy on eliquis 5mg bid disposition: full code Visit type - Emergency Visit Emergency Visit: Yes ED Registration Date: 06/21/18 Care time: The patient presented to the Emergency Department on the above date and was hospitalized for further evaluation of their emergent condition. - New Patient This patient is new to me today: No - Critical Care Critical Care patient: No
[2018-06-23 06:46] LABS: BASO % 0.7 % (0-2.0); EOS % 0.8 % (0-4.5); HEMATOCRIT 39.5 % (32.4-45.2); HEMOGLOBIN 12.4 GM/dL (10.7-15.3); LYMPH % 39.6 % (8-40); MCH 27.2 pg (25.7-33.7); MCHC 31.4 g/dl (32.0-36.0); MEAN CELL VOLUME 86.6 fl (80-96); MEAN PLT VOLUME 9.9 fl (7.5-11.1); MONO % 7.7 % (3.8-10.2); NEUT % 51.2 % (42.8-82.8); PLATELET COUNT 149 K/MM3 (134-434); RBC 4.56 M/mm3 (3.60-5.2); RDW 14.6 % (11.6-15.6); WHITE BLOOD COUNT 4.6 K/mm3 (4.0-10.0)
[2018-06-23 07:19] LABS: ALBUMIN 2.9 g/dl (3.4-5.0); ALK PHOS 60 U/L (45-117); ANION GAP 6 MMOL/L (8-16); BILIRUBIN,TOTAL 0.4 mg/dL (0.2-1); BLOOD UREA NITROGEN 21 mg/dL (7-18); CALCIUM 8.2 mg/dL (8.5-10.1); CHLORIDE 108 mmol/L (98-107); CO2 27 mmol/L (21-32); CREATININE 0.6 mg/dL (0.55-1.3); GLUCOSE,RANDOM 78 mg/dL (74-106); SGOT/AST 17 U/L (15-37); SGPT/ALT 15 U/L (13-61); SODIUM 141 mmol/L (136-145)
[2018-06-23 08:50] VITALS: BP 138/71; PULSE 51; TEMP 97.7
[2018-06-23] MEDS: APIXABAN 5 MG TABLET PO SCH (09:23)
[2018-06-23] MEDS: LISINOPRIL 20 MG TABLET (FP) PO SCH (09:23)
[2018-06-23] MEDS: ASPIRIN 81 MG CHEWABLE TABLETS PO SCH (09:23)
--- NOTE | 2018-06-23 09:45 | PN ---
Progress Note (short form) - Note Progress Note: Consult Consult Specialty:: cardio - History of Present Illness Chief Complaint: cp History of Present Illness: no chest pain, palps, dizziness, lightheadedness Current Medications Apixaban (Eliquis -) 5 mg PO BID [facility] Last Admin: 06/23/18 09:23 Dose: 5 mg Aspirin (Asa -) 81 mg PO DAILY [facility] Last Admin: 06/23/18 09:23 Dose: 81 mg Diltiazem HCl (Cardizem Injection -) 10 mg IVPUSH Q4H PRN PRN Reason: TACHYCARDIA Diltiazem HCl (Cardizem Cd -) 120 mg PO DAILY [facility] Last Admin: 06/23/18 09:23 Dose: 120 mg Lisinopril (Prinivil) 40 mg PO DAILY [facility] Last Admin: 06/23/18 09:23 Dose: 40 mg Metoprolol Succinate (Toprol Xl -) 75 mg PO HS [facility] Last Admin: 06/22/18 21:29 Dose: Not Given Vital Signs Period Temp Pulse Resp BP Sys/Valdes Pulse Ox Last 24 Hr 97.7 F-98.0 F 48-62 18-60 129-169/63-77 97-97 Constitutional: Yes: Well Nourished, No Distress Eyes: No: Sclera Icterus HENT: No: Nasal Congestion Neck: No: Decreased ROM Respiratory: Yes: CTA Bilaterally. No: Accessory Muscle Use Gastrointestinal: Yes: Normal Bowel Sounds. No: Distention, Hepatomegaly, Palpable Mass, Tenderness Cardiovascular: Yes: Regular Rate and Rhythm JVD: No Carotid Bruit: No PMI: Non-Displaced Heart Sounds: Yes: S1, S2. No: Gallop Murmur: No: Systolic Murmur, Diastolic Murmur Musculoskeletal: Yes: Other (No kyphosis) Extremities: No: Cool, Cyanosis Edema: No Peripheral Pulses: 2+ Left Carotid, 2+ Right Carotid, 2+ Left Doralis Pedis, 2+ Right Dorsalis Pedis Integumentary: No: Jaundice Neurological: Yes: Alert, Oriented (x3) Psychiatric: No: Agitated Assessment/Plan EKG 06/21, #1: afib, HR 150s.nonsp ST-Ts, possible LVH--no signif change vs prior 01/05 EKG #2: no signif change, HR slower EKG #3: NSR, LVH with assctd repol abn CXR: clear lungs/pleura Echo 12/2017: nl lv, rv tds, mild mr, mild tr, mild pr, nl rvsp Echo 06/2018 LV nl size/function, mild conc LVH, tr to mild MR, mild TR, PASP at least 27 mmHg, tr to mild AR tele: sinus 50s-60s bpm, overnight episodes of sinus bradycardia to 40s ASSESSMENT/PLAN paroxysmal afib - symptomatic rapid AF 01/05--metoprolol incr'd to 50 qd - home regimen metoprolol 50 qhs, diltiazem CD 120 qam- now recurrence, highly symptomatic during. - metoprolol increased to 75 mg HS - rate 40s overnight, however stable during the day with appropriate chronotropic response noted on tele, no reoccurence of afib - CHADS VASC 5 (prior CVA): cont eliquis chest pain: - sx's during rapid AF. similar to prior rapid AF presentation - no ischemic ecg changes, trop neg x 3 - mibi no ischemia 2013 for cp sx's--? if same. - likely all rate-related. doubt underlying fixed, chronic, STABLE cad--will plan outpt eval (? repeat stress test) with dr mckoy, routinely htn - well controlled for the most part here - cont home meds
--- NOTE | 2018-06-23 10:03 | DS ---
Physical Exam: SUBJECTIVE: Patient seen and examined; discussed case with Dr. Page. She is doing well overnight without any dizziness, SOB, etc. HR low 50s and high 40s overnight when sleeping with normal BP and asymptomatic. No other issues noted. CP free. She will be sent home on Metoprolol Tartrate 75mg PO BID and Dilt CR 120. She should followup with cardiology in 5-7 days and PCP 3-5 days. She should return to the ER should she become symptomatic and will be counseled in her [place] language prior to DC. Echo reviewed from 12/2017. No new issues. OBJECTIVE: Vital Signs Period Temp Pulse Resp BP Sys/Valdes Pulse Ox Last 24 Hr 97.7 F-98.0 F 48-62 18-60 129-169/64-77 97-97 PHYSICAL EXAM GENERAL: The patient is awake, alert, and fully oriented, in no acute distress. HEAD: Normal with no signs of trauma. EYES: PERRL, extraocular movements intact, sclera anicteric ENT: Ears normal, nares patent, oropharynx clear without exudates NECK: Trachea midline, full range of motion, supple. LUNGS: Breath sounds equal, clear to auscultation bilaterally, sym exp HEART: Regular rate and rhythm, S1, S2 without murmur, rub or gallop. ABDOMEN: Soft, nontender, nondistended NEUROLOGICAL: Cranial nerves II through XII grossly intact PSYCH: Normal mood, normal affect. SKIN: Warm, dry, normal turgor, no rashes or lesions noted. LABS Laboratory Results - last 24 hr 06/22/18 06/22/18 06/23/18 09:15 09:15 06:00 WBC 4.6 RBC 4.56 Hgb 12.4 Hct 39.5 MCV 86.6 MCH 27.2 MCHC 31.4 L RDW 14.6 Plt Count 149 MPV 9.9 Absolute Neuts (auto) 2.3 Neutrophils % 51.2 Lymphocytes % 39.6 D Monocytes % 7.7 Eosinophils % 0.8 Basophils % 0.7 Nucleated RBC % 0 Sodium 140 Potassium 4.0 Chloride 106 Carbon Dioxide 25 Anion Gap 9 BUN 19 H Creatinine 0.7 Creat Clearance w eGFR > 60 Random Glucose 115 H Hemoglobin A1c % 5.6 Calcium 8.4 L Magnesium 2.2 Total Bilirubin 0.5 AST 16 ALT 16 Alkaline Phosphatase 66 Total Protein 6.8 Albumin 3.4 Triglycerides 52 Cholesterol 151 Total LDL Cholesterol 76 HDL Cholesterol 62 H 06/23/18 06:00 WBC RBC Hgb Hct MCV MCH MCHC RDW Plt Count MPV Absolute Neuts (auto) Neutrophils % Lymphocytes % Monocytes % Eosinophils % Basophils % Nucleated RBC % Sodium 141 Potassium 4.0 Chloride 108 H Carbon Dioxide 27 Anion Gap 6 L BUN 21 H Creatinine 0.6 Creat Clearance w eGFR > 60 Random Glucose 78 Hemoglobin A1c % Calcium 8.2 L Magnesium 2.0 Total Bilirubin 0.4 AST 17 ALT 15 Alkaline Phosphatase 60 Total Protein 6.0 L Albumin 2.9 L Triglycerides Cholesterol Total LDL Cholesterol HDL Cholesterol HOSPITAL COURSE: Date of Admission:06/21/18 Date of Discharge: 06/23/18 1) Chest Pain -Patient had CP that is now resolved; was likely rate related. Negative troponin, negative Mibi 2013. Seen by CV. Recommended outpatient followup with Dr. Hull routinely. 2) Paroxysmal Atrial Fibrillation with RVR on Eliquis -Presented with AFib with RVR to 150s; given dilt pushes and MS 50 qHS to 75 qHS. Continued on Dilt CR 120. Entered NSR. Overnight high 40s-50s with normal BP 140s/60s. Spoke with Dr. Page. Will discharge home on this reimine with followup with CV within the week and with PCP in the next 2-5 days. -CV5 so continue eliquis -Continue MS 75 qHS, Diltiazem 120 CR -If she has recurring Afib with NSR too low to control with av javid blockers consider referral to ER for flecainide vs. ablation -High 40s seen overnight likely 2/2 sleeping. Was asx without any dizziness, hypotension, etc. Does have chronotropic response to palpation from sitting to standing. Discussed with CV and will be OK for OP followup. 3) HTN -Acceptable inpatient control with PO Lisinopril 40mg PO QD; consider adding Amlodipine as OP should further BP control be needed. Full Code Followups: -Dr Hull Cardiology within 1 week -PCP 3-5 days Minutes to complete discharge: 45 Discharge Summary Reason For Visit: A FIB W/RVR,R\O ACS Current Active Problems Atrial fibrillation with RVR (Acute) Atrial fibrillation (Chronic) Condition: Good - Instructions Diet, Activity, Other Instructions: Heart Healthy Diet with low sodium Resume home activity Return to the ER if any dizziness, chest pain, shortness of breath, syncope Followup with: -Dr. Hull within 1 week -PCP 3-5 days Referrals: Chelsie Tenorio MD [Primary Care Provider] - Disposition: HOME - Home Medications Comprehensive Discharge Medication List: Ambulatory Orders Diltiazem Cd [Cardizem Cd -] 120 mg PO DAILY #30 cap.cd.24h 10/15/17 Apixaban [Eliquis] 5 mg PO BID 06/21/18 Aspirin [Aspirin EC] 81 mg PO DAILY 06/21/18 Lisinopril [Prinivil] 40 mg PO DAILY 06/21/18 Metoprolol Succinate [Toprol Xl -] 75 mg PO DAILY 06/21/18 This patient is new to me today: Yes Date on this admission: 06/23/18 Emergency Visit: No Critical Care patient: No - Discharge Referral Referred to [facility] No
== END 2018-06-23 14:26 | disposition home or self-care (01) | DRG 310 ==
LOC: JER 14:02 → JERBED 14:40 → J4S 23:10
PROVIDERS: ADMIT Internal Medicine; ATTEND Internal Medicine
DX: I48.0 Paroxysmal atrial fibrillation (principal); I10 Essential (primary) hypertension; Z79.01 Long term (current) use of anticoagulants; Z86.73 Personal history of transient ischemic attack (TIA), and cerebral infarction without residual deficits; Z87.891 Personal history of nicotine dependence; R07.9 Chest pain, unspecified
CPT/HCPCS: 36415; 71045-TC-FY; 80053; 80061; 81003; 81015; 82550; 83036; 83721; 83735; 84443; 84484; 85025; 85027; 87040; 87086; 93005; 93010; 93306-TC; 99285-25

== ENCOUNTER 2018-08-17 13:43 | Emergency (ER) | payer OTHER ==
[2018-08-17 13:50] VITALS: PULSE 60; TEMP 98.5; BMI 23.9
--- NOTE | 2018-08-17 13:50 | PDOC ---
Rapid Medical Evaluation Time Seen by Provider: 08/17/18 13:48 Medical Evaluation: Allergies Allergy/AdvReac Type Severity Reaction Status Date / Time No Known Allergies Allergy Verified 10/18/17 17:51 08/17/18 13:48 I have performed a brief in-person evaluation of the patient. The patient presents with a chief complaint of: productive coughing, nasal congestion and subjective fever x 1 week Used otc cold and flu medicine Pertinent physical exam findings. NAD lungs clear bilaterally heart s1s2 I have ordered the following. rapid flu The patient will proceed to the ED for further evaluation.
[2018-08-17] MEDS ORDERED: DEXAMETHASONE LIQUID 0.5 MG/5 ML 240 ML BULK BOTTLE PO ONE (14:49)
--- NOTE | 2018-08-17 14:56 | PDOC ---
History of Present Illness - General Chief Complaint: Cold Symptoms Stated Complaint: FLU LIKE SYMPTOMS Time Seen by Provider: 08/17/18 13:48 - History of Present Illness Initial Comments: 08/17/18 14:45 67-year-old female presents for evaluation of cough and fever at home times one week Past History - Past Medical History Allergies/Adverse Reactions: Allergies Allergy/AdvReac Type Severity Reaction Status Date / Time No Known Allergies Allergy Verified 08/17/18 13:49 Home Medications: Ambulatory Orders Diltiazem Cd [Cardizem Cd -] 120 mg PO DAILY #30 cap.cd.24h 10/15/17 Apixaban [Eliquis] 5 mg PO BID 06/21/18 Aspirin [Aspirin EC] 81 mg PO DAILY 06/21/18 Lisinopril [Prinivil] 40 mg PO DAILY 06/21/18 Metoprolol Succinate [Toprol XL -] 75 mg PO HS #30 tab.sr.24h 06/23/18 Acetaminophen [Tylenol] 650 mg PO QID PRN 08/17/18 Albuterol Sulfate Inhaler - [Ventolin HFA Inhaler -] 1 - 2 inh PO Q4H #1 inhaler 08/17/18 Azithromycin [Zithromax -] 250 mg PO UTDICT #6 tab 08/17/18 Anemia: No Asthma: No Cancer: No Cardiac Disorders: Yes (afib, ? "small heart attacks") CVA: Yes (X2 last one in 2012) COPD: No CHF: No Dementia: No Diabetes: No GI Disorders: No Disorders: No HTN: Yes Hypercholesterolemia: Yes Liver Disease: No Seizures: No Thyroid Disease: No - Surgical History Abdominal Surgery: No Appendectomy: Yes Cardiac Surgery: No Cholecystectomy: No Lung Surgery: No Neurologic Surgery: No Orthopedic Surgery: Yes (left wrist, knee and ankle) - Immunization History Immunization Up to Date: Yes - Suicide/Smoking/Psychosocial Hx Smoking History: Never smoked Have you smoked in the past 12 months: No Number of Cigarettes Smoked Daily: 10 If you are a former smoker, when did you quit?: 1997 Hx Alcohol Use: No Drug/Substance Use Hx: No Substance Use Type: None Hx Substance Use Treatment: No Review of Systems - Review of Systems Constitutional: Yes: Fever Respiratory: Yes: Cough *Physical Exam - Vital Signs Last Vital Signs Temp Pulse Resp BP Pulse Ox 98.5 F 60 18 193/71 H 99 08/17/18 13:49 08/17/18 13:49 08/17/18 13:49 08/17/18 13:49 08/17/18 13:49 - Physical Exam Comments: 08/17/18 14:47 HEAD: NC/AT EYES: Conjuntiva clear Ears: Canals and TM's normal NOSE: No d/c THROAT: Moist mucous membrances, oral pharanx clear, uvula midline NECK: Supple without adenopathy CARDIAC: S1 S2 LUNGS: Mild rhonchi and decreased breath sounds at left base otherwise clear ABDOMEN: Soft NT ND MS: Full ROM in all joints without edema NEUROLOGIC: No gross sensory or motor deficits, NVID SKIN: Normal color and temperature no lesions or rashes Moderate Sedation - Procedure Monitoring Vital Signs: Procedure Monitoring Vital Signs Temperature 98.5 F 08/17/18 13:49 Pulse Rate 60 08/17/18 13:49 Respiratory Rate 18 08/17/18 13:49 Blood Pressure 193/71 H 08/17/18 13:49 O2 Sat by Pulse Oximetry (%) 99 08/17/18 13:49 ED Treatment Course - RADIOLOGY Radiology Studies Ordered: Category Date Time Status CHEST PA & LAT [RAD] Stat Radiology 08/17/18 14:43 Ordered Medical Decision Making - Medical Decision Making 08/17/18 15:38 clear and full breath sounds after 2 duo nebs 08/17/18 15:38 cxr clear, L apical opacity which has remained unchanged from prior cxr *DC/Admit/Observation/Transfer Diagnosis at time of Disposition: Bronchitis - Discharge Dispostion Disposition: HOME Condition at time of disposition: Stable Decision to Admit order: No - Prescriptions Prescriptions: Albuterol Sulfate Inhaler - [Ventolin HFA Inhaler -] 1 - 2 inh PO Q4H #1 inhaler Azithromycin [Zithromax -] 250 mg PO UTDICT #6 tab - Referrals Referrals: Chelsie Tenorio MD [Primary Care Provider] - - Patient Instructions Printed Discharge Instructions: DI for Acute Bronchitis Additional Instructions: Return to the emergency room should symptoms worsen or go unresolved. Please follow-up with your primary care physician one to 2 days for further evaluation and treatment options. Please use the inhaler as needed and take the antibiotics as directed. - Post Discharge Activity
[2018-08-17] MEDS ORDERED: DEXAMETHASONE SOD PHOSPHATE 10 MG/1 ML VIAL ONE (14:58)
[2018-08-17] MEDS ORDERED: ALBUTEROL SO4 2.5/IPRATROPIUM 0.5 INH SOL 3 ML VIAL.NEB. NEB ONE (14:59)
[2018-08-17] MEDS: ALBUTEROL SO4 2.5/IPRATROPIUM 0.5 INH SOL 3 ML VIAL.NEB. NEB SCH ×4 (15:06→15:48)
[2018-08-17 15:48] VITALS: BP 179/83
== END 2018-08-17 15:49 | disposition home or self-care (01) ==
LOC: JERFT 13:43
DX: J40 Bronchitis, not specified as acute or chronic (principal); I10 Essential (primary) hypertension; E78.00 Pure hypercholesterolemia, unspecified; I48.91 Unspecified atrial fibrillation; Z79.01 Long term (current) use of anticoagulants; Z86.73 Personal history of transient ischemic attack (TIA), and cerebral infarction without residual deficits
CPT/HCPCS: 71046-TC-FY; 87804; 99281-25

== ENCOUNTER 2018-09-09 00:02 | Inpatient (IN) | payer OTHER ==
[2018-09-09 00:21] VITALS: BMI 25.8
--- NOTE | 2018-09-09 00:34 | PDOC ---
Attending Attestation - HPI HPI: 09/09/18 01:37 The patient is a 67 year old female with a PMH of afib (on Eliquis) and HTN who presents to our ED with chest pain that began at approximately 10PM today. Patient noticed this chest pain after taking her medications this evening. Patient follows with Dr. Hull, cardiology. The patient denies shortness of breath, headache and dizziness. Denies fever, chills, nausea, vomit, diarrhea and constipation. Denies dysuria, frequency, urgency and hematuria. Allergies: NKA Surgical Hx: Ovarian cyst, Appendectomy Social Hx: Denies cigarette, alcohol, or drug use. - Physicial Exam PE: 09/09/18 01:37 Agrees with resident's note. <Harleen Lucero - Last Filed: 09/09/18 01:37> - Resident Resident Name: Kiki Murray - ED Attending Attestation I have performed the following: I have examined & evaluated the patient, The case was reviewed & discussed with the resident, I agree w/resident's findings & plan - Medical Decision Making 09/09/18 02:20 67-year-old female with a history of A. fib now with chest pain Her chest x-ray change in her heart chest x-ray shows no acute infiltrate Mild widening of the mediastinal structures appears unchanged On reevaluation at 2:20 AM patient is chest pain-free She will be admitted to medical service for further management <Sana Logan - Last Filed: 09/09/18 02:26>
--- NOTE | 2018-09-09 00:34 | PDOC ---
History of Present Illness - General Chief Complaint: Chest Pain Stated Complaint: CHEST PAIN Time Seen by Provider: 09/09/18 00:33 - History of Present Illness Initial Comments: 09/09/18 00:45 The patient is a 67 year old female with a PMH of Atrial Fibrillation (on Eliquis), HTN, CVA presents to our ED c/o acute onset of chest pain. Pain is substernal, pressure-like, constant without radiation. No associated shortness of breath, lightheadedness, palpitations. Pain started around 10 p.m. this evening shortly after she took her evening medications. H/o recent stress testing w/Dr. Hlul in July 2018. The patient denies abdominal pain, nausea/vomiting, diarrhea/constipation, dysuria/hematuria. NKDA Surgical: Ovarian cyst, Appendectomy Social: Lifetime non-smoker Past History - Past Medical History Allergies/Adverse Reactions: Allergies Allergy/AdvReac Type Severity Reaction Status Date / Time No Known Allergies Allergy Verified 08/17/18 13:49 Home Medications: Ambulatory Orders Diltiazem Cd [Cardizem Cd -] 120 mg PO DAILY #30 cap.cd.24h 10/15/17 Apixaban [Eliquis] 5 mg PO BID 06/21/18 Aspirin [Aspirin EC] 81 mg PO DAILY 06/21/18 Lisinopril [Prinivil] 40 mg PO DAILY 06/21/18 Metoprolol Succinate [Toprol XL -] 75 mg PO HS #30 tab.sr.24h 06/23/18 Acetaminophen [Tylenol] 650 mg PO QID PRN 08/17/18 Albuterol Sulfate Inhaler - [Ventolin HFA Inhaler -] 1 - 2 inh PO Q4H #1 inhaler 08/17/18 Anemia: No Asthma: No Cancer: No Cardiac Disorders: Yes (afib, ? "small heart attacks") CVA: Yes (X2 last one in 2012) COPD: No CHF: No Dementia: No Diabetes: No GI Disorders: No Disorders: No HTN: Yes Hypercholesterolemia: Yes Liver Disease: No Seizures: No Thyroid Disease: No - Surgical History Abdominal Surgery: No Appendectomy: Yes Cardiac Surgery: No Cholecystectomy: No Lung Surgery: No Neurologic Surgery: No Orthopedic Surgery: Yes (left wrist, knee and ankle) - Immunization History Immunization Up to Date: Yes - Suicide/Smoking/Psychosocial Hx Smoking History: Unknown if ever smoked Have you smoked in the past 12 months: No Number of Cigarettes Smoked Daily: 10 If you are a former smoker, when did you quit?: 1997 Hx Alcohol Use: No Drug/Substance Use Hx: No Substance Use Type: None Hx Substance Use Treatment: No Review of Systems - Review of Systems Constitutional: No: Chills, Fever HEENTM: No: Recent change in vision Respiratory: Yes: Shortness of Breath. No: Cough, Stridor, Wheezing Cardiac (ROS): Yes: Chest Pain. No: Lightheadedness, Palpitations, Syncope ABD/GI: No: Constipated, Diarrhea, Nausea, Vomiting : No: Burning, Dysuria *Physical Exam - Vital Signs Last Vital Signs Temp Pulse Resp BP Pulse Ox 97.1 F L 115 H 20 122/64 100 09/09/18 00:07 09/09/18 00:07 09/09/18 00:07 09/09/18 00:07 09/09/18 00:07 - Physical Exam General Appearance: Yes: Nourished, Appropriately Dressed HEENT: positive: Normal Voice, Hearing Grossly Normal Neck: positive: Trachea midline, Supple Respiratory/Chest: positive: Lungs Clear, Normal Breath Sounds Cardiovascular: positive: Regular Rate, S1, S2. negative: Edema, JVD, Murmur Vascular Pulses: Dorsalis-Pedis (R): 2+, Doralis-Pedis (L): 2+ Gastrointestinal/Abdominal: positive: Normal Bowel Sounds, Soft Extremity: positive: Normal Capillary Refill, Normal Inspection Integumentary: positive: Normal Color, Dry, Warm Neurologic: positive: Fully Oriented, Alert Moderate Sedation - Procedure Monitoring Vital Signs: Procedure Monitoring Vital Signs Temperature 97.1 F L 09/09/18 00:07 Pulse Rate 115 H 09/09/18 00:07 Respiratory Rate 20 09/09/18 00:07 Blood Pressure 122/64 09/09/18 00:07 O2 Sat by Pulse Oximetry (%) 100 09/09/18 00:07 ED Treatment Course - LABORATORY CBC & Chemistry Diagram: 09/09/18 00:50 09/09/18 00:50 Medical Decision Making - Medical Decision Making 09/09/18 00:52 67 year old female with AFib acute onset of chest pain. Heart Score 4. EKG shows AFib with RVR - will hydrate and reassess CBC, CMP unremarkable Troponin (-) x1 My read of CXR shows no acute infiltrate, widened mediastinum c/w previous CXR Patient reassessed @ bedside. VSS Symptomatically improved Repeat EKG shows AFib HR 75 Will admit to inpatient medicine service for further evaluation. *DC/Admit/Observation/Transfer Diagnosis at time of Disposition: Chest pain - Discharge Dispostion Condition at time of disposition: Fair Decision to Admit order: Yes - Referrals - Patient Instructions - Post Discharge Activity
[2018-09-09] MEDS ORDERED: NITROGLYCERIN SUBLINGUAL 1/200 0.3 MG BTL SL ONE (00:47)
[2018-09-09] MEDS ORDERED: NITROGLYCERIN SUBLINGUAL 1/150 0.4 MG TAB ONE (00:58)
[2018-09-09] MEDS ORDERED: NITROGLYCERIN SUBLINGUAL 1/150 0.4 MG TAB SL ONE (01:01)
[2018-09-09 01:06] LABS: BASO % 1.1 % (0-2.0); EOS % 1.1 % (0-4.5); HEMATOCRIT 34.9 % (32.4-45.2); HEMOGLOBIN 11.7 GM/dL (10.7-15.3); LYMPH % 20.8 % (8-40); MCH 29.7 pg (25.7-33.7); MCHC 33.6 g/dl (32.0-36.0); MEAN CELL VOLUME 88.2 fl (80-96); MEAN PLT VOLUME 9.7 fl (7.5-11.1); MONO % 7.5 % (3.8-10.2); NEUT % 69.5 % (42.8-82.8); PLATELET COUNT 178 K/MM3 (134-434); RBC 3.95 M/mm3 (3.60-5.2); RDW 14.8 % (11.6-15.6); WHITE BLOOD COUNT 6.1 K/mm3 (4.0-10.0)
[2018-09-09 01:36] LABS: ALK PHOS 61 U/L (45-117); ANION GAP 6 MMOL/L (8-16); BILIRUBIN,TOTAL 0.2 mg/dL (0.2-1); BLOOD UREA NITROGEN 21 mg/dL (7-18); CALCIUM 7.7 mg/dL (8.5-10.1); CHLORIDE 106 mmol/L (98-107); CO2 27 mmol/L (21-32); CREATININE 0.6 mg/dL (0.55-1.3); GLUCOSE,RANDOM 103 mg/dL (74-106); INR 1.44 (0.83-1.09); POTASSIUM 3.9 mmol/L (3.5-5.1); SGOT/AST 31 U/L (15-37); SGPT/ALT 14 U/L (13-61); SODIUM 139 mmol/L (136-145); TOT PROT 6.4 g/dl (6.4-8.2)
--- NOTE | 2018-09-09 02:16 | HP ---
CHIEF COMPLAINT: chest pain PCP: Dr. Pierce Cardio- Dr. Hull HISTORY OF PRESENT ILLNESS: 67F w/ pmhx of atrial fibrillation, HTN, CVA x2 presented with acute onset chest pain that started at 10pm last night. Pt states she was at home, laid down in bed and started feeling non-radiating retrosternal chest pain, 01/27. She denies physical exertion prior to this episode or eating any meals prior. The pain is described as dull and aching, with associated chest pressure that does not go away. She states being still makes it feel better, but any exertional movement will worsen it. She states she previously had similar pain this past June 2018. Pt also reports 01/27 headache that started this past Friday. She says it is localized to the entire R side and is alleviated with Tylenol. During the time of her chest pain episode, she also admitted to shortness of breath as well as palpitations. Of note, she was recently admitted to the hospital on 06/21/18, for L sided chest pain and discharged on higher dose of Metoprolol. ER course was notable for: (1) EKG showed a fib, HR 118, QTc 487 ms, (2) Trop neg x1 (3) Nitro 0.4 SL given Recent Travel: Denies PAST MEDICAL HISTORY: a fib HTN CVA x2 PAST SURGICAL HISTORY: ovarian cyst removal appendectomy L ankle/knee surgery Social History: Smoking: Denies Alcohol: Denies Drugs: Denies Family History: Mom- heart disease Sister- at age 61 due to unknown cancer Allergies No Known Allergies Allergy (Verified 08/17/18 13:49) HOME MEDICATIONS: Home Medications Medication Instructions Recorded Diltiazem Cd [Cardizem Cd -] 120 mg PO DAILY #30 cap.cd.24h 10/15/17 Apixaban [Eliquis] 5 mg PO BID 06/21/18 Aspirin [Aspirin EC] 81 mg PO DAILY 06/21/18 Lisinopril [Prinivil] 40 mg PO DAILY 06/21/18 Metoprolol Succinate [Toprol XL -] 75 mg PO HS #30 tab.sr.24h 06/23/18 Acetaminophen [Tylenol] 650 mg PO QID PRN 08/17/18 Albuterol Sulfate Inhaler - 1 - 2 inh PO Q4H #1 inhaler 08/17/18 [Ventolin HFA Inhaler -] REVIEW OF SYSTEMS CONSTITUTIONAL: Denies fever, chills, diaphoresis, generalized weakness, malaise , loss of appetite HEENT: Denies rhinorrhea, nasal congestion, throat pain, throat swelling, eye pain, visual changes CARDIOVASCULAR: Admits to chest pain, palpitations, irregular heart rate; Denies lightheadedness RESPIRATORY: Admits to shortness of breath, dyspnea with exertion; Denies cough , orthopnea, wheezing GASTROINTESTINAL: Admits to constipation; Denies abdominal pain, abdominal distension, nausea, vomiting, diarrhea GENITOURINARY: Denies dysuria, frequency, urgency, hesitancy, hematuria, flank pain, genital pain MUSCULOSKELETAL: Denies myalgia, arthralgia, joint swelling, back pain, neck pain NEUROLOGIC: Admits to R sided headache; Denies focal weakness or paresthesias, dizziness, unsteady gait PHYSICAL EXAMINATION Vital Signs - 24 hr 09/09/18 00:07 Temperature 97.1 F L Pulse Rate 115 H Respiratory 20 Rate Blood Pressure 122/64 O2 Sat by Pulse 100 Oximetry (%) GENERAL: Pleasant, Surinamese-speaking female. Awake, alert, and fully oriented, in no acute distress. Laying comfortably in bed. HEENT: AT/NC. EOMI. NATASHA. Moist mucus membranes. NECK: Normal range of motion, supple without lymphadenopathy, JVD, or masses. LUNGS: CTA B/L. No wheezes/crackles noted. Symmetric chest rise. HEART: Irregularly irregular, tachycardic. S1, S2. No murmurs noted. ABDOMEN: Soft, NT/ND. +BS in all 4 Q's. No masses or bruits noted. MUSCULOSKELETAL: Normal range of motion at all joints. No bony deformities or tenderness. No CVA tenderness. UPPER EXTREMITIES: 2+ pulses, warm, well-perfused. No cyanosis. No clubbing. No peripheral edema. LOWER EXTREMITIES: 2+ pulses, warm, well-perfused. No calf tenderness. 1+ pitting edema b/l lower extremities. NEUROLOGICAL: Normal speech. Facial muscles intact. Responds to commands. B/l sensation intact. Laboratory Results - last 24 hr 09/09/18 09/09/18 09/09/18 00:50 00:50 00:50 WBC 6.1 RBC 3.95 Hgb 11.7 Hct 34.9 MCV 88.2 MCH 29.7 MCHC 33.6 RDW 14.8 Plt Count 178 MPV 9.7 Absolute Neuts (auto) 4.2 Neutrophils % 69.5 D Lymphocytes % 20.8 D Monocytes % 7.5 Eosinophils % 1.1 Basophils % 1.1 Nucleated RBC % 0 PT with INR 17.00 H INR 1.44 H Sodium 139 Potassium 3.9 Chloride 106 Carbon Dioxide 27 Anion Gap 6 L BUN 21 H Creatinine 0.6 Creat Clearance w eGFR > 60 Random Glucose 103 Calcium 7.7 L Magnesium 2.0 Total Bilirubin 0.2 AST 31 ALT 14 Alkaline Phosphatase 61 Creatine Kinase 72 Troponin I 0.03 Total Protein 6.4 Albumin 3.0 L CONSULT: Cardio- Dr. Hull IMAGING: * EKG: A fib, HR 118, QTc 487 ms, nonspecific ST and T wave abn Past Imaging * Echo (07/07): Mild concentric LVH, no regional wall motion abnormalities, EF 65-70%, Trace to mild MR, mild TR, Trace to mild AR, Mild pulmonic valvular regurgitation, No pericardial effusion. ASSESSMENT/PLAN: 67F w/ pmhx of atrial fibrillation, HTN, CVA x2 presented with acute onset chest pain, r/o ACS. #Chest pain; r/o ACS vs. costochondritis. -Pt has significant cardiac history and was recently worked up by cardio. May need repeat stress test if not already done as outpatient. -Initial trop neg x1 -EKG showed a fib with HR 118, QTc [address], [address]-T wave depressions in V4-5; repeat EKG ordered -Cardio consult ordered (Dr. Hull) #Atrial fibrillation; HR currently 118 -CHADS VaSc 5 Cont home meds: Metoprolol Succinate 75 HS, Cardizem 120 QD, Eliquis 5 BID #HTN; Stable, now 122/64 -monitor BP Cont home meds: Lisinopril 40 QD #Hx of CVA -no neurological deficits noted Cont home meds: ASA 81 #Prophylaxis -Lovenox 40 SQ QD #FEN -PO hydration -recheck lytes in AM -sodium-controlled diet dispo -admit to tele obs -medications have been reconciled Visit type - Emergency Visit Emergency Visit: Yes ED Registration Date: 09/09/18 Care time: The patient presented to the Emergency Department on the above date and was hospitalized for further evaluation of their emergent condition. - New Patient This patient is new to me today: Yes Date on this admission: 09/09/18 - Critical Care Critical Care patient: No
--- NOTE | 2018-09-09 04:07 | PN ---
Teaching Attending Note Name of Resident: Ashley Pittman ATTENDING PHYSICIAN STATEMENT I saw and evaluated the patient. I reviewed the resident's note and discussed the case with the resident. I agree with the resident's findings and plan as documented. SUBJECTIVE: Patient is a 67 year old woan with PMH of atrial fibrillation, HTN, prior acute HI, CVA x2 presented with acute onset chest pain that started at 10pm last night. Patient states she was at home, laid down in bed and started feeling non- radiating retrosternal chest pain, 10. She denies physical exertion prior to this episode or eating any meals prior. The pain is described as dull and aching , with associated chest pressure that does not go away. She states being still makes it feel better, but any exertional movement will worsen it. She states she previously had similar pain this past June 2018. Pt also reports 7/10 headache that started this past Friday. She says it is localized to the entire R side and is alleviated with Tylenol. During the time of her chest pain episode, she also admitted to shortness of breath as well as palpitations. Of note, she was recently admitted to the hospital on 06/21/18, for L sided chest pain and discharged on higher dose of Metoprolol. OBJECTIVE: Alert Vital Signs Period Temp Pulse Resp BP Sys/Valdes Pulse Ox Last 24 Hr 97.1 F 115 20 122/64 100 HEENT: No Jaundice, eye redness or discharge, PERRLA, EOMI. Normocephalic, atraumatic. External ears are normal and hearing is grossly intact. No nasal discharge. Neck: Supple, nontender. No palpable adenopathy or thyromegaly. No JVD Chest: Good effort. Clear to auscultation and percussion. Heart: Regular. No S3, rub or murmur Abdomen: Not distended, soft, nontender and no HSM. No rebound or guarding. Normoactive bowel sounds. Ext: Peripheral pulses intact. No leg edema. Skin: Warm and dry. No petechiae, rash or ecchymosis. Neuro: Alert. Oriented x3. CN 2-12 grossly intact. Sensation grossly intact in all four extremities and DTR are symmetric. Current Medications Generic Name Dose Route Start Last Admin Trade Name Freq PRN Reason Stop Dose Admin Apixaban 5 mg 09/09/18 10:00 Eliquis - PO BID [facility] Aspirin 81 mg 09/09/18 10:00 Ecotrin - PO DAILY [facility] Diltiazem HCl 120 mg 09/09/18 10:00 Cardizem Cd - PO DAILY [facility] Enoxaparin Sodium 40 mg 09/09/18 10:00 Lovenox - SQ DAILY [facility] Lisinopril 40 mg 09/09/18 10:00 Prinivil PO DAILY [facility] Metoprolol Succinate 75 mg 09/09/18 22:00 Toprol Xl - PO HS [facility] Home Medications Medication Instructions Recorded Diltiazem Cd [Cardizem Cd -] 120 mg PO DAILY #30 cap.cd.24h 10/15/17 Apixaban [Eliquis] 5 mg PO BID 06/21/18 Aspirin [Aspirin EC] 81 mg PO DAILY 06/21/18 Lisinopril [Prinivil] 40 mg PO DAILY 06/21/18 Metoprolol Succinate [Toprol XL -] 75 mg PO HS #30 tab.sr.24h 06/23/18 Acetaminophen [Tylenol] 650 mg PO QID PRN 08/17/18 Albuterol Sulfate Inhaler - 1 - 2 inh PO Q4H #1 inhaler 08/17/18 [Ventolin HFA Inhaler -] Abnormal Lab Results 09/09/18 09/09/18 00:50 00:50 PT with INR 17.00 H INR 1.44 H Anion Gap 6 L BUN 21 H Calcium 7.7 L Albumin 3.0 L ASSESSMENT AND PLAN: 1. Chest pain - Patient is now painfree. EKG shows afib with RVR and mild ST depression in leads II, V4-5. Initial troponin is negative. Will admit to telemetry to rule out ACS, get ECHO and continue Eliquis for Afib. Adjust Toprol dose to improve rate control as needed. Consult cardiology. 2. Hypoalbuminemia - Possibly due to combined effects of malnutrition and inflammation associated with comorbid chronic conditions. Will ensure adequate dietary protein intake and also consult machine tool builder. 3. DVT prophylaxis - On Eliquis 4. Advance directives - Full code
[2018-09-09 05:52] LABS: EOS % 0.5 % (0-4.5); HEMATOCRIT 35.2 % (32.4-45.2); HEMOGLOBIN 11.6 GM/dL (10.7-15.3); LYMPH % 30.7 % (8-40); MCH 28.7 pg (25.7-33.7); MCHC 33.1 g/dl (32.0-36.0); MEAN CELL VOLUME 86.8 fl (80-96); MEAN PLT VOLUME 9.4 fl (7.5-11.1); MONO % 7.6 % (3.8-10.2); NEUT % 60.2 % (42.8-82.8); PLATELET COUNT 159 K/MM3 (134-434); RBC 4.06 M/mm3 (3.60-5.2); RDW 14.8 % (11.6-15.6)
[2018-09-09 06:19] LABS: ALBUMIN 2.9 g/dl (3.4-5.0); ALK PHOS 58 U/L (45-117); ANION GAP 6 MMOL/L (8-16); BILIRUBIN,TOTAL 0.3 mg/dL (0.2-1); BLOOD UREA NITROGEN 16 mg/dL (7-18); CALCIUM 7.8 mg/dL (8.5-10.1); CHLORIDE 111 mmol/L (98-107); CO2 26 mmol/L (21-32); CREATININE 0.5 mg/dL (0.55-1.3); GLUCOSE,RANDOM 84 mg/dL (74-106); SGOT/AST 14 U/L (15-37); SGPT/ALT 15 U/L (13-61); SODIUM 143 mmol/L (136-145); TOT PROT 6.2 g/dl (6.4-8.2)
--- NOTE | 2018-09-09 09:14 | PN ---
Physical Exam: SUBJECTIVE: Patient seen and examined at bedside- no acute events overnight. patient states that her pain is better than when she first arrived in the hospital. she states her pain is positional and it does not radiate anywhere. she denies having palpitations/SOB/fevers or chills OBJECTIVE: Vital Signs Period Temp Pulse Resp BP Sys/Valdes Pulse Ox Last 24 Hr 97.1 F 78-115 16-20 122-128/60-64 98-100 GENERAL: The patient is awake, alert, and fully oriented, in no acute distress. EYES:PEERLA; EOMI; no scleral icterus. NECK: no JVD; no lymphadenopathy LUNGS: CTA B/L; no rales, rhonchi or wheezing HEART: Regular rate and rhythm, S1, S2 without murmur, rub or gallop. ABDOMEN: Soft, nontender, nondistended, normoactive bowel sounds, no guarding, no rebound, no hepatosplenomegaly, no masses. EXTREMITIES: warm; well-perfused; no clubbing/cyanosis or edema NEUROLOGICAL: Cranial nerves II through XII grossly intact. Normal speech, gait not observed. PSYCH: Normal mood, normal affect. SKIN: Warm, dry, normal turgor, no rashes or lesions noted Laboratory Results - last 24 hr 09/09/18 09/09/18 09/09/18 00:50 00:50 00:50 WBC 6.1 RBC 3.95 Hgb 11.7 Hct 34.9 MCV 88.2 MCH 29.7 MCHC 33.6 RDW 14.8 Plt Count 178 MPV 9.7 Absolute Neuts (auto) 4.2 Neutrophils % 69.5 D Lymphocytes % 20.8 D Monocytes % 7.5 Eosinophils % 1.1 Basophils % 1.1 Nucleated RBC % 0 PT with INR 17.00 H INR 1.44 H Sodium 139 Potassium 3.9 Chloride 106 Carbon Dioxide 27 Anion Gap 6 L BUN 21 H Creatinine 0.6 Creat Clearance w eGFR > 60 Random Glucose 103 Calcium 7.7 L Magnesium 2.0 Total Bilirubin 0.2 AST 31 ALT 14 Alkaline Phosphatase 61 Creatine Kinase 72 Troponin I 0.03 Total Protein 6.4 Albumin 3.0 L 09/09/18 09/09/18 05:20 05:20 WBC 4.0 RBC 4.06 Hgb 11.6 Hct 35.2 MCV 86.8 MCH 28.7 MCHC 33.1 RDW 14.8 Plt Count 159 MPV 9.4 Absolute Neuts (auto) 2.4 Neutrophils % 60.2 Lymphocytes % 30.7 D Monocytes % 7.6 Eosinophils % 0.5 Basophils % 1.0 Nucleated RBC % 0 PT with INR INR Sodium 143 Potassium 4.0 Chloride 111 H Carbon Dioxide 26 Anion Gap 6 L BUN 16 Creatinine 0.5 L Creat Clearance w eGFR > 60 Random Glucose 84 Calcium 7.8 L Magnesium Total Bilirubin 0.3 AST 14 L ALT 15 Alkaline Phosphatase 58 Creatine Kinase Troponin I Total Protein 6.2 L Albumin 2.9 L Active Medications Generic Name Dose Route Start Last Admin Trade Name Freq PRN Reason Stop Dose Admin Apixaban 5 mg 09/09/18 10:00 Eliquis - PO BID [facility] Aspirin 81 mg 09/09/18 10:00 Ecotrin - PO DAILY [facility] Diltiazem HCl 120 mg 09/09/18 10:00 Cardizem Cd - PO DAILY [facility] Enoxaparin Sodium 40 mg 09/09/18 10:00 Lovenox - SQ DAILY [facility] Lisinopril 40 mg 09/09/18 10:00 Prinivil PO DAILY [facility] Metoprolol Succinate 50 mg/ 75 mg 09/09/18 22:00 Metoprolol Succinate 25 mg PO HS [facility] ASSESSMENT/PLAN: 67F w/ pmhx of atrial fibrillation, HTN, CVA x2 presented with acute onset chest pain, r/o ACS. #Chest pain; r/o ACS vs. costochondritis. -Pt has significant cardiac history and was recently worked up by cardio. May need repeat stress test if not already done as outpatient. -Initial trop neg x1 however second trop elevated at 0.2; will continue to trend ; as per dr juan bartholomew demand no need to treat for ACS as of now -EKG showed a fib with HR 118, QTc [address], [address]-T wave depressions in V4-5; repeat EKG ordered -Cardio consult ordered (Dr. Hull)- Dr. Page saw patient #Atrial fibrillation; HR currently 118 -CHADS VaSc 5 Cont home meds: Metoprolol Succinate 75 HS, Cardizem 120 QD, Eliquis 5 BID #HTN; Stable, now 122/64 -monitor BP Cont home meds: Lisinopril 40 QD #Hx of CVA -no neurological deficits noted Cont home meds: ASA 81 #Prophylaxis -Lovenox 40 SQ QD #FEN -PO hydration -recheck lytes in AM -sodium-controlled diet Problem List - Problems (1) Chest pain Code(s): R07.9 - CHEST PAIN, UNSPECIFIED (2) Atrial fibrillation with RVR Code(s): I48.91 - UNSPECIFIED ATRIAL FIBRILLATION Visit type - Emergency Visit Emergency Visit: Yes ED Registration Date: 09/09/18 Care time: The patient presented to the Emergency Department on the above date and was hospitalized for further evaluation of their emergent condition. - New Patient This patient is new to me today: Yes Date on this admission: 09/09/18 - Critical Care Critical Care patient: No
[2018-09-09] MEDS ORDERED: ASPIRIN COATED 81 MG TABLET.EC ONE (09:39)
[2018-09-09] MEDS ORDERED: IBUPROFEN 400 MG TABLET (FP) PO ONE (09:46)
[2018-09-09] MEDS: ASPIRIN COATED 81 MG TABLET.EC PO SCH (09:50)
[2018-09-09] MEDS: APIXABAN 5 MG TABLET PO SCH ×2 (09:50→22:21)
[2018-09-09] MEDS: ENOXAPARIN NA (PORCINE) 40 MG/0.4 ML DISP.SYRIN SQ SCH (09:50)
[2018-09-09] MEDS: LISINOPRIL 20 MG TABLET (FP) PO SCH (09:51)
--- NOTE | 2018-09-09 09:55 | CON.CARD ---
Cardiology Consult (text) - Consultation Consultation Note: Consult Consult Specialty:: cardio - History of Present Illness Chief Complaint: cp History of Present Illness: 67F h/o afib, HTN, CVA p/w chest pain starting night prior to admission. Was lying down, felt 7/10 chest pain that was center of chest, non-radiating, worse with movement. Recently admitted 06/2018 for chest pain, noted to be in afib with RVR and was discharged on increased dose of metoprolol. Pain felt similar this time, now feels much better. Had normal stress test in the office 06/2018. 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 (x2) Cardio/Vascular: Yes: HTN ...: No - Alcohol/Substance Use Hx Alcohol Use: No History of Substance Use: reports: None - Smoking History Smoking history: Former smoker Have you smoked in the past 12 months: No Aproximately how many cigarettes per day: 10 If you are a former smoker, when did you quit?: 1997 - Social History ADL: Independent Occupation: retired Home Medications - Allergies Allergies/Adverse Reactions: Allergies Allergy/AdvReac Type Severity Reaction Status Date / Time No Known Allergies Allergy Verified 08/17/18 13:49 - Home Medications Home Medications: Home Medications Medication Instructions Recorded Diltiazem Cd [Cardizem Cd -] 120 mg PO DAILY #30 cap.cd.24h 10/15/17 Apixaban [Eliquis] 5 mg PO BID 06/21/18 Aspirin [Aspirin EC] 81 mg PO DAILY 06/21/18 Lisinopril [Prinivil] 40 mg PO DAILY 06/21/18 Metoprolol Succinate [Toprol XL -] 75 mg PO HS #30 tab.sr.24h 06/23/18 Acetaminophen [Tylenol] 650 mg PO QID PRN 08/17/18 Albuterol Sulfate Inhaler - 1 - 2 inh PO Q4H #1 inhaler 08/17/18 [Ventolin HFA Inhaler -] Family Disease History - Family Disease History Family Disease History: Other: Mother (HTN) Review of Systems - Review of Systems Constitutional: denies: Chills, Fever Eyes: denies: Eye Pain HENT: denies: Nasal Congestion Neck: denies: Stiffness Cardiovascular: reports: Palpitations. denies: Edema Respiratory: denies: Orthopnea, PND Gastrointestinal: denies: Diarrhea, Rectal Bleeding Genitourinary: denies: Burning, Hematuria Musculoskeletal: denies: Muscle Pain Integumentary: denies: Rash Neurological: denies: Numbness, Seizure, Syncope Endocrine: denies: Excessive Sweating Hematology/Lymphatic: denies: Excessive Bleeding Vital Signs Period Temp Pulse Resp BP Sys/Valdes Pulse Ox Last 24 Hr 97.1 F 72-115 16-20 122-130/60-88 98-100 Constitutional: Yes: Well Nourished, No Distress Eyes: No: Sclera Icterus HENT: No: Nasal Congestion Neck: No: Decreased ROM Respiratory: Yes: CTA Bilaterally. No: Accessory Muscle Use Gastrointestinal: Yes: Normal Bowel Sounds. No: Distention, Hepatomegaly, Palpable Mass, Tenderness Cardiovascular: Yes: Regular Rate and Rhythm JVD: No Carotid Bruit: No PMI: Non-Displaced Heart Sounds: Yes: S1, S2. No: Gallop Murmur: No: Systolic Murmur, Diastolic Murmur Musculoskeletal: Yes: Other (No kyphosis) Extremities: No: Cool, Cyanosis Edema: No Peripheral Pulses: 2+ Left Carotid, 2+ Right Carotid, 2+ Left Doralis Pedis, 2+ Right Dorsalis Pedis Integumentary: No: Jaundice Neurological: Yes: Alert, Oriented (x3) Psychiatric: No: Agitated Laboratory Last Values WBC 4.0 K/mm3 (4.0-10.0) 09/09/18 05:20 RBC 4.06 M/mm3 (3.60-5.2) 09/09/18 05:20 Hgb 11.6 GM/dL (10.7-15.3) 09/09/18 05:20 Hct 35.2 % (32.4-45.2) 09/09/18 05:20 MCV 86.8 fl (80-96) 09/09/18 05:20 MCH 28.7 pg (25.7-33.7) 09/09/18 05:20 MCHC 33.1 g/dl (32.0-36.0) 09/09/18 05:20 RDW 14.8 % (11.6-15.6) 09/09/18 05:20 Plt Count 159 K/MM3 (134-434) 09/09/18 05:20 MPV 9.4 fl (7.5-11.1) 09/09/18 05:20 Absolute Neuts (auto) 2.4 K/mm3 (1.5-8.0) 09/09/18 05:20 Neutrophils % 60.2 % (42.8-82.8) 09/09/18 05:20 Lymphocytes % 30.7 % (8-40) D 09/09/18 05:20 Monocytes % 7.6 % (3.8-10.2) 09/09/18 05:20 Eosinophils % 0.5 % (0-4.5) 09/09/18 05:20 Basophils % 1.0 % (0-2.0) 09/09/18 05:20 Nucleated RBC % 0 % (0-0) 09/09/18 05:20 PT with INR 17.00 SEC (9.7-13.0) H 09/09/18 00:50 INR 1.44 (0.83-1.09) H 09/09/18 00:50 Sodium 143 mmol/L (136-145) 09/09/18 05:20 Potassium 4.0 mmol/L (3.5-5.1) 09/09/18 05:20 Chloride 111 mmol/L (98-107) H 09/09/18 05:20 Carbon Dioxide 26 mmol/L (21-32) 09/09/18 05:20 Anion Gap 6 MMOL/L (8-16) L 09/09/18 05:20 BUN 16 mg/dL (7-18) 09/09/18 05:20 Creatinine 0.5 mg/dL (0.55-1.3) L 09/09/18 05:20 Creat Clearance w eGFR > 60 (>60) 09/09/18 05:20 Random Glucose 84 mg/dL (74-106) 09/09/18 05:20 Calcium 7.8 mg/dL (8.5-10.1) L 09/09/18 05:20 Magnesium 2.0 mg/dL (1.8-2.4) 09/09/18 00:50 Total Bilirubin 0.3 mg/dL (0.2-1) 09/09/18 05:20 AST 14 U/L (15-37) L 09/09/18 05:20 ALT 15 U/L (13-61) 09/09/18 05:20 Alkaline Phosphatase 58 U/L (45-117) 09/09/18 05:20 Creatine Kinase 72 U/L (26-192) 09/09/18 00:50 Troponin I 0.03 ng/ml (0.00-0.05) 09/09/18 00:50 Total Protein 6.2 g/dl (6.4-8.2) L 09/09/18 05:20 Albumin 2.9 g/dl (3.4-5.0) L 09/09/18 05:20 Assessment/Plan EKG afib rate 118 bpm, no ischemic changes CXR: clear lungs/pleura Echo 12/2017: nl lv, rv tds, mild mr, mild tr, mild pr, nl rvsp Echo 06/2018 LV nl size/function, mild conc LVH, tr to mild MR, mild TR, PASP at least 27 mmHg, tr to mild AR mibi 06/2018 no ischemia, EF 67% ASSESSMENT/PLAN chest pain - trop neg x 1, no ischemic changes on EKG - less likely ACS - mibi no ischemia 06/2018 - patient is symptomatic during rapid afib episodes - similar presentation in 2017 and 06/2018, rate now improved with resolution of symptoms - continue trend trops, monitor on tele paroxysmal afib - continue metoprolol 75 mg daily, cardizem 120 mg daily, eliquis 5 mg BID - rate improved now, noted sinus bradycardia 40s-50s during prior admission, defer further uptitration of meds htn - cont home meds
[2018-09-09] MEDS ORDERED: METOPROLOL TARTRATE 5 MG/5 ML VIAL IVPUSH ONE (13:45)
[2018-09-09] MEDS ORDERED: METOPROLOL TARTRATE 5 MG/5 ML VIAL ONE ×2 (13:46→17:30)
--- NOTE | 2018-09-09 14:12 | PN ---
Teaching Attending Note Name of Resident: Ivy Daniel ATTENDING PHYSICIAN STATEMENT I saw and evaluated the patient. I reviewed the resident's note and discussed the case with the resident. I agree with the resident's findings and plan as documented. SUBJECTIVE: seen at 9:45 am . No fever , NO chills. complained of Cp in Left lower chest No radiation to the neck or L arm, has no SOB. pain is continuous. no dyuria , no cough or fever. no diarrhea OBJECTIVE: NAD. CV; irreg irreg. no MRG Lungs: CTAB Ext : no edema reproducible cp at LLSB . ASSESSMENT AND PLAN: 67 y/o lady with h/o A fib , HTN, AR, CVA, who presented with CP and was found to have a fib with RVR. 1- A fib with RVR: was rate controlled in am , but now HR in 140. no signs of infection . NL TSH EKGs reviewed. lateral [address] depression during tachycardia. - give IV BB and CCb - cont home meds, cardizem CD and toprol xl. - if no response, can start cardizem gtt - last echo in 07/07 reviewed. mild MR, TR, AR. - cont eliquis 2- CP; last stress per card was neg . - possible slight elevation in trop due to tachycardia. - trend trop . - will check with card if she has stents and if she needs asa in addition to Eliquis 3- HTN: cont cardizem, BB and CCB . 4- HLOC
[2018-09-09] MEDS ORDERED: METOPROLOL TARTRATE 5 MG/5 ML VIAL IVPUSH PRN (17:33)
[2018-09-09] MEDS ORDERED: METOPROLOL TARTRATE 25 MG TABLET (FP) PO ONE (17:45)
[2018-09-09] MEDS ORDERED: METOPROLOL SUCCINATE 50 MG, METOPROLOL SUCCINATE 25 MG PO SCH (22:00)
[2018-09-09] MEDS ORDERED: metoPROLOL SUCCINATE 25 MG TAB.SR.24H (FP) ONE (22:13)
--- NOTE | 2018-09-10 02:31 | EKG ---
Test Reason : Blood Pressure : / mmHG Vent. Rate : 135 BPM Atrial Rate : 129 BPM P-R Int : 000 ms QRS Dur : 102 ms QT Int : 274 ms P-R-T Axes : 000 003 129 degrees QTc Int : 411 ms ATRIAL FIBRILLATION WITH RAPID VENTRICULAR RESPONSE WITH PREMATURE VENTRICULAR OR ABERRANTLY CONDUCTED COMPLEXES NONSPECIFIC ST AND T WAVE ABNORMALITY ABNORMAL ECG WHEN COMPARED WITH ECG OF 09-SEP-2018 03:51, VENT. RATE HAS INCREASED BY [address] NOW DEPRESSED IN ANTEROLATERAL LEADS Confirmed by SUKHWINDER ABERNATHY MD ([id number]) on 09/10/2018 2:31:49 AM Referred By: Confirmed By:SUKHWINDER ABERNATHY MD
--- NOTE | 2018-09-10 02:35 | EKG ---
Test Reason : Blood Pressure : / mmHG Vent. Rate : 075 BPM Atrial Rate : 258 BPM P-R Int : 000 ms QRS Dur : 106 ms QT Int : 368 ms P-R-T Axes : 000 002 027 degrees QTc Int : 410 ms ATRIAL FIBRILLATION NONSPECIFIC T WAVE ABNORMALITY ABNORMAL ECG WHEN COMPARED WITH ECG OF 09-SEP-2018 00:32, VENT. RATE HAS DECREASED BY [address] NO LONGER DEPRESSED IN ANTERIOR LEADS NONSPECIFIC T WAVE ABNORMALITY NOW EVIDENT IN INFERIOR LEADS Confirmed by SUKHWINDER ABERNATHY MD ([id number]) on 09/10/2018 2:35:17 AM Referred By: Confirmed By:SUKHWINDER ABERNATHY MD
--- NOTE | 2018-09-10 02:37 | EKG ---
Test Reason : Blood Pressure : / mmHG Vent. Rate : 118 BPM Atrial Rate : 096 BPM P-R Int : 000 ms QRS Dur : 102 ms QT Int : 348 ms P-R-T Axes : 000 021 073 degrees QTc Int : 487 ms ATRIAL FIBRILLATION WITH RAPID VENTRICULAR RESPONSE NONSPECIFIC ST AND T WAVE ABNORMALITY ABNORMAL ECG WHEN COMPARED WITH ECG OF 21-JUN-2018 19:00, ATRIAL FIBRILLATION HAS REPLACED SINUS RHYTHM VENT. RATE HAS INCREASED BY [address] NOW DEPRESSED IN INFERIOR LEADS NON-SPECIFIC CHANGE IN ST SEGMENT IN LATERAL LEADS NONSPECIFIC T WAVE ABNORMALITY NO LONGER EVIDENT IN INFERIOR LEADS Confirmed by SUKHWINDER ABERNATHY MD ([id number]) on 09/10/2018 2:36:48 AM Referred By: Confirmed By:SUKHWINDER ABERNATHY MD
[2018-09-10 08:11] LABS: HEMATOCRIT 38.6 % (32.4-45.2); HEMOGLOBIN 12.7 GM/dL (10.7-15.3); MCH 28.7 pg (25.7-33.7); MEAN CELL VOLUME 86.9 fl (80-96); MEAN PLT VOLUME 9.7 fl (7.5-11.1); PLATELET COUNT 173 K/MM3 (134-434); RBC 4.44 M/mm3 (3.60-5.2); RDW 14.8 % (11.6-15.6); WHITE BLOOD COUNT 3.4 K/mm3 (4.0-10.0)
--- NOTE | 2018-09-10 08:38 | PN ---
Physical Exam: SUBJECTIVE: Patient seen and examined at bedside- patient had 6 beats of vtach overnight however patient was sleeping and asymptomatic; she is still complaining of chest discomfort however says its improved from when she first came in OBJECTIVE: Vital Signs Period Temp Pulse Resp BP Sys/Valdes Pulse Ox Last 24 Hr 97.2 F-98.2 F 72-157 16-20 108-144/49-88 95-100 GENERAL: The patient is awake, alert, and fully oriented, in no acute distress. EYES: PEERLA; EOMI; no scleral icterus. NECK: no JVD; no lymphadenopathy LUNGS: CTA B/L; no rales, rhonchi or wheezing HEART: irregularly irregular, S1, S2 without murmur, rub or gallop. ABDOMEN: Soft, nontender, nondistended, normoactive bowel sounds, no guarding, no rebound, no hepatosplenomegaly, no masses. EXTREMITIES: 2+ pulses, warm, well-perfused, no edema. NEUROLOGICAL: Cranial nerves II through XII grossly intact. Normal speech, gait not observed. PSYCH: Normal mood, normal affect. SKIN: Warm, dry, normal turgor, no rashes or lesions noted Laboratory Results - last 24 hr 09/09/18 09/09/18 09/09/18 10:10 15:30 21:00 WBC RBC Hgb Hct MCV MCH MCHC RDW Plt Count MPV Troponin I 0.21 H 0.19 H 0.16 H TSH 1.81 09/10/18 07:30 WBC 3.4 L RBC 4.44 Hgb 12.7 Hct 38.6 MCV 86.9 MCH 28.7 MCHC 33.0 RDW 14.8 Plt Count 173 MPV 9.7 Troponin I TSH Active Medications Generic Name Dose Route Start Last Admin Trade Name Freq PRN Reason Stop Dose Admin Apixaban 5 mg 09/09/18 10:00 09/09/18 22:21 Eliquis - PO 5 mg BID RANDALL Administration Aspirin 81 mg 09/09/18 10:00 09/09/18 09:50 Ecotrin - PO 81 mg DAILY RANDALL Administration Diltiazem HCl 120 mg 09/09/18 10:00 09/09/18 09:50 Cardizem Cd - PO 120 mg DAILY RANDALL Administration Enoxaparin Sodium 40 mg 09/09/18 10:00 09/09/18 09:50 Lovenox - SQ 40 mg DAILY RANDALL Administration Lisinopril 40 mg 09/09/18 10:00 09/09/18 09:51 Prinivil PO 40 mg DAILY RANDALL Administration Metoprolol Succinate 50 mg/ 75 mg 09/09/18 22:00 09/09/18 22:21 Metoprolol Succinate 25 mg PO 75 mg HS RANDALL Administration Metoprolol Tartrate 10 mg 09/09/18 17:33 09/09/18 17:37 Lopressor Injection - IVPUSH 10 mg Q4H PRN Administration TACHYCARDIA ASSESSMENT/PLAN: 67F w/ pmhx of atrial fibrillation, HTN, CVA x2 presented with acute onset chest pain, r/o ACS. #Chest pain; r/o ACS vs. costochondritis. -Pt has significant cardiac history and was recently worked up by cardio. May need repeat stress test if not already done as outpatient. -Initial trop neg x1 however second trop elevated at 0.2 and peaked and is now downtrending; will continue to trend; as per dr page liekly demand no need to treat for ACS as of now -EKG showed a fib with HR 118, QTc [address], [address]-T wave depressions in V4-5; repeat EKG ordered -Cardio consult ordered (Dr. Hull)- Dr. Page saw patient #Atrial fibrillation; HR currently 118 -CHADS VaSc 5 Cont home meds: Metoprolol Succinate 75 BID given poor rate control, Cardizem 120 QD, Eliquis 5 BID -might need outpatient ablation #HTN; Stable, now 122/64 -monitor BP Cont home meds: Lisinopril 40 QD #Hx of CVA -no neurological deficits noted Cont home meds: ASA 81 #Prophylaxis -Lovenox 40 SQ QD #FEN -PO hydration -recheck lytes in AM -sodium-controlled diet Problem List - Problems (1) Chest pain Code(s): R07.9 - CHEST PAIN, UNSPECIFIED (2) Atrial fibrillation with RVR Code(s): I48.91 - UNSPECIFIED ATRIAL FIBRILLATION Visit type - Emergency Visit Emergency Visit: Yes ED Registration Date: 09/10/18 Care time: The patient presented to the Emergency Department on the above date and was hospitalized for further evaluation of their emergent condition. - New Patient This patient is new to me today: No - Critical Care Critical Care patient: No
[2018-09-10 08:40] LABS: ANION GAP 6 MMOL/L (8-16); BLOOD UREA NITROGEN 19 mg/dL (7-18); CALCIUM 8.2 mg/dL (8.5-10.1); CHLORIDE 110 mmol/L (98-107); CO2 24 mmol/L (21-32); CREATININE 0.6 mg/dL (0.55-1.3); GLUCOSE,RANDOM 83 mg/dL (74-106); MAGNESIUM 1.9 mg/dL (1.8-2.4); POTASSIUM 3.9 mmol/L (3.5-5.1); SODIUM 139 mmol/L (136-145)
[2018-09-10] MEDS: LISINOPRIL 20 MG TABLET (FP) PO SCH (09:06)
[2018-09-10] MEDS: ASPIRIN COATED 81 MG TABLET.EC PO SCH (09:06)
[2018-09-10] MEDS: ENOXAPARIN NA (PORCINE) 40 MG/0.4 ML DISP.SYRIN SQ SCH (09:06)
[2018-09-10] MEDS: APIXABAN 5 MG TABLET PO SCH ×2 (09:06→21:27)
--- NOTE | 2018-09-10 10:59 | PN ---
Progress Note (short form) - Note Progress Note: s: still with palps/cp, no sob dizzy o: Vital Signs Period Temp Pulse Resp BP Sys/Valdes Pulse Ox Last 24 Hr 97.2 F-98.2 F 76-157 16-20 108-144/49-84 95-100 Constitutional: Yes: Well Nourished, No Distress Eyes: No: Sclera Icterus HENT: No: Nasal Congestion Respiratory: Yes: CTA Bilaterally. No: Accessory Muscle Use Gastrointestinal: Yes: Normal Bowel Sounds. No: Distention, Hepatomegaly, Palpable Mass, Tenderness Cardiovascular: Yes: irreg JVD: No Heart Sounds: Yes: S1, S2. No: Gallop Murmur: No: Systolic Murmur, Diastolic Murmur Extremities: No: Cool, Cyanosis Edema: No Integumentary: No: Jaundice Neurological: Yes: Alert, Oriented (x3) Psychiatric: No: Agitated Current Medications Generic Name Dose Route Start Last Admin Trade Name Freq PRN Reason Stop Dose Admin Apixaban 5 mg 09/09/18 10:00 09/10/18 09:06 Eliquis - PO 5 mg BID RANDALL Administration Aspirin 81 mg 09/09/18 10:00 09/10/18 09:06 Ecotrin - PO 81 mg DAILY RANDALL Administration Diltiazem HCl 120 mg 09/09/18 10:00 09/10/18 09:06 Cardizem Cd - PO 120 mg DAILY RANDALL Administration Enoxaparin Sodium 40 mg 09/09/18 10:00 09/10/18 09:06 Lovenox - SQ 40 mg DAILY RANDALL Administration Lisinopril 40 mg 09/09/18 10:00 09/10/18 09:06 Prinivil PO 40 mg DAILY RANDALL Administration Metoprolol Succinate 75 mg 09/10/18 11:00 Toprol Xl - PO BID RANDALL Metoprolol Tartrate 10 mg 09/09/18 17:33 09/09/18 17:37 Lopressor Injection - IVPUSH 10 mg Q4H PRN Administration TACHYCARDIA CBC, BMP 09/10/18 07:30 09/10/18 07:30 EKG afib rate 118 bpm, no ischemic changes CXR: clear lungs/pleura Echo 12/2017: nl lv, rv tds, mild mr, mild tr, mild pr, nl rvsp Echo 06/2018 LV nl size/function, mild conc LVH, tr to mild MR, mild TR, PASP at least 27 mmHg, tr to mild AR mibi 06/2018 no ischemia, EF 67% tele: afib with rvr at times ASSESSMENT/PLAN chest pain - trop neg, no ischemic changes on EKG, no signs acs - nuclear stress test with no ischemia 06/2018 - patient is symptomatic during rapid afib episodes - similar presentation in 2017 and 06/2018 paroxysmal afib - still with rvr and symptoms at times. will cont dilt and increase toprol to bid. Monitor on tele today. Will arrange for outpt EP eval for possible ablation given her recurrent symptomatic afib. htn - cont home meds
[2018-09-10] MEDS ORDERED: MAG HYDROX/AL HYDROX/SIMETH 30 ML UNIT-DOSE CUP PO ONE (13:30)
[2018-09-10] MEDS: metoPROLOL SUCCINATE 25 MG TAB.SR.24H (FP) PO SCH ×2 (15:33→21:27)
--- NOTE | 2018-09-10 16:56 | PN ---
Teaching Attending Note Name of Resident: Ivy Daniel ATTENDING PHYSICIAN STATEMENT I saw and evaluated the patient. I reviewed the resident's note and discussed the case with the resident. I agree with the resident's findings and plan as documented. SUBJECTIVE: No fever or chills . had palpitations over night with increased CP. also reports GERD sx. OBJECTIVE: NAD. CV; irreg irreg. no MRG Lungs: CTAB Ext : no edema reproducible cp at LLSB . Abd TTP in epigastric area, nl BS, no guarding ASSESSMENT AND PLAN: 67 y/o lady with h/o A fib , HTN, CVA, who presented with CP and was found to have a fib with RVR. 1- A fib with RVR: need more rate control - appreciate card help, cont increased dose of toprol and home dose of cardizem - cont eliquis - plan fro EP and possible ablation as out pt 2- CP; last stress per card was neg. d/w card, she does not have stents, and OK to dc aspirin - try antiacids and PPI for possible GERD given epigastric tenderness 3- HTN: cont cardizem, BB and lisinopril 4- HLOC . if rate is controlled tomorrow , can dc home
[2018-09-10] MEDS ORDERED: PT OWN MED DRAWER 7, Y5N ONE ×3 (17:39→21:22)
[2018-09-10] MEDS: SUCRALFATE 1 GM TABLET (FP) PO SCH ×2 (18:25→21:27)
[2018-09-11 07:39] LABS: HEMATOCRIT 33.9 % (32.4-45.2); HEMOGLOBIN 11.3 GM/dL (10.7-15.3); MCH 29.2 pg (25.7-33.7); MCHC 33.4 g/dl (32.0-36.0); MEAN CELL VOLUME 87.6 fl (80-96); MEAN PLT VOLUME 9.8 fl (7.5-11.1); PLATELET COUNT 152 K/MM3 (134-434); RBC 3.87 M/mm3 (3.60-5.2); RDW 14.7 % (11.6-15.6); WHITE BLOOD COUNT 3.4 K/mm3 (4.0-10.0)
[2018-09-11 08:32] LABS: ANION GAP 6 MMOL/L (8-16); BLOOD UREA NITROGEN 20 mg/dL (7-18); CALCIUM 7.8 mg/dL (8.5-10.1); CHLORIDE 108 mmol/L (98-107); CO2 26 mmol/L (21-32); CREATININE 0.6 mg/dL (0.55-1.3); GLUCOSE,RANDOM 82 mg/dL (74-106); MAGNESIUM 2.2 mg/dL (1.8-2.4); PHOSPHOROUS 3.4 mg/dL (2.5-4.9); POTASSIUM 4.1 mmol/L (3.5-5.1); SODIUM 141 mmol/L (136-145)
[2018-09-11] MEDS ORDERED: PANTOPRAZOLE 40 MG TABLET (FP) PO SCH (10:00)
[2018-09-11] MEDS ORDERED: PT OWN MED DRAWER 7, Y5N ONE ×4 (10:13→17:19)
[2018-09-11] MEDS: ASPIRIN COATED 81 MG TABLET.EC PO SCH (10:41)
[2018-09-11] MEDS: APIXABAN 5 MG TABLET PO SCH (11:00)
[2018-09-11] MEDS: SUCRALFATE 1 GM TABLET (FP) PO SCH ×3 (11:00→17:39)
[2018-09-11] MEDS: LISINOPRIL 20 MG TABLET (FP) PO SCH (11:52)
[2018-09-11] MEDS: metoPROLOL SUCCINATE 25 MG TAB.SR.24H (FP) PO SCH (11:52)
--- NOTE | 2018-09-11 12:21 | PN ---
Progress Note (short form) - Note Progress Note: s:feels better, no more cp/palps. no sob or dizzy o: Vital Signs Period Temp Pulse Resp BP Sys/Valdes Pulse Ox Last 24 Hr 97.5 F-98.2 F 53-71 16-18 118-152/61-77 97-98 Constitutional: Yes: Well Nourished, No Distress Eyes: No: Sclera Icterus HENT: No: Nasal Congestion Respiratory: Yes: CTA Bilaterally. No: Accessory Muscle Use Gastrointestinal: Yes: Normal Bowel Sounds. No: Distention, Hepatomegaly, Palpable Mass, Tenderness Cardiovascular: Yes:rrr JVD: No Heart Sounds: Yes: S1, S2. No: Gallop Murmur: No: Systolic Murmur, Diastolic Murmur Extremities: No: Cool, Cyanosis Edema: No Integumentary: No: Jaundice Neurological: Yes: Alert, Oriented (x3) Psychiatric: No: Agitated Current Medications Generic Name Dose Route Start Last Admin Trade Name Freq PRN Reason Stop Dose Admin Apixaban 5 mg 09/09/18 10:00 09/11/18 11:00 Eliquis - PO 5 mg BID RANDALL Administration Diltiazem HCl 120 mg 09/09/18 10:00 09/11/18 11:52 Cardizem Cd - PO 120 mg DAILY RANDALL Administration Lisinopril 40 mg 09/09/18 10:00 09/11/18 11:52 Prinivil PO 40 mg DAILY RANDALL Administration Metoprolol Succinate 75 mg 09/10/18 13:15 09/11/18 11:52 Toprol Xl - PO 75 mg BID RANDALL Administration Metoprolol Tartrate 10 mg 09/09/18 17:33 09/09/18 17:37 Lopressor Injection - IVPUSH 10 mg Q4H PRN Administration TACHYCARDIA Pantoprazole Sodium 40 mg 09/11/18 10:00 09/11/18 11:00 Protonix - PO 40 mg DAILY RANDALL Administration Sucralfate 1 gm 09/10/18 18:00 09/11/18 11:00 Carafate - PO 1 gm QID RANDALL Administration CBC, BMP 09/11/18 06:00 09/11/18 06:00 EKG afib rate 118 bpm, no ischemic changes CXR: clear lungs/pleura Echo 12/2017: nl lv, rv tds, mild mr, mild tr, mild pr, nl rvsp Echo 06/2018 LV nl size/function, mild conc LVH, tr to mild MR, mild TR, PASP at least 27 mmHg, tr to mild AR mibi 06/2018 no ischemia, EF 67% tele: sr, no significant bradycardia/pauses ASSESSMENT/PLAN chest pain - trop neg, no ischemic changes on EKG, no signs acs - nuclear stress test with no ischemia 06/2018 - patient is symptomatic during rapid afib episodes - similar presentation in 2017 and 06/2018 - now that in sr, her sxs resolved paroxysmal afib - in sr now - cont current bb/dilt - Will arrange for outpt EP eval for possible ablation given her recurrent symptomatic afib htn - cont home meds cardiac bains stable for dc
--- NOTE | 2018-09-11 13:51 | PN ---
Teaching Attending Note Name of Resident: Ivy Daniel ATTENDING PHYSICIAN STATEMENT I saw and evaluated the patient. I reviewed the resident's note and discussed the case with the resident. I agree with the resident's findings and plan as documented. SUBJECTIVE: No fever or chills. No No CP or palpitations. OBJECTIVE: NAD. CV; RRR. no MRG Lungs: CTAB Ext : no edema ASSESSMENT AND PLAN: 67 y/o lady with h/o A fib , HTN, CVA, who presented with CP and was found to have a fib with RVR. 1- A fib with RVR: in sinus today and rate is controlled - cont toprol 75 BID and cardizem 120 - f/u as out pt for EP study - cont eliquis 2- CP; last stress per card was neg. d/w card, she does not have stents, and OK to dc aspirin resolved with rate controlled and anti acids 3- HTN: cont cardizem, BB and lisinopril DC home today
[2018-09-11 14:48] VITALS: BP 141/67; PULSE 56; TEMP 97.3
--- NOTE | 2018-09-11 16:03 | DS ---
Physical Exam: SUBJECTIVE: Patient seen and examined at bedside- no acute events overnight; patient states she is feeling better- she is no longer having palpitations or trouble breathing when she goes to the bathroom; she denies any CP/SOB/N/V fevers or chills OBJECTIVE: Vital Signs Period Temp Pulse Resp BP Sys/Valdes Pulse Ox Last 24 Hr 97.3 F-98.2 F 53-71 16-18 122-152/61-77 97-98 PHYSICAL EXAM GENERAL: The patient is awake, alert, and fully oriented, in no acute distress. EYES: PEERLA; EOMI; no scleral icterus. NECK: no JVD; no lymphadenopathy LUNGS: CTA B/L; no rales, rhonchi or wheezing HEART: irregularly irregular, S1, S2 without murmur, rub or gallop. ABDOMEN: Soft, nontender, nondistended, normoactive bowel sounds, no guarding, no rebound, no hepatosplenomegaly, no masses. EXTREMITIES: 2+ pulses, warm, well-perfused, no edema. NEUROLOGICAL: Cranial nerves II through XII grossly intact. Normal speech, gait not observed. PSYCH: Normal mood, normal affect. SKIN: Warm, dry, normal turgor, no rashes or lesions noted LABS Laboratory Results - last 24 hr 09/11/18 09/11/18 06:00 06:00 WBC 3.4 L RBC 3.87 Hgb 11.3 Hct 33.9 MCV 87.6 MCH 29.2 MCHC 33.4 RDW 14.7 Plt Count 152 MPV 9.8 Sodium 141 Potassium 4.1 Chloride 108 H Carbon Dioxide 26 Anion Gap 6 L BUN 20 H Creatinine 0.6 Creat Clearance w eGFR > 60 Random Glucose 82 Calcium 7.8 L Phosphorus 3.4 Magnesium 2.2 HOSPITAL COURSE: Date of Admission:09/10/18 67 y.o female with PMH of Afib, HTN, CVA presented with acute chest pain and palpitations- on arrival first troponin was 0.03 then went up to 0.16 with no EKG changes however patient was in rapid afib with RVR. she had similar episodes like this in the past just a few months ago and had a stress test back in june which showed no evidence of ischemia. she was continued on her home meds of cardizem 120 daily metoprolol 75 daily . while patient was here she was having frequent episodes of palpitations so the cardiologists increased her metoprolol 75 to BID and she was much improved. she will be seeing dry end tester as an outptient for possible ablation as these episodes have been happening frequently to her. she was stable for d.c Date of Discharge: 09/11/18 Minutes to complete discharge: 39 Discharge Summary Reason For Visit: ATRIAL FIBRILLATION, CHEST PAIN Current Active Problems Atrial fibrillation with RVR (Acute) Chest pain (Acute) Atrial fibrillation (Chronic) Condition: Improved - Instructions Diet, Activity, Other Instructions: You came to the hospital with complaints of palpitations and chest pain. We monitored you on the cardiac floor in addition changed some of your medications and your symptoms improved. Please resume all of your medications however: -we increased your metoprolol to 75mg twice a day from once a day -we discontinued your aspirin Please follow up with your primary care physician within one week Please follow up with Dr. Hull within one week, as you will sergey further studies and then procedure *if you begin to have chest pain, palpitations, shortness of breath please return to the emergency room immediately. Referrals: Jareth Hull MD [Staff Physician] - 1 Week Chelsie Tenorio MD [Primary Care Provider] - 1 Week Disposition: HOME - Home Medications Comprehensive Discharge Medication List: Ambulatory Orders Diltiazem Cd [Cardizem Cd -] 120 mg PO DAILY #30 cap.cd.24h 10/15/17 Apixaban [Eliquis] 5 mg PO BID 06/21/18 Lisinopril [Prinivil] 40 mg PO DAILY 06/21/18 Acetaminophen [Tylenol] 650 mg PO QID PRN 08/17/18 Albuterol Sulfate Inhaler - [Ventolin HFA Inhaler -] 1 - 2 inh PO Q4H #1 inhaler 08/17/18 Metoprolol Succinate [Toprol XL -] 75 mg PO BID #60 tab.sr.24h 09/11/18 Problem List - Problems (1) Chest pain Code(s): R07.9 - CHEST PAIN, UNSPECIFIED (2) Atrial fibrillation with RVR Code(s): I48.91 - UNSPECIFIED ATRIAL FIBRILLATION This patient is new to me today: No Emergency Visit: Yes ED Registration Date: 02/21/19 Care time: The patient presented to the Emergency Department on the above date and was hospitalized for further evaluation of their emergent condition. Critical Care patient: No - Discharge Referral Referred to [facility] No
== END 2018-09-11 17:49 | disposition home or self-care (01) | DRG 310 ==
LOC: JER 00:02 → JERBED 01:22 → J4S 15:55 → OBSVTOIN 09-10 08:27
PROVIDERS: ADMIT Internal Medicine; ATTEND Internal Medicine
DX: I48.0 Paroxysmal atrial fibrillation (principal); E88.09 Other disorders of plasma-protein metabolism, not elsewhere classified; I10 Essential (primary) hypertension; Z86.73 Personal history of transient ischemic attack (TIA), and cerebral infarction without residual deficits; Z79.01 Long term (current) use of anticoagulants; I25.2 Old myocardial infarction; R07.9 Chest pain, unspecified
CPT/HCPCS: 36415; 71046-TC-FY; 80048; 80053; 82550; 83735; 84100; 84443; 84484; 85025; 85027; 85610; 93005; 93010; 99283-25; G0378

== ENCOUNTER 2020-04-29 01:17 | Inpatient (IN) | payer OTHER ==
--- OUTSIDE RECORDS SUMMARY | 2020-04-29 01:24 | XMS ---
:1950 Author Organization [facility] Care Team Providers Name Role Phone [facility]9 Unavailable Unavailable Vianney CHRISTINE, [id number] Unavailable Unavailabl ROXANNA Hudson Unavailable Unavailable Re-disclosure Warning The records that you are about to access may contain information from federally- assisted alcohol or drug abuse programs. If such information is present, then the following federally mandated warning applies: This information has been disclosed to you from records protected by federal confidentiality rules (42 CFR part 2). The federal rules prohibit you from making any further disclosure of this information unless further disclosure is expressly permitted by the written consent of the person to whom it pertains or as otherwise permitted by 42 CFR part 2. A general authorization for the release of medical or other information is NOT sufficient for this purpose. The Federal rules restrict any use of the information to criminally investigate or prosecute any alcohol or drug abuse patient.The records that you are about to access may contain highly sensitive health information, the redisclosure of which is protected by Article 27-F of the [facility] Public Health law. If you continue you may haveaccess to information: Regarding HIV / AIDS; Provided by facilities licensed or operated by the [facility] Office of Mental Health; or Provided by the [facility] Office for People With Developmental Disabilities. If such information is present, then the following [facility] mandated warning applies: This information has been disclosed to you from confidential records which are protected by state law. State law prohibits you from making any further disclosure of this information without the specific written consent of the person to whom it pertains, or as otherwise permitted by law. Any unauthorized further disclosure in violation of state law may result in a fine or half-way sentence or both. A general authorization for the release of medical or other information is NOT sufficient authorization for further disclosure. Encounters Encounter Providers Location Date Indications Data Source(s ) Outpatient Attender: SEVERINO, 11/03/2019 Z03.818 [facility] ANNdmitter: 06:00:00 AM Health C are ROXANNA HAQ T [facility] Z03.818 Outpatient Attender: [id number] [facility]VCC 09/07/2019 01:00:43 PM [facility]SI ([facility]) Patient admitted. Outpatient [facility] 04/06/2019 12:00:00 e CW3 ([facility] A28 AM EDT - 04/06/2019 [facility]) 12:00:00 AM EDT Outpatient Attender: [id number] 10/21/2018 09:57:00 [facility] STEVENCHRISTINE EDT Health are LORA, RAdmitter: Corporatio n [id number] Viannye LAWLER Immunizations Vaccine Date Status Description Data Source(s) pneumococcal 06/24/2019 completed eCW3 ([facility] gladys polysaccharide PPV23 10:04:00 AM [facility]) New in 2011. IIV4 04/06/2019 completed eCW3 [facility] Medications Medication Brand Start Product Dose Route Administrative Pharm[facility] Indications Reaction Description Data Name Date Form Instructions Instructions Source(s) Acetaminoph Acetam .0 active Acetami nophe eCW3 en 325 MG inophe 2019 {tabl n 325 MG (Hu dson Oral Tablet n 325 12:00: et_as Rive r MG 00 AM _need Health EDT ed} Care) Acetaminoph Acetam .0 active Acetami nophe eCW3 en 325 MG inophe 2020 {tabl n 325 MG (Hu dson Oral Tablet n 325 12:00: et_as Rive r MG 00 AM _need Health EDT ed} Care) Insurance Providers Payer name Policy type Policy ID Covered Covered libertarian's Policy P dany / Coverage libertarian ID relationship to [facility] type [facility] HIP MEDICARE [id number] [facility] 1 MEDICAID [id number] SP [id number] [place] MEDICARE [id number] SP [id number] MEDICARE [id number] SP [id number] Problems, Conditions, and Diagnoses Code Display Name Description Problem Type Effective Data Dates Source(s) I48.91 Atrial fibrillation, Atrial fibrillation, Problem 11/09 eCW3 ([place] unspecified type unspecified type 12:00:00 AM [facility] EDT [facility]) E74.39 Glucose intolerance Glucose intolerance Problem 019 eCW3 ([place] 12:00:00 AM [facility] EDT Care) K59.00 Constipation Constipation Problem 04/06/2019 eCW3 ([facility] E66.9 Obesity (BMI Obesity (BMI Problem 04/06/2019 eCW3 ([place] 30.0-34.9) 30.0-34.9) [facility]) E78.00 Hypercholesteremia Hypercholesteremia Problem 9 eCW3 ([facility] Z03.818 Encounter for ENCNTR FOR OBS FOR Diagnosis 11/03/2019 [place] [facility] for SUSP EXPSR TO OTH 06:00:00 AM [employer] suspected exposure to BIOLG AGENTS RULED EDT Care other biological OUT Corporat ion agents ruled out Results ID Date Data Source [id number] 02/22/2020 11:31:00 AM EDT [facility] Name Value Range Interpretation Code Description Data Nani rce(s) Supporting Document(s ) SARS-COV-2 [facility] PCR This lab was ordered by [address] [facility] and reported by [facility]. ID Date Data Source [id number] 01/04/2020 11:17:00 AM EDT [facility] Name Value Range Interpretation Code Description Data Nani rce(s) Supporting Document(s ) SARS-COV-2 [facility] PCR This lab was ordered by [address] [facility] and reported by [facility]. ID Date Data Source [id number] 11/03/2019 12:00:00 AM EDT [facility] Name Value Range Interpretation Code Description Data Nani rce(s) Supporting Document(s ) 2019-nCoV [facility] RNA XXX REECE+probe- Imp This lab was ordered by [facility] and reported by [place]. Procedure Social History Code Duration Value Status Description Data Source(s ) Smoking 03/03/2020 12:00:00 Former Smoker completed Former Smoker eCW3 ([facility]) Smoking 11/10/2019 12:00:00 Former Smoker completed Former Smoker eCW3 ([facility]) Vital Signs ID Date Data Source UNK Name Value Range Interpretation Code Description Data Source(s) Diastolic blood 72 mm[Hg] 72 mm[Hg] eCW3 ([facility]) Systolic blood 150 mm[Hg] 150 mm[Hg] eCW3 ([facility]) Body temperature 98.6 [degF] 98.6 [degF] eCW3 ( [facility]) Heart rate 18 /min 18 /min eCW3 ([facility]) Body mass index 30.37 kg/m2 30.37 kg/m2 eCW3 ([facility] (BMI) [Ratio] [facility]) Body weight 156.8 156.8 [lb_av] eCW3 ([facility] on [lb_av] [facility]) Body height 60.25 [in_i] 60.25 [in_i] eCW3 ([facility]) Patient Treatment Plan of Care Planned Activity Planned Date Details Description Data Source (s) Acetaminophen 325 MG Oral 11/10/2019 12:00:00 eCW3 ([facility]) Acetaminophen 325 MG Oral 11/10/2019 12:00:00 eCW3 ([facility])
--- NOTE | 2020-04-29 01:47 | PDOC ---
History of Present Illness - General Chief Complaint: Nausea/Vomiting Stated Complaint: VOMITING Time Seen by Provider: 04/29/20 01:44 - History of Present Illness Initial Comments: 04/29/20 01:46 HPI: 69 y/o F with hx of UT x3, HTN, HLD, AFIB on Eliquis s/p ablation in October 2018 presenting with 1 day of abdominal pain and nausea/vomiting. No specific triggers and not post prandial. Pain is epigastric and non radiating. She does not recall previous episodes. Of note she reports increased straining with BMs and took prune juice today. However since that time she reports 10 episodes of emesis with persistent nausea. Reports 2 episodes of BM today. Denies fever, chills, sob, cp, dysuria, blood per rectum, cough. PMHx: as noted above ROS: as noted SHx: Denies tobacco use; no alcohol use; no rec drugs Allergies: NKDA ROS: GENERAL/CONSTITUTIONAL: No fever or chills. No weakness. HEAD, EYES, EARS, NOSE AND THROAT: No change in vision. No ear pain or discharge. No sore throat. CARDIOVASCULAR: No chest pain or shortness of breath RESPIRATORY: No cough, wheezing, or hemoptysis. GASTROINTESTINAL: +nausea, vomiting; no diarrhea or constipation. GENITOURINARY: No dysuria, frequency, or change in urination. MUSCULOSKELETAL: No joint or muscle swelling or pain. No neck or back pain. SKIN: No rash NEUROLOGIC: No headache, vertigo, loss of consciousness, or change in strength/sensation. ENDOCRINE: No increased thirst. No abnormal weight change HEMATOLOGIC/LYMPHATIC: No anemia, easy bleeding, or history of blood clots. ALLERGIC/IMMUNOLOGIC: No hives or skin allergy. PE: GENERAL: Awake, alert, and fully oriented, moderate acute distress HEAD: No signs of trauma, normocephalic, atraumatic EYES: EOMI, sclera anicteric, conjunctiva clear ENT: Auricles normal inspection, hearing grossly normal, nares patent, shaggy pharynx clear without exudates. Moist mucosa NECK: Normal ROM, no lymphadenopathy LUNGS: No increased work of breathing, symmetrical chest rise, clear to auscultation bilaterally, no wheezes, crackles or rhonchi HEART: Regular rate, regular rhythm, normal S1 and S2, no murmur, peripheral pulses 2+ and equal bilaterally. ABDOMEN: Soft, nondistended, mild epigastric tpp. No guarding, no rebound. No masses. No CVAT MUSCULOSKELETAL: FROM NEUROLOGICAL: Cranial nerves II through XII grossly intact. Normal speech, stable gait, no focal sensorimotor deficits SKIN: Warm, Dry, normal turgor, no rashes or lesions noted Past History - Medical History Allergies/Adverse Reactions: Allergies Allergy/AdvReac Type Severity Reaction Status Date / Time No Known Allergies Allergy Verified 04/29/20 01:29 Home Medications: Ambulatory Orders Diltiazem Cd [Cardizem Cd -] 120 mg PO DAILY #30 cap.cd.24h 10/15/17 Apixaban [Eliquis] 5 mg PO BID 06/21/18 Lisinopril [Prinivil] 40 mg PO DAILY 06/21/18 Omeprazole 20 mg PO DAILY 09/28/19 Meloxicam 15 mg PO DAILY 09/29/19 Metoprolol Succinate [Toprol XL -] 50 mg PO DAILY #30 tab.sr.24h 09/29/19 Anemia: No Asthma: No Cancer: No Cardiac Disorders: Yes (afib) CVA: Yes (X2) COPD: No CHF: No Dementia: No Diabetes: No GI Disorders: Yes (constipation) Disorders: No HTN: Yes Hypercholesterolemia: Yes Liver Disease: No Seizures: No Thyroid Disease: No - Surgical History Abdominal Surgery: No Appendectomy: Yes Cardiac Surgery: No Cholecystectomy: No Lung Surgery: No Neurologic Surgery: No Orthopedic Surgery: Yes (left wrist, left knee and left ankle) - Reproductive History Is Patient Now?: No - Immunization History Immunization Up to Date: Yes - Psycho-Social/Smoking History Smoking History: Never smoked Have you smoked in the past 12 months: No Number of Cigarettes Smoked Daily: 10 If you are a former smoker, when did you quit?: 30 years ago Information on smoking cessation initiated: No - Substance Abuse Hx (Audit-C & DAST Scrn) How often the patient has a drink containing alcohol: Never Score: In Men: 4 or > Positive; In Women: 3 or > Positive: 0 Screen Result (Pos requires Nsg. Audit-10AR): Negative In the last yr the pt used illegal drug/Rx for NonMed reason: No Score: Yes response is considered Positive: 0 Screen Result (Positive result requires Nsg. DAST-10): Negative *Physical Exam - Vital Signs Last Vital Signs Temp Pulse Resp BP Pulse Ox 98.9 F 112 H 20 182/78 H 99 04/29/20 01:29 04/29/20 01:29 04/29/20 01:29 04/29/20 01:29 04/29/20 01:29 ED Treatment Course - LABORATORY CBC & Chemistry Diagram: 04/29/20 01:51 04/29/20 01:51 Medical Decision Making - Medical Decision Making 04/29/20 04:00 69 y/o F with hx of UT x3, HTN, HLD, AFIB on Eliquis s/p ablation in October 2018 presenting with 1 day of abdominal pain and nausea/vomiting. HR 112 BP 182/78 Pe with mild epigastric ttp. DDx includes sbo, gastritic, enteritis, uti, atypical acs -cbc, cmp, coags, card prof, lipase, ua, ekg, cxr -ct abd/pel -ofirmev, zofran, ivf, pepcid, maalox 04/29/20 04:05 will replete mag 04/29/20 06:17 ct with no acute pathology labs wnl patient still with persistent abd pain and nausea/vomiting 2mg miorphine admit Discharge - Discharge Information Problems reviewed: Yes Clinical Impression/Diagnosis: Abdominal pain Nausea & vomiting Qualifiers: Vomiting Intractability: intractable Condition: Fair - Admission Yes - Follow up/Referral Referrals: Melinda Medel DO [Primary Care Provider] - - Patient Discharge Instructions - Post Discharge Activity
[2020-04-29] MEDS ORDERED: ONDANSETRON 4 MG/2 ML VIAL IVPUSH ONE (01:55)
[2020-04-29] MEDS ORDERED: ACETAMINOPHEN 1000 MG/100 ML VIAL (NON FORMULARY) IVPB ONE (01:58)
[2020-04-29] MEDS ORDERED: SODIUM CHLORIDE 1,000 ML IV STA (01:58)
[2020-04-29 02:00] LABS: BASO % 0.4 % (0-2.0); EOS % 0.1 % (0-4.5); HEMATOCRIT 35.6 % (32.4-45.2); HEMOGLOBIN 11.7 GM/dL (10.7-15.3); LYMPH % 8.1 % (8-40); MCH 28.5 pg (25.7-33.7); MCHC 32.8 g/dl (32.0-36.0); MEAN CELL VOLUME 86.9 fl (80-96); MEAN PLT VOLUME 9.5 fl (7.5-11.1); NEUT % 88.4 % (42.8-82.8); PLATELET COUNT 160 K/MM3 (134-434); RDW 14.3 % (11.6-15.6); WHITE BLOOD COUNT 10.9 K/mm3 (4.0-10.0)
[2020-04-29] MEDS ORDERED: ACETAMINOPHEN INJECTION 100 ML IVPB ONE (02:04)
--- NOTE | 2020-04-29 02:06 | PDOC ---
Attending Attestation - Resident Resident Name: Luis Alberto Ariza - ED Attending Attestation I have performed the following: I have examined & evaluated the patient, The case was reviewed & discussed with the resident, I agree w/resident's findings & plan - HPI HPI: 04/29/20 05:34 Pt comes with nausea and vomiting. She ate bread cheese and coffee fro breakfast then rice beans and chicken for lunch and then she realized she felt bloated and constipated and she took prunes and pineapple and celery and other stuff and the prunes made her vomit. Pt comes with tachycardia and epigastric pain - Physicial Exam PE: 04/29/20 05:35 Pt is afebrile tachycardic and HTN heart tachy reg rhythm lungs CTA B abd diffuse minimal pain no flank pain ext: no c/c/e neuro exam normal - Medical Decision Making 04/29/20 05:12 Patient Name: ZULLY INFANTE THIS IS A PRELIMINARY REPORT DATE OF SERVICE: 2020-04-29 04:33:25 IMAGES: 514 EXAM: CT ABDOMEN WITH CONTRAST AND CT PELVIS WITH CONTRAST HISTORY: 69-Year-Old Female With Abdominal Pain COMPARISON: None. Contrast: 100 mL Omnipaque 350 intravenous contrast FINDINGS: Mild basilar atelectasis. Mild cardiomegaly with calcified coronary artery arteriosclerosis. Small hiatal hernia. Liver gallbladder pancreas spleen adrenal glands appear unremarkable. Bilateral renal cortical cysts. Mild arteriosclerosis of the abdominal pelvic arterial vasculature. Stomach and small bowel appear unremarkable. Appendix is surgically absent. Diverticulosis. No diverticulitis. Status post hysterectomy. Bladder appears unremarkable. No free air. No free fluid. No abscess. Moderate degenerative disc disease. Moderate degenerative joint disease of the lower lumbar facets. Mild to moderate multilevel spinal canal narrowing and neural foraminal narrowing in the middle and lower lumbar levels. IMPRESSION: Mild cardiomegaly with calcified coronary artery arteriosclerosis. Small hiatal hernia. Bilateral renal cortical cysts. Diverticulosis. Mild to moderate multilevel spinal canal narrowing and neural foraminal narrowing in the middle and lower lumbar levels. 04/29/20 05:36 Pt remains tachy at 101bpm, even though she received 1 L IVF and she has been pain controlled UA pending Pt has normal labs, though she has elevated neutrophil count. 04/29/20 05:38 Pt will be admitted for her abdominal discomfort, persistent tachy and for further evaluation Discharge - Discharge Information Problems reviewed: Yes Clinical Impression/Diagnosis: Nausea & vomiting Qualifiers: Vomiting Intractability: intractable Abdominal pain Qualifiers: Abdominal location: generalized Qualified Code(s): R10.84 - Generalized abdominal pain Condition: Guarded - Follow up/Referral Referrals: Melinda Medel DO [Primary Care Provider] - - Patient Discharge Instructions - Post Discharge Activity
[2020-04-29 02:17] LABS: INR 1.13 (0.83-1.09); PROTHROMBIN TIME (PATIENT) 13.3 SEC (9.7-13.0)
[2020-04-29 02:19] LABS: ACTIVATED PTT 32.7 SECONDS (25.2-36.5)
[2020-04-29 02:29] LABS: ALBUMIN 3.7 g/dl (3.4-5.0); ALK PHOS 74 U/L (45-117); BILIRUBIN,TOTAL 0.2 mg/dL (0.2-1); BLOOD UREA NITROGEN 16.6 mg/dL (7-18); CALCIUM 8.5 mg/dL (8.5-10.1); CO2 27 mmol/L (21-32); CREATININE 0.6 mg/dL (0.55-1.3); GLUCOSE,RANDOM 175 mg/dL (74-106); LIPASE 77 U/L (73-393); MAGNESIUM 1.7 mg/dL (1.8-2.4); POTASSIUM 3.7 mmol/L (3.5-5.1); SGOT/AST 27 U/L (15-37); SGPT/ALT 20 U/L (13-61); SODIUM 138 mmol/L (136-145); TOT PROT 7.6 g/dl (6.4-8.2)
[2020-04-29 02:57] LABS: ANION GAP 8 MMOL/L (8-16); CHLORIDE 102 mmol/L (98-107)
[2020-04-29] MEDS ORDERED: MAGNESIUM SULF 50% (8.12 MEQ/2 ML-1 GM VIAL) IVPB ONE (02:58)
[2020-04-29] MEDS ORDERED: MAGNESIUM 1GM/D5W - 1 GM/100 ML IVPB IVPB ONE (03:54)
[2020-04-29] MEDS ORDERED: MAG HYDROX/AL HYDROX/SIMETH 30 ML UNIT-DOSE CUP PO ONE (03:56)
[2020-04-29] MEDS ORDERED: FAMOTIDINE 20 MG/50 ML IVPB 20 MG/50 ML MG IVPB ONE ×2 (03:56→04:19)
[2020-04-29] MEDS ORDERED: MAG HYDROX/AL HYDROX/SIMETH 30 ML UNIT-DOSE CUP ONE (04:19)
[2020-04-29] MEDS ORDERED: METOCLOPRAMIDE HCL INJECTION 10 MG/2 ML VIAL IVPUSH ONE (05:07)
[2020-04-29 05:33] LABS: EPI CELLS 2 /uL (0-25.1); HYALINE CASTS 0 /uL (0-3.1); URINE APPEARANCE CLEAR; URINE BACTERIA 50 /uL (0-1359); URINE BILIRUBIN NEGATIVE (NEGATIVE); URINE COLOR YELLOW; URINE GLUCOSE (UA) TRACE (NEGATIVE); URINE KETONE TRACE (NEGATIVE); URINE LEUK ESTERASE NEGATIVE (NEGATIVE); URINE NITRITE NEGATIVE (NEGATIVE); URINE PROTEIN NEGATIVE (NEGATIVE); URINE RBC 18 /uL (0-23.9); URINE UROBILINOGEN 0.2 mg/dL (0.2-1.0); URINE WBC 0 /uL (0-25.8)
[2020-04-29] MEDS ORDERED: morphine CARPU-JECT 2 MG/1 ML DISP.SYRIN IVPUSH ONE (05:35)
[2020-04-29] MEDS ORDERED: MORPHINE SULFATE 2 MG/ML VIAL ONE (05:50)
[2020-04-29 09:12] LABS: TRIGLYCERIDES 61 mg/dL (0-150)
[2020-04-29] MEDS ORDERED: ONDANSETRON 4 MG/2 ML VIAL IVPUSH PRN (11:51)
--- NOTE | 2020-04-29 11:54 | HP ---
CHIEF COMPLAINT: Nausea, Vomiting, Abdominal pain PCP: Arianna Tate HISTORY OF PRESENT ILLNESS: 69 yo hebrew speaking female with PMH HTN, HLD, constipation, Afib on eliquis s/p ablation 2018 who came into the ED c/o 1 day h/o abdominal pain and vausea/vomiting. Patient endorses h/o constipation, which is alleviated with use of a prune juice based "smoothie" that she drinks regularly. Yesterday, she took this smoothie (water based, no dairy) and felt nauseous afterwards. Patient endorses 4 episodes of NBNB vomiting last night and 2 episodes of vomiting today in the ED. Patient also endorses associated dizziness and abdominal pain. She has had no similar episodes in the past. Patient has been able to pass gas and had a BM yesterday. Denies fever, chills, sob, cp, dysuria, blood per rectum, cough. Patient endorses that she has a history of "strong palpitations" in the past which has gotten worse since she began to feel sick. In the ED, pt was treated with zofran, a GI cocktail, morphine and IV fluids. CT AP was negative for acute pathology. Recent Travel: PAST MEDICAL HISTORY: see HPI PAST SURGICAL HISTORY: appendectomy Hysterectomy Social History: Smoking: denies Alcohol: denies Drugs: denies Allergies No Known Allergies Allergy (Verified 04/29/20 01:29) HOME MEDICATIONS: Home Medications Medication Instructions Recorded Diltiazem Cd [Cardizem Cd -] 120 mg PO DAILY #30 cap.cd.24h 10/15/17 Apixaban [Eliquis] 5 mg PO BID 06/21/18 Lisinopril [Prinivil] 40 mg PO DAILY 06/21/18 Omeprazole 20 mg PO DAILY 09/28/19 Meloxicam 15 mg PO DAILY 09/29/19 Metoprolol Succinate [Toprol XL -] 50 mg PO DAILY #30 tab.sr.24h 09/29/19 REVIEW OF SYSTEMS Negative except for HPI PHYSICAL EXAMINATION Vital Signs - 24 hr 04/29/20 04/29/20 04/29/20 01:29 05:36 07:30 Temperature 98.9 F 98.8 F 97.9 F Pulse Rate 112 H Pulse Rate [ 94 H 102 H Right Radial] Respiratory 20 18 18 Rate Blood Pressure 182/78 H Blood Pressure 175/77 H 172/77 H [Left Arm] O2 Sat by Pulse 99 97 100 Oximetry (%) 04/29/20 11:20 Temperature Pulse Rate Pulse Rate [ 95 H Right Radial] Respiratory 18 Rate Blood Pressure Blood Pressure 171/71 H [Left Arm] O2 Sat by Pulse 100 Oximetry (%) GENERAL: Awake, alert, and fully oriented, in no acute distress. HEAD: Normal with no signs of trauma. EYES: Pupils equal, round and reactive to light, extraocular movements intact, sclera anicteric, conjunctiva clear. No lid lag. LUNGS: Breath sounds equal, clear to auscultation bilaterally. No wheezes, and no crackles. No accessory muscle use. HEART: Regular rate and rhythm, normal S1 and S2 without murmur, rub or gallop. ABDOMEN: Soft, Mild TTP in the epigastrium, not distended, normoactive bowel sounds. LOWER EXTREMITIES: 2+ pulses, warm, well-perfused. No calf tenderness. No peripheral edema. NEUROLOGICAL: Cranial nerves II-X intact. Normal speech. Laboratory Results - last 24 hr 04/29/20 04/29/20 04/29/20 01:51 01:51 01:51 WBC 10.9 H RBC 4.10 Hgb 11.7 Hct 35.6 MCV 86.9 MCH 28.5 MCHC 32.8 RDW 14.3 Plt Count 160 D MPV 9.5 Absolute Neuts (auto) 9.6 H Neutrophils % 88.4 H D Lymphocytes % 8.1 D Monocytes % 3.0 L Eosinophils % 0.1 D Basophils % 0.4 Nucleated RBC % 0 PT with INR 13.30 H INR 1.13 H PTT (Actin FS) 32.7 Sodium 138 Potassium 3.7 Chloride 102 Carbon Dioxide 27 Anion Gap 8 BUN 16.6 Creatinine 0.6 Est GFR (CKD-EPI)AfAm 106.28 Est GFR (CKD-EPI)NonAf 91.70 Random Glucose 175 H Lactic Acid Calcium 8.5 Magnesium 1.7 L Total Bilirubin 0.2 AST 27 ALT 20 Alkaline Phosphatase 74 Creatine Kinase 140 Troponin I < 0.02 Total Protein 7.6 Albumin 3.7 Triglycerides 61 Lipase 77 Urine Color Urine Appearance Urine pH Ur Specific Rudd Urine Protein Urine Glucose (UA) Urine Ketones Urine Blood Urine Nitrite Urine Bilirubin Urine Urobilinogen Ur Leukocyte Esterase Urine WBC (Auto) Urine RBC (Auto) Urine Casts (Auto) U Epithel Cells (Auto) Urine Bacteria (Auto) 04/29/20 04/29/20 04:50 07:30 WBC RBC Hgb Hct MCV MCH MCHC RDW Plt Count MPV Absolute Neuts (auto) Neutrophils % Lymphocytes % Monocytes % Eosinophils % Basophils % Nucleated RBC % PT with INR INR PTT (Actin FS) Sodium Potassium Chloride Carbon Dioxide Anion Gap BUN Creatinine Est GFR (CKD-EPI)AfAm Est GFR (CKD-EPI)NonAf Random Glucose Lactic Acid 1.0 Calcium Magnesium Total Bilirubin AST ALT Alkaline Phosphatase Creatine Kinase Troponin I Total Protein Albumin Triglycerides Lipase Urine Color Yellow Urine Appearance Clear Urine pH 8.0 D Ur Specific Rudd 1.011 Urine Protein Negative Urine Glucose (UA) Trace Urine Ketones Trace H Urine Blood Trace Urine Nitrite Negative Urine Bilirubin Negative Urine Urobilinogen 0.2 Ur Leukocyte Esterase Negative Urine WBC (Auto) 0 Urine RBC (Auto) 18 Urine Casts (Auto) 0 U Epithel Cells (Auto) 2 Urine Bacteria (Auto) 50 ASSESSMENT/PLAN: 69 yo hebrew speaking female with PMH HTN, HLD, constipation, Afib on eliquis s/p ablation 2018 who came into the ED c/o 1 day h/o abdominal pain and nausea/vomiting. CTAP negative for pathology in ED #Nausea/Vomiting/epigastric abdominal pain -possibly 2/2 gastritis vs gastroenteritis vs constipation -CTAP w/ PO contrast shows hiatal hernia, diverticulosis w/o evidence of SBO or ileus per [facility]; awaiting final read -s/p zofran, pain control in ED -IVF: NS @ 75 -zofran PRN -protonix -No evidence of abdominal distension; abdominal pain mild and primarily epigastric. will feed for now. Low threshold for NPO if patient becomes worse after eating. #HTN -c/w home lisinopril #Afib -c/w home eliquis -c/w home cardizem -c/w home metoprolol -s/p loop recorder implantation -unclear whether the patient's palpitations worsened before or after she began to vomit. -trop negative x1, will rpt -EKG from sinus tach to NSR on rpt. -cardio consult for assistance with this matter: Pt follows with [facility] #FEN -INF w/ NS @ 73 -lytes wnl, replete PRN -sodium controlled diet #Prophy -GI: protonix -DVT: on Eliquis, will continue #Dispo -admit med surg Family Medical History Family History: Denies Visit type - Medication Review Med list reviewed for High Risk Meds patients 65 and older: Yes - Emergency Visit Emergency Visit: Yes ED Registration Date: 04/29/20 Care time: The patient presented to the Emergency Department on the above date and was hospitalized for further evaluation of their emergent condition. - New Patient This patient is new to me today: Yes Date on this admission: 04/29/20 - Critical Care Critical Care patient: No
[2020-04-29] MEDS ORDERED: SODIUM CHLORIDE 1,000 ML IV SCH (12:00)
[2020-04-29] MEDS ORDERED: PANTOPRAZOLE 40 MG TABLET ONE (12:13)
[2020-04-29] MEDS ORDERED: LISINOPRIL 20 MG TABLET ONE (12:14)
[2020-04-29] MEDS ORDERED: APIXABAN 5 MG TABLET ONE (12:14)
[2020-04-29] MEDS ORDERED: dilTIAZem HCL 60 MG TABLET ONE (12:15)
[2020-04-29] MEDS: PANTOPRAZOLE 40 MG TABLET PO SCH (12:30)
[2020-04-29] MEDS: APIXABAN 5 MG TABLET PO SCH ×2 (12:30→21:24)
[2020-04-29] MEDS: LISINOPRIL 20 MG TABLET PO SCH (12:30)
--- NOTE | 2020-04-29 15:35 | EKG ---
Test Reason : Blood Pressure : / mmHG Vent. Rate : 093 BPM Atrial Rate : 093 BPM P-R Int : 152 ms QRS Dur : 116 ms QT Int : 380 ms P-R-T Axes : 042 008 060 degrees QTc Int : 472 ms NORMAL SINUS RHYTHM LEFT VENTRICULAR HYPERTROPHY WITH QRS WIDENING NONSPECIFIC T WAVE ABNORMALITY PROLONGED QT ABNORMAL ECG WHEN COMPARED WITH ECG OF 29-APR-2020 01:35, NO SIGNIFICANT CHANGE WAS FOUND Confirmed by TAN WONG MD ([id number]) on 04/29/2020 3:35:29 PM Referred By: Confirmed By:TAN WONG MD
[2020-04-29 18:36] VITALS: BMI 29.6
[2020-04-29] MEDS ORDERED: ACETAMINOPHEN 325 MG TABLET (FP) PO PRN (19:09)
--- NOTE | 2020-04-30 06:59 | EKG ---
Test Reason : Blood Pressure : / mmHG Vent. Rate : 103 BPM Atrial Rate : 103 BPM P-R Int : 168 ms QRS Dur : 110 ms QT Int : 362 ms P-R-T Axes : 087 016 076 degrees QTc Int : 474 ms SINUS TACHYCARDIA MINIMAL VOLTAGE CRITERIA FOR LVH, MAY BE NORMAL VARIANT BORDERLINE ECG WHEN COMPARED WITH ECG OF 28-SEP-2019 16:20, SINUS RHYTHM HAS REPLACED ATRIAL FIBRILLATION CLINICAL CORRELATION IS RECOMMENDED Confirmed by MARVIN FRENCH, TAN ([id number]) on 04/30/2020 6:59:02 AM Referred By: Confirmed By:TAN WONG MD
[2020-04-30 08:09] LABS: HEMATOCRIT 36.3 % (32.4-45.2); HEMOGLOBIN 11.6 GM/dL (10.7-15.3); MCH 27.7 pg (25.7-33.7); MCHC 31.9 g/dl (32.0-36.0); MEAN CELL VOLUME 86.7 fl (80-96); MEAN PLT VOLUME 9.6 fl (7.5-11.1); PLATELET COUNT 163 K/MM3 (134-434); RBC 4.19 M/mm3 (3.60-5.2); RDW 14.6 % (11.6-15.6); WHITE BLOOD COUNT 4.6 K/mm3 (4.0-10.0)
[2020-04-30 08:31] LABS: BILIRUBIN,TOTAL 0.8 mg/dL (0.2-1); BLOOD UREA NITROGEN 10.1 mg/dL (7-18); CALCIUM 7.6 mg/dL (8.5-10.1); CREATININE 0.5 mg/dL (0.55-1.3); MAGNESIUM 2.2 mg/dL (1.8-2.4); PHOSPHOROUS 2.4 mg/dL (2.5-4.9); POTASSIUM 3.5 mmol/L (3.5-5.1); TOT PROT 6.5 g/dl (6.4-8.2)
--- NOTE | 2020-04-30 08:34 | PN ---
Progress Note, Physician History of Present Illness: 69 yo mongolian speaking female with PMH HTN, HLD, constipation, Afib on eliquis s/p ablation 2018 who came into the ED c/o 1 day h/o abdominal pain and nausea/vomiting. CTAP negative for pathology in ED - Current Medication List Current Medications: Active Medications Acetaminophen (Tylenol -) 650 mg PO Q6H PRN PRN Reason: PAIN LEVEL 1-5 Last Admin: 04/29/20 21:24 Dose: 650 mg Documented by: Apixaban (Eliquis -) 5 mg PO BID [facility] Last Admin: 04/29/20 21:24 Dose: 5 mg Documented by: Diltiazem HCl (Cardizem Cd -) 120 mg PO DAILY [facility] Last Admin: 04/29/20 12:30 Dose: 120 mg Documented by: Influenza Virus Vaccine (Flulaval Quad Syr) 60 mcg IM .ONCE ONE Stop: 04/29/20 15:37 Lisinopril (Prinivil) 40 mg PO DAILY [facility] Last Admin: 04/29/20 12:30 Dose: 40 mg Documented by: Metoprolol Succinate (Toprol Xl -) 50 mg PO DAILY [facility] Last Admin: 04/29/20 12:58 Dose: 50 mg Documented by: Ondansetron HCl (Zofran Injection) 4 mg IVPUSH Q6H PRN PRN Reason: NAUSEA Last Admin: 04/29/20 12:58 Dose: 4 mg Documented by: Pantoprazole Sodium (Protonix -) 40 mg PO DAILY [facility] Last Admin: 04/29/20 12:30 Dose: 40 mg Documented by: - Objective Vital Signs: Vital Signs Temperature 99 F 04/30/20 07:00 Pulse Rate 80 04/30/20 07:00 Respiratory Rate 20 04/30/20 07:00 Blood Pressure 142/78 04/30/20 07:00 O2 Sat by Pulse Oximetry (%) 98 04/30/20 07:00 Labs: CBC, BMP 04/30/20 06:50 04/30/20 06:50 INR, PTT INR 1.13 (0.83-1.09) H 04/29/20 01:51 Problem List - Problems (1) HLD (hyperlipidemia) Code(s): E78.5 - HYPERLIPIDEMIA, UNSPECIFIED (2) Suspected COVID-19 virus infection Code(s): Z20.828 - CONTACT W AND EXPOSURE TO OTH VIRAL COMMUNICABLE DISEASES (3) Abdominal pain Code(s): R10.9 - UNSPECIFIED ABDOMINAL PAIN Qualifiers: Abdominal location: generalized Qualified Code(s): R10.84 - Generalized abdominal pain (4) Prophylactic measure Code(s): Z29.9 - ENCOUNTER FOR PROPHYLACTIC MEASURES, UNSPECIFIED (5) Atrial fibrillation Code(s): I48.91 - UNSPECIFIED ATRIAL FIBRILLATION Qualifiers: Atrial fibrillation type: chronic (6) HTN (hypertension) Code(s): I10 - ESSENTIAL (PRIMARY) HYPERTENSION (7) History of stroke Code(s): Z86.73 - PRSNL HX OF TIA (TIA), AND CEREB INFRC W/O RESID DEFICITS
[2020-04-30] MEDS ORDERED: PT OWN MED DRAWER 7, Y5N ONE (09:10)
[2020-04-30] MEDS: LISINOPRIL 20 MG TABLET PO SCH (09:17)
[2020-04-30] MEDS: PANTOPRAZOLE 40 MG TABLET PO SCH (09:17)
[2020-04-30] MEDS: APIXABAN 5 MG TABLET PO SCH (09:17)
[2020-04-30] MEDS ORDERED: POTASSIUM CHLORIDE TABS 20 MEQ TABLET.ER (FP) PO ONE (10:00)
--- NOTE | 2020-04-30 13:00 | CON.CARD ---
Cardiology Consult (text) - Consultation Consultation Note: Consult Specialty:: cardio - History of Present Illness Chief Complaint: palpitations, vomiting History of Present Illness: 69F h/o afib s/p ablation 02/2020, HTN, CVA p/w vomiting, high blood pressure and palpitations. sees Dr Hull for cardio. She thinks she ate something that didn't agree with her the day of admission and felt nauseated afterwards and started vomiting, 4 episodes prior to arriving and two in the ER. While she was vomiting she felt her BP was high and that her heart was going fast as well as abdominal pain, dizziness. N/V now resolved, wants to go home. 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) Cardio/Vascular: Yes: HTN ...: No - Alcohol/Substance Use Hx Alcohol Use: No History of Substance Use: reports: None - Smoking History Smoking history: Former smoker Have you smoked in the past 12 months: No Aproximately how many cigarettes per day: 10 If you are a former smoker, when did you quit?: 1997 - Social History ADL: Independent Occupation: retired Home Medications - Allergies Allergies/Adverse Reactions: Allergies Allergy/AdvReac Type Severity Reaction Status Date / Time No Known Allergies Allergy Verified 04/29/20 01:29 - Home Medications Home Medications: Home Medications Medication Instructions Recorded Diltiazem Cd [Cardizem Cd -] 120 mg PO DAILY #30 cap.cd.24h 10/15/17 Apixaban [Eliquis] 5 mg PO BID 06/21/18 Lisinopril [Prinivil] 40 mg PO DAILY 06/21/18 Omeprazole 20 mg PO DAILY 09/28/19 Meloxicam 15 mg PO DAILY 09/29/19 Metoprolol Succinate [Toprol XL -] 50 mg PO DAILY #30 tab.sr.24h 09/29/19 Family Disease History - Family Disease History Family Disease History: Other: Mother (HTN) Review of Systems - Review of Systems Constitutional: denies: Chills, Fever Eyes: denies: Eye Pain HENT: denies: Nasal Congestion Neck: denies: Stiffness Cardiovascular: reports: Palpitations. denies: Edema Respiratory: denies: Orthopnea, PND Gastrointestinal: denies: Diarrhea, Rectal Bleeding Genitourinary: denies: Burning, Hematuria Musculoskeletal: denies: Muscle Pain Integumentary: denies: Rash Neurological: denies: Numbness, Seizure, Syncope Endocrine: denies: Excessive Sweating Hematology/Lymphatic: denies: Excessive Bleeding Vital Signs Period Temp Pulse Resp BP Sys/Valdes Pulse Ox Last 24 Hr 97.6 F-99 F 70-94 18-20 131-168/70-83 96-100 Constitutional: Yes: Well Nourished, No Distress Eyes: No: Sclera Icterus HENT: No: Nasal Congestion Neck: No: Decreased ROM Respiratory: Yes: CTA Bilaterally. No: Accessory Muscle Use Gastrointestinal: Yes: Normal Bowel Sounds. No: Distention, Hepatomegaly, Palpable Mass, Tenderness Cardiovascular: Yes: Regular Rate and Rhythm JVD: No Carotid Bruit: No PMI: Non-Displaced Heart Sounds: Yes: S1, S2. No: Gallop Murmur: No: Systolic Murmur, Diastolic Murmur Musculoskeletal: Yes: Other (No kyphosis) Extremities: No: Cool, Cyanosis Edema: No Peripheral Pulses: 2+ Left Carotid, 2+ Right Carotid, 2+ Left Doralis Pedis, 2+ Right Dorsalis Pedis Integumentary: No: Jaundice Neurological: Yes: Alert, Oriented (x3) Psychiatric: No: Agitated Laboratory Last Values WBC 4.6 K/mm3 (4.0-10.0) 04/30/20 06:50 RBC 4.19 M/mm3 (3.60-5.2) 04/30/20 06:50 Hgb 11.6 GM/dL (10.7-15.3) 04/30/20 06:50 Hct 36.3 % (32.4-45.2) 04/30/20 06:50 MCV 86.7 fl (80-96) 04/30/20 06:50 MCH 27.7 pg (25.7-33.7) 04/30/20 06:50 MCHC 31.9 g/dl (32.0-36.0) L 04/30/20 06:50 RDW 14.6 % (11.6-15.6) 04/30/20 06:50 Plt Count 163 K/MM3 (134-434) 04/30/20 06:50 MPV 9.6 fl (7.5-11.1) 04/30/20 06:50 Absolute Neuts (auto) 9.6 K/mm3 (1.5-8.0) H 04/29/20 01:51 Neutrophils % 88.4 % (42.8-82.8) H D 04/29/20 01:51 Lymphocytes % 8.1 % (8-40) D 04/29/20 01:51 Monocytes % 3.0 % (3.8-10.2) L 04/29/20 01:51 Eosinophils % 0.1 % (0-4.5) D 04/29/20 01:51 Basophils % 0.4 % (0-2.0) 04/29/20 01:51 Nucleated RBC % 0 % (0-0) 04/29/20 01:51 PT with INR 13.30 SEC (9.7-13.0) H 04/29/20 01:51 INR 1.13 (0.83-1.09) H 04/29/20 01:51 PTT (Actin FS) 32.7 SECONDS (25.2-36.5) 04/29/20 01:51 Sodium 140 mmol/L (136-145) 04/30/20 06:50 Potassium 3.5 mmol/L (3.5-5.1) 04/30/20 06:50 Chloride 108 mmol/L (98-107) H 04/30/20 06:50 Carbon Dioxide 27 mmol/L (21-32) 04/30/20 06:50 Anion Gap 5 MMOL/L (8-16) L 04/30/20 06:50 BUN 10.1 mg/dL (7-18) 04/30/20 06:50 Creatinine 0.5 mg/dL (0.55-1.3) L 04/30/20 06:50 Est GFR (CKD-EPI)AfAm 112.86 04/30/20 06:50 Est GFR (CKD-EPI)NonAf 97.37 04/30/20 06:50 Random Glucose 76 mg/dL (74-106) 04/30/20 06:50 Lactic Acid 1.0 mmol/L (0.4-2.0) 04/29/20 07:30 Calcium 7.6 mg/dL (8.5-10.1) L 04/30/20 06:50 Phosphorus 2.4 mg/dL (2.5-4.9) L 04/30/20 06:50 Magnesium 2.2 mg/dL (1.8-2.4) 04/30/20 06:50 Total Bilirubin 0.8 mg/dL (0.2-1) 04/30/20 06:50 AST 20 U/L (15-37) 04/30/20 06:50 ALT 16 U/L (13-61) 04/30/20 06:50 Alkaline Phosphatase 68 U/L (45-117) 04/30/20 06:50 LD Total 159 U/L (84-246) 04/30/20 06:50 Creatine Kinase 140 U/L (26-192) 04/29/20 01:51 Troponin I < 0.02 ng/ml (0.00-0.05) 04/29/20 11:51 C-Reactive Protein 0.3 MG/DL (0.00-0.3) 04/30/20 06:50 Total Protein 6.5 g/dl (6.4-8.2) 04/30/20 06:50 Albumin 3.0 g/dl (3.4-5.0) L 04/30/20 06:50 Triglycerides 61 mg/dL (0-150) 04/29/20 01:51 Lipase 77 U/L (73-393) 04/29/20 01:51 Urine Color Yellow 04/29/20 04:50 Urine Appearance Clear 04/29/20 04:50 Urine pH 8.0 (5.0-8.0) D 04/29/20 04:50 Ur Specific [place] 1.011 (1.010-1.035) 04/29/20 04:50 Urine Protein Negative (NEGATIVE) 04/29/20 04:50 Urine Glucose (UA) Trace (NEGATIVE) 04/29/20 04:50 Urine Ketones Trace (NEGATIVE) H 04/29/20 04:50 Urine Blood Trace (NEGATIVE) 04/29/20 04:50 Urine Nitrite Negative (NEGATIVE) 04/29/20 04:50 Urine Bilirubin Negative (NEGATIVE) 04/29/20 04:50 Urine Urobilinogen 0.2 mg/dL (0.2-1.0) 04/29/20 04:50 Ur Leukocyte Esterase Negative (NEGATIVE) 04/29/20 04:50 Urine WBC (Auto) 0 /uL (0-25.8) 04/29/20 04:50 Urine RBC (Auto) 18 /uL (0-23.9) 04/29/20 04:50 Urine Casts (Auto) 0 /uL (0-3.1) 04/29/20 04:50 U Epithel Cells (Auto) 2 /uL (0-25.1) 04/29/20 04:50 Urine Bacteria (Auto) 50 /uL (0-1359) 04/29/20 04:50 COVID-19 ([facility]) Not detected (Not Detected) 04/29/20 05:50 Assessment/Plan CXR: clear lungs/pleura Echo 12/2017: nl lv, rv tds, mild mr, mild tr, mild pr, nl rvsp Echo 06/2018 LV nl size/function, mild conc LVH, tr to mild MR, mild TR, PASP at least 27 mmHg, tr to mild AR mibi 06/2018 no ischemia, EF 67% EKG: sinus tach 101 bpm. no ischemic changes. repeat EKG sinus rhythm, prolonged QTc 472 ms ASSESSMENT/PLAN 69F h/o afib s/p ablation 02/2020, HTN, CVA p/w vomiting, high blood pressure and palpitations. palpitations, atrial fibrillation - felt fast heart beat while vomiting, EKG shows sinus tach - s/p afib ablation in Feb [address] [facility] [place], since then has not had palps, has event monitor - likely symptoms in setting of nausea, vomiting with sinus tach - cont outpatient monitoring - cont metoprolol, cardizem, eliquis - no further inpatient cardiac workup nausea, vomiting - workup per primary HTN - cont home meds prolonged QTc - replete lytes for K > 4, Mg >2 - also received zofran - avoid QT prolonging agents
--- NOTE | 2020-04-30 13:51 | DS ---
Physical Exam: SUBJECTIVE: Patient seen and examined 69 yo occitan speaking female with PMH HTN, HLD, constipation, Afib on eliquis s/p ablation 2018 who came into the ED c/o 1 day h/o abdominal pain and nausea/vomiting. CTAP negative for pathology in ED OBJECTIVE: Vital Signs Period Temp Pulse Resp BP Sys/Valdes Pulse Ox Last 24 Hr 97.6 F-99 F 70-86 18-20 131-154/70-78 96-99 PHYSICAL EXAM GENERAL: The patient is awake, alert, and fully oriented, in no acute distress. HEAD: Normal with no signs of trauma. EYES: PERRL, extraocular movements intact, sclera anicteric, conjunctiva clear. ENT: Ears normal, nares patent, oropharynx clear without exudates, moist mucous membranes. NECK: Trachea midline, full range of motion, supple. LUNGS: Breath sounds equal, clear to auscultation bilaterally, no wheezes, no crackles, no accessory muscle use. HEART: Regular rate and rhythm, S1, S2 without murmur, rub or gallop. ABDOMEN: Soft, nontender, nondistended, normoactive bowel sounds, no guarding, no rebound, no hepatosplenomegaly, no masses. EXTREMITIES: 2+ pulses, warm, well-perfused, no edema. NEUROLOGICAL: Cranial nerves II through XII grossly intact. Normal speech, gait not observed. PSYCH: Normal mood, normal affect. SKIN: Warm, dry, normal turgor, no rashes or lesions noted. LABS Laboratory Results - last 24 hr 04/29/20 04/29/20 04/30/20 05:50 11:51 06:50 WBC 4.6 RBC 4.19 Hgb 11.6 Hct 36.3 MCV 86.7 MCH 27.7 MCHC 31.9 L RDW 14.6 Plt Count 163 MPV 9.6 D-Dimer Sodium Potassium Chloride Carbon Dioxide Anion Gap BUN Creatinine Est GFR (CKD-EPI)AfAm Est GFR (CKD-EPI)NonAf Random Glucose Calcium Phosphorus Magnesium Total Bilirubin AST ALT Alkaline Phosphatase LD Total Troponin I < 0.02 C-Reactive Protein Total Protein Albumin COVID-19 ([facility]) Not detected 04/30/20 04/30/20 06:50 12:20 WBC RBC Hgb Hct MCV MCH MCHC RDW Plt Count MPV D-Dimer < 215 Sodium 140 Potassium 3.5 Chloride 108 H Carbon Dioxide 27 Anion Gap 5 L BUN 10.1 Creatinine 0.5 L Est GFR (CKD-EPI)AfAm 112.86 Est GFR (CKD-EPI)NonAf 97.37 Random Glucose 76 Calcium 7.6 L Phosphorus 2.4 L Magnesium 2.2 Total Bilirubin 0.8 AST 20 ALT 16 Alkaline Phosphatase 68 LD Total 159 Troponin I C-Reactive Protein 0.3 Total Protein 6.5 Albumin 3.0 L COVID-19 ([facility]) HOSPITAL COURSE: Date of Admission:04/29/20 Date of Discharge: 04/30/20 Problem List - Problems (1) HLD (hyperlipidemia) c/w statin Code(s): E78.5 - HYPERLIPIDEMIA, UNSPECIFIED (2) Suspected COVID-19 virus infection negative pcr Code(s): Z20.828 - CONTACT W AND EXPOSURE TO OTH VIRAL COMMUNICABLE DISEASES (3) Abdominal pain resolved CT a/p withoput acute pathology Code(s): R10.9 - UNSPECIFIED ABDOMINAL PAIN Qualifiers: Abdominal location: generalized Qualified Code(s): R10.84 - Generalized abdominal pain (4) Prophylactic measure Code(s): Z29.9 - ENCOUNTER FOR PROPHYLACTIC MEASURES, UNSPECIFIED (5) Atrial fibrillation seen by cardiology 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 Code(s): I48.91 - UNSPECIFIED ATRIAL FIBRILLATION Qualifiers: Atrial fibrillation type: chronic (6) HTN (hypertension) c/w home meds Code(s): I10 - ESSENTIAL (PRIMARY) HYPERTENSION (7) History of stroke Code(s): Z86.73 - PRSNL HX OF TIA (TIA), AND CEREB INFRC W/O RESID DEFICITS Stable for discharge with home with outpatinet followup Minutes to complete discharge: 35 Discharge Summary Problems reviewed: Yes Reason For Visit: NAUSEA AND VOMITING, ABDOMINAL PAIN Current Active Problems Abdominal pain (Acute) HLD (hyperlipidemia) (Acute) Nausea & vomiting (Acute) Suspected COVID-19 virus infection (Acute) Condition: Improved - Instructions Diet, Activity, Other Instructions: DISCHARGE YOUR VISIT You came to the hospital because had nausea and vomiting and your heart rate was high. A CT was done was negative. You were given IV fluids and nausea medicine and it resolved. The test for the Mcnulty virus was sent and it was negative. Eat bland light food for the next couple of days MEDICATIONS Please continue to take your home medications as prescribed. There was no changes DIET Continue your home diet ADDITIONAL CARE Please make an appointment to see your primary care provider, 2 week from today. ADDITIONAL INFORMATION Please call 911 or come directly to the emergency department if you experience unusual headache, vision change, shortness of breath, chest pain, numbness, tingling, loss of alertness/awareness, loss of function, unusual bleeding or any alarming symptoms. Thank you for allowing me to care for you. Phani Sultana, [facility], [facility] [phone] Referrals: Melinda Medel DO [Primary Care Provider] - Disposition: HOME - Home Medications Comprehensive Discharge Medication List: Ambulatory Orders Diltiazem Cd [Cardizem Cd -] 120 mg PO DAILY #30 cap.cd.24h 10/15/17 Apixaban [Eliquis] 5 mg PO BID 06/21/18 Lisinopril [Prinivil] 40 mg PO DAILY 06/21/18 Omeprazole 20 mg PO DAILY 09/28/19 Meloxicam 15 mg PO DAILY 09/29/19 Metoprolol Succinate [Toprol XL -] 50 mg PO DAILY #30 tab.sr.24h 09/29/19 Acetaminophen [Tylenol .Regular Strength -] 650 mg PO Q6H PRN tablet 04/30/20 Pantoprazole Sodium [Protonix -] 40 mg PO DAILY tablet.ec 04/30/20 Prescription Drug Monitoring Program (I-STOP) results: I-STOP not reviewed Problem List - Problems (1) HLD (hyperlipidemia) Code(s): E78.5 - HYPERLIPIDEMIA, UNSPECIFIED (2) Suspected COVID-19 virus infection Code(s): Z20.828 - CONTACT W AND EXPOSURE TO OTH VIRAL COMMUNICABLE DISEASES (3) Abdominal pain Code(s): R10.9 - UNSPECIFIED ABDOMINAL PAIN Qualifiers: Abdominal location: generalized Qualified Code(s): R10.84 - Generalized ab dominal pain (4) Prophylactic measure Code(s): Z29.9 - ENCOUNTER FOR PROPHYLACTIC MEASURES, UNSPECIFIED (5) Atrial fibrillation Code(s): I48.91 - UNSPECIFIED ATRIAL FIBRILLATION Qualifiers: Atrial fibrillation type: chronic (6) HTN (hypertension) Code(s): I10 - ESSENTIAL (PRIMARY) HYPERTENSION (7) History of stroke Code(s): Z86.73 - PRSNL HX OF TIA (TIA), AND CEREB INFRC W/O RESID DEFICITS This patient is new to me today: Yes Date on this admission: 04/30/20 Emergency Visit: Yes ED Registration Date: 04/29/20 Care time: The patient presented to the Emergency Department on the above date and was hospitalized for further evaluation of their emergent condition. Critical Care patient: No - Discharge Referral Referred to [facility] Med P.C.: No
[2020-04-30 14:04] VITALS: BP 142/72; PULSE 89; TEMP 97.9
[2020-04-30] MEDS ORDERED: FLU VACCINE (FLULAVAL) PF 60 MCG/0.5 ML SYRINGE 2020-2021 IM ONE (15:00)
== END 2020-04-30 16:52 | disposition home or self-care (01) | DRG 392 ==
LOC: JER 01:17 → JERBED 06:18 → J8W 16:32
PROVIDERS: ADMIT Internal Medicine; ATTEND Nurse Practitioner Acute Care
DX: R11.2 Nausea with vomiting, unspecified (principal); J98.11 Atelectasis; I48.20 Chronic atrial fibrillation, unspecified; K29.70 Gastritis, unspecified, without bleeding; I48.91 Unspecified atrial fibrillation; R00.0 Tachycardia, unspecified; I10 Essential (primary) hypertension; K44.9 Diaphragmatic hernia without obstruction or gangrene; N28.1 Cyst of kidney, acquired; K57.90 Diverticulosis of intestine, part unspecified, without perforation or abscess without bleeding; E78.5 Hyperlipidemia, unspecified; Z79.01 Long term (current) use of anticoagulants; Z86.73 Personal history of transient ischemic attack (TIA), and cerebral infarction without residual deficits; Z87.891 Personal history of nicotine dependence; R94.31 Abnormal electrocardiogram [ECG] [EKG]; I25.10 Atherosclerotic heart disease of native coronary artery without angina pectoris; I25.84 Coronary atherosclerosis due to calcified coronary lesion; I51.7 Cardiomegaly
CPT/HCPCS: 36415; 71045-TC-FY; 74177-TC; 80053; 81003; 82550; 83605; 83615; 83690; 83735; 84100; 84478; 84484; 85025; 85027; 85379; 85610; 85730; 86140; 93005; 93010; 99285-25; C9803; J0131; Q2036; Q9967; U0003

== ENCOUNTER 2020-12-25 05:48 | Observation (INO) | payer OTHER ==
[2020-12-25] MEDS ORDERED: dilTIAZem HCL 50 MG/10 ML - 10 ML VIAL IVPUSH ONE ×2 (06:08→06:21)
[2020-12-25] MEDS ORDERED: dilTIAZem HCL 125 MG/25 ML - 25 ML VIAL ONE (06:13)
[2020-12-25] MEDS ORDERED: dilTIAZem HCL 60 MG TABLET ONE (06:23)
[2020-12-25] MEDS ORDERED: dilTIAZem HCL 60 MG TABLET PO ONE (06:24)
[2020-12-25 06:47] LABS: BASO % 0.8 % (0-2.0); EOS % 0.6 % (0-4.5); HEMATOCRIT 39.8 % (32.4-45.2); LYMPH % 23.9 % (8-40); MCH 28.4 pg (25.7-33.7); MCHC 32.5 g/dl (32.0-36.0); MEAN CELL VOLUME 87.3 fl (80-96); MEAN PLT VOLUME 9.9 fl (7.5-11.1); MONO % 7.9 % (3.8-10.2); NEUT % 66.8 % (42.8-82.8); PLATELET COUNT 173 K/MM3 (134-434); RBC 4.56 M/mm3 (3.60-5.2); RDW 14.4 % (11.6-15.6); WHITE BLOOD COUNT 5.7 K/mm3 (4.0-10.0)
[2020-12-25 06:52] LABS: INR 1.26 (0.83-1.09); PROTHROMBIN TIME (PATIENT) 15.2 SEC (9.7-13.0)
[2020-12-25 07:04] LABS: CHLORIDE 104 mmol/L (98-107); SODIUM 133 mmol/L (136-145)
[2020-12-25 07:06] LABS: ALBUMIN 3.5 g/dl (3.4-5.0); ANION GAP 6 MMOL/L (8-16); BLOOD UREA NITROGEN 12.6 mg/dL (7-18); CALCIUM 8.3 mg/dL (8.5-10.1); CO2 23 mmol/L (21-32); GLUCOSE,RANDOM 124 mg/dL (74-106)
[2020-12-25 07:10] LABS: CREATININE 0.6 mg/dL (0.55-1.3); SGOT/AST 39 U/L (15-37); SGPT/ALT 20 U/L (13-61)
[2020-12-25 07:11] LABS: BILIRUBIN,TOTAL 0.4 mg/dL (0.2-1); TOT PROT 7.7 g/dl (6.4-8.2)
[2020-12-25 07:12] LABS: ALK PHOS 69 U/L (45-117)
[2020-12-25] MEDS ORDERED: SODIUM CHLORIDE 0.9% 500 ML INFUS.BAG IV ONE (07:34)
[2020-12-25] MEDS ORDERED: METOPROLOL TARTRATE 5 MG/5 ML VIAL IVPUSH ONE (07:54)
[2020-12-25] MEDS ORDERED: METOPROLOL TARTRATE 5 MG/5 ML VIAL ONE ×2 (08:32)
[2020-12-25] MEDS ORDERED: METOPROLOL TARTRATE 50 MG TABLET (FP) PO ONE (08:54)
[2020-12-25] MEDS ORDERED: ENOXAPARIN NA (PORCINE) 40 MG/0.4 ML DISP.SYRIN SQ SCH (10:00)
[2020-12-25] MEDS: LISINOPRIL 20 MG TABLET PO SCH (10:04)
[2020-12-25] MEDS ORDERED: LISINOPRIL 20 MG TABLET ONE (10:09)
[2020-12-25] MEDS ORDERED: ACETAMINOPHEN 325 MG TABLET (FP) ONE (10:47)
[2020-12-25 11:06] LABS: CALCIUM 8.4 mg/dL (8.5-10.1)
[2020-12-25 11:07] LABS: BLOOD UREA NITROGEN 8.3 mg/dL (7-18)
[2020-12-25 11:10] LABS: CREATININE 0.4 mg/dL (0.55-1.3)
[2020-12-25 11:48] VITALS: BMI 28.5
[2020-12-25] MEDS ORDERED: PT OWN MED DRAWER 7, Y5N ONE (13:34)
[2020-12-25] MEDS: metoPROLOL SUCCINATE 25 MG TAB.SR.24H (FP) PO SCH (21:03)
[2020-12-25] MEDS: APIXABAN 5 MG TABLET PO SCH (21:04)
[2020-12-26 03:34] VITALS: TEMP 98.2
[2020-12-26 05:51] VITALS: PULSE 60
[2020-12-26 07:08] LABS: HEMATOCRIT 37.1 % (32.4-45.2); HEMOGLOBIN 12.1 GM/dL (10.7-15.3); MCH 28.6 pg (25.7-33.7); MCHC 32.7 g/dl (32.0-36.0); MEAN CELL VOLUME 87.2 fl (80-96); MEAN PLT VOLUME 9.9 fl (7.5-11.1); PLATELET COUNT 159 K/MM3 (134-434); RBC 4.25 M/mm3 (3.60-5.2); WHITE BLOOD COUNT 4.2 K/mm3 (4.0-10.0)
[2020-12-26 07:36] LABS: BLOOD UREA NITROGEN 14.6 mg/dL (7-18); CALCIUM 8.3 mg/dL (8.5-10.1); MAGNESIUM 2.1 mg/dL (1.8-2.4)
[2020-12-26 07:38] LABS: CREATININE 0.5 mg/dL (0.55-1.3); PHOSPHOROUS 2.7 mg/dL (2.5-4.9)
[2020-12-26 07:39] LABS: BILIRUBIN,TOTAL 0.4 mg/dL (0.2-1)
[2020-12-26 07:40] LABS: TOT PROT 6.3 g/dl (6.4-8.2)
[2020-12-26 08:45] VITALS: BP 148/80
[2020-12-26] MEDS: APIXABAN 5 MG TABLET PO SCH (09:16)
[2020-12-26] MEDS: metoPROLOL SUCCINATE 25 MG TAB.SR.24H (FP) PO SCH (09:16)
[2020-12-26] MEDS: LISINOPRIL 20 MG TABLET PO SCH (09:17)
== END 2020-12-26 14:09 | disposition home or self-care (01) ==
LOC: JER 05:48 → INTOOBSV 07:31 → JERBED 07:31 → J4W 11:02
PROVIDERS: ATTEND Student in an Organized Health Care Education/Training Program
PROC: 3E023GC Introduction of Other Therapeutic Substance into Muscle, Percutaneous Approach (ICD-10-PCS; principal; 2020-12-25)
PROC: 3E033GC Introduction of Other Therapeutic Substance into Peripheral Vein, Percutaneous Approach (ICD-10-PCS; 2020-12-25)
PROC: 3E0337Z Introduction of Electrolytic and Water Balance Substance into Peripheral Vein, Percutaneous Approach (ICD-10-PCS; 2020-12-25)
DX: I48.91 Unspecified atrial fibrillation (principal); I10 Essential (primary) hypertension; K21.9 Gastro-esophageal reflux disease without esophagitis; Z79.01 Long term (current) use of anticoagulants; E78.5 Hyperlipidemia, unspecified; M54.5 Low back pain; G89.29 Other chronic pain; Z29.9 Encounter for prophylactic measures, unspecified
CPT/HCPCS: 36415; 71045-TC-FY; 80048; 80053; 83036; 83735; 84100; 84439; 84443; 84484; 85025; 85027; 85610; 85730; 93005; 93010; 96360; 96372; 96374; 96375; 96376; 99285-25; C9803; G0378; U0003; U0005

== ENCOUNTER 2021-01-31 13:48 | Observation (INO) | payer OTHER ==
[2021-01-31] MEDS ORDERED: FAMOTIDINE 20 MG/50 ML IVPB 20 MG/50 ML MG IVPB ONE ×2 (15:12→15:28)
[2021-01-31] MEDS ORDERED: ONDANSETRON 4 MG/2 ML VIAL IVPUSH ONE (15:12)
[2021-01-31] MEDS ORDERED: MAG HYDROX/AL HYDROX/SIMETH 30 ML UNIT-DOSE CUP PO ONE (15:12)
[2021-01-31] MEDS ORDERED: MECLIZINE HCL 12.5 MG TABLET PO ONE ×3 (15:12→16:32)
[2021-01-31] MEDS ORDERED: MAG HYDROX/AL HYDROX/SIMETH 30 ML UNIT-DOSE CUP ONE (15:27)
[2021-01-31] MEDS ORDERED: MECLIZINE HCL 12.5 MG TABLET ONE ×2 (15:27→16:50)
[2021-01-31] MEDS ORDERED: ONDANSETRON 4 MG/2 ML VIAL ONE (15:27)
[2021-01-31 15:36] LABS: BASO % 0.7 % (0-2.0); EOS % 0.3 % (0-4.5); HEMOGLOBIN 12.5 GM/dL (10.7-15.3); LYMPH % 18.3 % (8-40); MCH 27.5 pg (25.7-33.7); MCHC 31.9 g/dl (32.0-36.0); MEAN CELL VOLUME 86.3 fl (80-96); MEAN PLT VOLUME 9.5 fl (7.5-11.1); MONO % 4.6 % (3.8-10.2); NEUT % 76.1 % (42.8-82.8); PLATELET COUNT 173 10^3/uL (134-434); RBC 4.53 M/mm3 (3.60-5.2); RDW 14.2 % (11.6-15.6); WHITE BLOOD COUNT 5.6 K/mm3 (4.0-10.0)
[2021-01-31 16:16] LABS: CHLORIDE 109 mmol/L (98-107); SODIUM 143 mmol/L (136-145)
[2021-01-31 16:18] LABS: CALCIUM 8.8 mg/dL (8.5-10.1)
[2021-01-31 16:19] LABS: ALBUMIN 3.4 g/dl (3.4-5.0); ANION GAP 5 MMOL/L (8-16); BLOOD UREA NITROGEN 9.4 mg/dL (7-18); CO2 29 mmol/L (21-32); GLUCOSE,RANDOM 89 mg/dL (74-106); LIPASE 63 U/L (73-393); MAGNESIUM 2.2 mg/dL (1.8-2.4)
[2021-01-31 16:21] LABS: SGPT/ALT 17 U/L (13-61)
[2021-01-31 16:22] LABS: CREATININE 0.6 mg/dL (0.55-1.3); SGOT/AST 18 U/L (15-37)
[2021-01-31 16:23] LABS: BILIRUBIN,TOTAL 0.3 mg/dL (0.2-1); TOT PROT 7.4 g/dl (6.4-8.2)
[2021-01-31 16:25] LABS: ALK PHOS 65 U/L (45-117)
[2021-01-31] MEDS ORDERED: METOCLOPRAMIDE HCL INJECTION 10 MG/2 ML VIAL IVPUSH ONE (16:30)
[2021-01-31] MEDS ORDERED: METOCLOPRAMIDE HCL INJECTION 10 MG/2 ML VIAL ONE (16:49)
[2021-01-31] MEDS ORDERED: ASPIRIN 81 MG CHEWABLE TABLETS PO ONE (17:37)
[2021-01-31] MEDS ORDERED: ASPIRIN 81 MG CHEWABLE TABLETS ONE (17:47)
[2021-01-31] MEDS ORDERED: ATORVASTATIN CA 40 MG TABLET (FP) PO SCH (22:00)
[2021-01-31] MEDS ORDERED: metoPROLOL SUCCINATE 25 MG TAB.SR.24H (FP) PO SCH ×2 (22:00)
[2021-01-31] MEDS ORDERED: MECLIZINE HCL 25 MG TABLET (FP) PO PRN (23:00)
[2021-01-31] MEDS: MECLIZINE HCL 12.5 MG TABLET PO SCH (23:53)
[2021-01-31] MEDS: APIXABAN 5 MG TABLET PO SCH (23:53)
[2021-02-01 00:28] VITALS: BMI 28.5
[2021-02-01 07:36] LABS: EOS % 0.9 % (0-4.5); HEMATOCRIT 38.4 % (32.4-45.2); HEMOGLOBIN 12.5 GM/dL (10.7-15.3); LYMPH % 36.2 % (8-40); MCH 28.2 pg (25.7-33.7); MCHC 32.6 g/dl (32.0-36.0); MEAN CELL VOLUME 86.3 fl (80-96); MEAN PLT VOLUME 9.4 fl (7.5-11.1); MONO % 9.2 % (3.8-10.2); NEUT % 52.7 % (42.8-82.8); PLATELET COUNT 162 10^3/uL (134-434); RBC 4.45 M/mm3 (3.60-5.2); RDW 14.6 % (11.6-15.6); WHITE BLOOD COUNT 4.7 K/mm3 (4.0-10.0)
[2021-02-01 08:00] LABS: CHLORIDE 108 mmol/L (98-107); SODIUM 141 mmol/L (136-145)
[2021-02-01 08:07] LABS: CALCIUM 8.2 mg/dL (8.5-10.1); CREATININE 0.6 mg/dL (0.55-1.3)
[2021-02-01 08:08] LABS: ALBUMIN 3.2 g/dl (3.4-5.0); ANION GAP 6 MMOL/L (8-16); BLOOD UREA NITROGEN 13.6 mg/dL (7-18); CO2 27 mmol/L (21-32); GLUCOSE,RANDOM 74 mg/dL (74-106); MAGNESIUM 2.1 mg/dL (1.8-2.4)
[2021-02-01 08:09] LABS: BILIRUBIN,TOTAL 0.4 mg/dL (0.2-1); TOT PROT 6.7 g/dl (6.4-8.2)
[2021-02-01 08:10] LABS: ALK PHOS 62 U/L (45-117); SGPT/ALT 16 U/L (13-61)
[2021-02-01 08:11] LABS: SGOT/AST 14 U/L (15-37)
[2021-02-01] MEDS: APIXABAN 5 MG TABLET PO SCH (09:09)
[2021-02-01] MEDS: MECLIZINE HCL 12.5 MG TABLET PO SCH (09:09)
[2021-02-01] MEDS ORDERED: LISINOPRIL 20 MG TABLET PO SCH (10:00)
[2021-02-01] MEDS ORDERED: PANTOPRAZOLE 20 MG TABLET PO SCH (10:00)
[2021-02-01] MEDS ORDERED: ENOXAPARIN NA (PORCINE) 40 MG/0.4 ML DISP.SYRIN SQ SCH (10:00)
[2021-02-01 16:09] VITALS: BP 144/69; PULSE 57; TEMP 98
== END 2021-02-01 19:28 | disposition home or self-care (01) ==
LOC: JER 13:48 → JERBED 17:30 → INTOOBSV 17:30 → J4W 23:48
PROVIDERS: ATTEND Internal Medicine
PROC: 3E033GC Introduction of Other Therapeutic Substance into Peripheral Vein, Percutaneous Approach (ICD-10-PCS; principal; 2021-01-31)
DX: I25.2 Old myocardial infarction (principal); I10 Essential (primary) hypertension; E78.5 Hyperlipidemia, unspecified; I48.91 Unspecified atrial fibrillation; Z79.01 Long term (current) use of anticoagulants; Z86.73 Personal history of transient ischemic attack (TIA), and cerebral infarction without residual deficits; R00.1 Bradycardia, unspecified; Z90.49 Acquired absence of other specified parts of digestive tract; K21.9 Gastro-esophageal reflux disease without esophagitis; Z87.891 Personal history of nicotine dependence; I16.0 Hypertensive urgency; R10.13 Epigastric pain; Z29.9 Encounter for prophylactic measures, unspecified
CPT/HCPCS: 36415; 70450-TC; 71045-TC-FY; 80053; 83690; 83735; 84443; 84484; 85025; 93005; 93010; 96365; 96375; 97116-GP; 97161-GP; 99285-25; C9803; G0378; U0003; U0005

== ENCOUNTER 2021-07-21 03:30 | Inpatient (IN) | payer OTHER ==
[2021-07-21 04:02] VITALS: BMI 26.9
[2021-07-21 05:47] LABS: CHLORIDE 106 mmol/L (98-107); SODIUM 139 mmol/L (136-145)
[2021-07-21 05:48] LABS: CALCIUM 8.7 mg/dL (8.5-10.1)
[2021-07-21 05:49] LABS: ANION GAP 6 MMOL/L (8-16); BLOOD UREA NITROGEN 16.9 mg/dL (7-18); CO2 27 mmol/L (21-32); GLUCOSE,RANDOM 113 mg/dL (74-106)
[2021-07-21 05:50] LABS: HEMATOCRIT 37.9 % (32.4-45.2); MCH 27.5 pg (25.7-33.7); MCHC 31.7 g/dl (32.0-36.0); MEAN CELL VOLUME 86.7 fl (80-96); PLATELET COUNT 165 10^3/uL (134-434); RBC 4.37 M/mm3 (3.60-5.2); RDW 13.9 % (11.6-15.6); WHITE BLOOD COUNT 3.6 K/mm3 (4.0-10.0)
[2021-07-21 05:53] LABS: CREATININE 0.6 mg/dL (0.55-1.3); SGOT/AST 21 U/L (15-37); SGPT/ALT 22 U/L (13-61)
[2021-07-21 05:54] LABS: BILIRUBIN,TOTAL 0.2 mg/dL (0.2-1)
[2021-07-21 05:55] LABS: ALK PHOS 69 U/L (45-117)
[2021-07-21 05:56] LABS: BASO % 0.8 % (0-2.0); EOS % 0.8 % (0-4.5); MONO % 9.4 % (3.8-10.2)
[2021-07-21] MEDS ORDERED: PANTOPRAZOLE 40 MG TABLET ONE (09:09)
[2021-07-21] MEDS ORDERED: LISINOPRIL 20 MG TABLET ONE (09:10)
[2021-07-21] MEDS ORDERED: APIXABAN 5 MG TABLET ONE ×2 (09:10→21:24)
[2021-07-21] MEDS: LISINOPRIL 20 MG TABLET PO SCH (09:18)
[2021-07-21] MEDS: PANTOPRAZOLE 40 MG TABLET PO SCH (09:18)
[2021-07-21] MEDS: APIXABAN 5 MG TABLET PO SCH ×2 (09:18→22:02)
[2021-07-21] MEDS ORDERED: DOFETILIDE 0.5 MG CAPSULE PO SCH (22:00)
[2021-07-21] MEDS: DOFETILIDE 0.5 MG CAPSULE PO SCH (22:02)
[2021-07-22] MEDS ORDERED: APIXABAN 5 MG TABLET ONE (08:50)
[2021-07-22] MEDS ORDERED: PANTOPRAZOLE 40 MG TABLET ONE (08:50)
[2021-07-22] MEDS ORDERED: LISINOPRIL 20 MG TABLET ONE (08:51)
[2021-07-22] MEDS: PANTOPRAZOLE 40 MG TABLET PO SCH (09:20)
[2021-07-22] MEDS: APIXABAN 5 MG TABLET PO SCH (09:20)
[2021-07-22] MEDS: DOFETILIDE 0.5 MG CAPSULE PO SCH (09:20)
[2021-07-22] MEDS: LISINOPRIL 20 MG TABLET PO SCH (09:20)
[2021-07-22 13:41] LABS: BASO % 1.1 % (0-2.0); HEMATOCRIT 42.6 % (32.4-45.2); HEMOGLOBIN 13.3 GM/dL (10.7-15.3); LYMPH % 37.8 % (8-40); MCH 27.3 pg (25.7-33.7); MCHC 31.2 g/dl (32.0-36.0); MEAN CELL VOLUME 87.5 fl (80-96); MEAN PLT VOLUME 9.8 fl (7.5-11.1); MONO % 6.2 % (3.8-10.2); NEUT % 53.9 % (42.8-82.8); PLATELET COUNT 179 10^3/uL (134-434); RBC 4.87 M/mm3 (3.60-5.2); RDW 14.4 % (11.6-15.6); WHITE BLOOD COUNT 3.6 K/mm3 (4.0-10.0)
[2021-07-22 13:51] LABS: INR 1.46 (0.83-1.09); PROTHROMBIN TIME (PATIENT) 16.4 SEC (9.7-13.0)
[2021-07-22 15:11] LABS: BILIRUBIN,TOTAL 0.4 mg/dL (0.2-1); TOT PROT 7.7 g/dl (6.4-8.2)
[2021-07-22 15:17] LABS: ALBUMIN 3.2 g/dl (3.4-5.0); CALCIUM 8.6 mg/dL (8.5-10.1); CREATININE 0.6 mg/dL (0.55-1.3)
[2021-07-22 21:12] VITALS: BP 145/65; PULSE 81; TEMP 98.5
== END 2021-07-22 19:55 | disposition home or self-care (01) | DRG 308 ==
LOC: JER 03:30 → JERBED 06:55
PROVIDERS: ATTEND Internal Medicine
DX: I48.91 Unspecified atrial fibrillation (principal); U07.1 COVID-19; I10 Essential (primary) hypertension; E11.9 Type 2 diabetes mellitus without complications; E78.5 Hyperlipidemia, unspecified; Z79.01 Long term (current) use of anticoagulants; K21.9 Gastro-esophageal reflux disease without esophagitis; E66.9 Obesity, unspecified; Z68.26 Body mass index [BMI] 26.0-26.9, adult
CPT/HCPCS: 36415; 71045-TC-FY; 80053; 82550; 84443; 84484; 85025; 85610; 93005; 93010; 99285-25; C9803; U0003; U0005

== ENCOUNTER 2022-04-02 09:27 | Observation (INO) | payer OTHER ==
[2022-04-02 09:52] VITALS: BMI 28.1
[2022-04-02] MEDS ORDERED: METOPROLOL TARTRATE 5 MG/5 ML VIAL ONE ×3 (10:08→11:33)
[2022-04-02] MEDS ORDERED: METOCLOPRAMIDE HCL INJECTION 10 MG/2 ML VIAL IVPUSH ONE (10:13)
[2022-04-02] MEDS ORDERED: METOPROLOL TARTRATE 5 MG/5 ML VIAL IVPUSH ONE ×3 (10:15→11:30)
[2022-04-02 10:32] LABS: BASO % 0.5 % (0-2.0); EOS % 0.8 % (0-4.5); HEMATOCRIT 43.3 % (32.4-45.2); HEMOGLOBIN 13.7 GM/dL (10.7-15.3); MCH 27.5 pg (25.7-33.7); MCHC 31.5 g/dl (32.0-36.0); MEAN CELL VOLUME 87.1 fl (80-96); MEAN PLT VOLUME 9.9 fl (7.5-11.1); MONO % 8.4 % (3.8-10.2); NEUT % 64.3 % (42.8-82.8); PLATELET COUNT 174 10^3/uL (134-434); RBC 4.97 M/mm3 (3.60-5.2); RDW 14.3 % (11.6-15.6); WHITE BLOOD COUNT 4.1 K/mm3 (4.0-10.0)
[2022-04-02 10:34] LABS: EPI CELLS 9 /uL (0-25.1); HYALINE CASTS 0 /uL (0-3.1); PH,URINE 7.5 (5.0-8.0); URINE APPEARANCE CLEAR; URINE BACTERIA 99 /uL (0-1359); URINE BILIRUBIN NEGATIVE (NEGATIVE); URINE COLOR YELLOW; URINE GLUCOSE (UA) NEGATIVE (NEGATIVE); URINE KETONE NEGATIVE (NEGATIVE); URINE LEUK ESTERASE TRACE (NEGATIVE); URINE NITRITE NEGATIVE (NEGATIVE); URINE PROTEIN NEGATIVE (NEGATIVE); URINE RBC 10 /uL (0-23.9); URINE UROBILINOGEN 0.2 mg/dL (0.2-1.0); URINE WBC 8 /uL (0-25.8)
[2022-04-02 10:53] LABS: CALCIUM 9.1 mg/dL (8.5-10.1)
[2022-04-02 10:54] LABS: ALBUMIN 3.7 g/dl (3.4-5.0); BLOOD UREA NITROGEN 12.7 mg/dL (7-18)
[2022-04-02 10:57] LABS: CREATININE 0.7 mg/dL (0.55-1.3)
[2022-04-02 10:59] LABS: BILIRUBIN,TOTAL 0.4 mg/dL (0.2-1); TOT PROT 7.7 g/dl (6.4-8.2)
[2022-04-02] MEDS ORDERED: METOPROLOL TARTRATE 50 MG TABLET (FP) PO ONE (11:26)
[2022-04-02] MEDS ORDERED: METOPROLOL TARTRATE 50 MG TABLET (FP) ONE (11:33)
[2022-04-02] MEDS: metoPROLOL SUCCINATE 25 MG TAB.SR.24H (FP) PO SCH (21:11)
[2022-04-02] MEDS: APIXABAN 5 MG TABLET PO SCH (21:11)
[2022-04-02] MEDS: DOFETILIDE 0.5 MG CAPSULE PO SCH (21:11)
[2022-04-02] MEDS ORDERED: DOFETILIDE 0.5 MG CAPSULE PO SCH (22:00)
[2022-04-03 08:58] LABS: BASO % 0.5 % (0-2.0); HEMATOCRIT 40.4 % (32.4-45.2); HEMOGLOBIN 13.1 GM/dL (10.7-15.3); LYMPH % 36.4 % (8-40); MCH 28.5 pg (25.7-33.7); MCHC 32.6 g/dl (32.0-36.0); MEAN CELL VOLUME 87.5 fl (80-96); MEAN PLT VOLUME 9.9 fl (7.5-11.1); MONO % 8.1 % (3.8-10.2); PLATELET COUNT 154 10^3/uL (134-434); RBC 4.61 M/mm3 (3.60-5.2); WHITE BLOOD COUNT 3.9 K/mm3 (4.0-10.0)
[2022-04-03 09:08] LABS: INR 1.28 (0.83-1.09); PROTHROMBIN TIME (PATIENT) 14.7 SEC (9.7-13.0)
[2022-04-03 09:11] LABS: ACTIVATED PTT 37.9 SECONDS (25.2-36.5)
[2022-04-03 09:27] LABS: BLOOD UREA NITROGEN 17.9 mg/dL (7-18); CALCIUM 8.5 mg/dL (8.5-10.1); MAGNESIUM 2.1 mg/dL (1.8-2.4)
[2022-04-03 09:28] LABS: ALBUMIN 3.3 g/dl (3.4-5.0)
[2022-04-03 09:30] LABS: CREATININE 0.6 mg/dL (0.55-1.3); PHOSPHOROUS 2.9 mg/dL (2.5-4.9)
[2022-04-03] MEDS: metoPROLOL SUCCINATE 25 MG TAB.SR.24H (FP) PO SCH (09:30)
[2022-04-03 09:32] LABS: BILIRUBIN,TOTAL 0.4 mg/dL (0.2-1)
[2022-04-03] MEDS ORDERED: DOFETILIDE 0.5 MG CAPSULE PO SCH ×2 (10:10→12:35)
[2022-04-03] MEDS ORDERED: DOFETILIDE 0.5 MG CAPSULE PO ONE (10:30)
[2022-04-03] MEDS: APIXABAN 5 MG TABLET PO SCH (10:38)
[2022-04-03] MEDS: DOFETILIDE 0.5 MG CAPSULE PO SCH (12:29)
[2022-04-03] MEDS ORDERED: LISINOPRIL 20 MG TABLET PO SCH (12:45)
[2022-04-03 18:52] VITALS: BP 154/85; PULSE 72; RESP 18; TEMP 98.3
== END 2022-04-03 19:11 | disposition home or self-care (01) ==
LOC: JER 09:27 → JERBED 12:28 → INTOOBSV 12:28 → UNDOADMOB 12:28 → JERBED 13:45 → J4S 17:25
PROVIDERS: ADMIT Internal Medicine
PROC: 3E033GC Introduction of Other Therapeutic Substance into Peripheral Vein, Percutaneous Approach (ICD-10-PCS; principal; 2022-04-02)
DX: I48.91 Unspecified atrial fibrillation (principal); Z79.01 Long term (current) use of anticoagulants; I10 Essential (primary) hypertension; E78.5 Hyperlipidemia, unspecified; K21.9 Gastro-esophageal reflux disease without esophagitis; R00.2 Palpitations; R10.13 Epigastric pain; G89.29 Other chronic pain; M19.90 Unspecified osteoarthritis, unspecified site
CPT/HCPCS: 36415; 71045-TC-FY; 80053; 81003; 83735; 84100; 84443; 84484; 85025; 85610; 85730; 93005; 93010; 96374; 96376; 99291; C9803-CS; G0378; U0003; U0005

== ENCOUNTER 2022-06-18 05:06 | Day surgery (SDC) | payer OTHER ==
[2022-06-17 13:27] VITALS: BMI 28.3
[2022-06-18 13:19] VITALS: BP 155/62; PULSE 76; RESP 18; TEMP 98
== END 2022-06-18 13:05 | disposition home or self-care (01) ==
LOC: JASU-ENDO 05:06
PROVIDERS: ATTEND Internal Medicine Gastroenterology
PROC: 0DB78ZX Excision of Stomach, Pylorus, Via Natural or Artificial Opening Endoscopic, Diagnostic (ICD-10-PCS; 2022-06-18)
PROC: 0DBH8ZX Excision of Cecum, Via Natural or Artificial Opening Endoscopic, Diagnostic (ICD-10-PCS; principal; 2022-06-18 10:15)
DX: Z12.11 Encounter for screening for malignant neoplasm of colon (principal); D12.0 Benign neoplasm of cecum; K25.9 Gastric ulcer, unspecified as acute or chronic, without hemorrhage or perforation; K57.30 Diverticulosis of large intestine without perforation or abscess without bleeding; K64.8 Other hemorrhoids; Z86.010 Personal history of colon polyps; I10 Essential (primary) hypertension
CPT/HCPCS: 88305-TC; 88342-TC

== ENCOUNTER 2022-08-20 04:35 | Day surgery (SDC) | payer OTHER ==
[2022-08-15 15:37] VITALS: BMI 27.3
[2022-08-20 12:05] VITALS: BP 167/69; PULSE 61; RESP 18; TEMP 97.1
== END 2022-08-20 12:10 | disposition home or self-care (01) ==
LOC: JASU-ENDO 04:35
PROVIDERS: ATTEND Internal Medicine Gastroenterology
PROC: 0DB78ZX Excision of Stomach, Pylorus, Via Natural or Artificial Opening Endoscopic, Diagnostic (ICD-10-PCS; 2022-08-20)
PROC: 0DB68ZX Excision of Stomach, Via Natural or Artificial Opening Endoscopic, Diagnostic (ICD-10-PCS; principal; 2022-08-20 10:15)
DX: K29.70 Gastritis, unspecified, without bleeding (principal)
CPT/HCPCS: 88305-TC; 88342-TC

== ENCOUNTER 2023-06-07 16:47 | Inpatient (IN) | payer OTHER ==
[2023-06-07 17:20] VITALS: BMI 27.4
[2023-06-07 18:34] LABS: BASO % 0.7 % (0-2.0); EOS % 0.5 % (0-4.5); HEMATOCRIT 38.2 % (32.4-45.2); HEMOGLOBIN 12.7 GM/dL (10.7-15.3); LYMPH % 31.8 % (8-40); MCH 28.1 pg (25.7-33.7); MCHC 33.3 g/dl (32.0-36.0); MEAN CELL VOLUME 84.6 fl (80-96); MEAN PLT VOLUME 9.3 fl (7.5-11.1); MONO % 10.2 % (3.8-10.2); NEUT % 56.8 % (42.8-82.8); PLATELET COUNT 192 10^3/uL (134-434); RBC 4.52 M/mm3 (3.60-5.2); RDW 14.8 % (11.6-15.6); WHITE BLOOD COUNT 4.9 K/mm3 (4.0-10.0)
[2023-06-07 18:43] LABS: INR 1.29 (0.83-1.09); PROTHROMBIN TIME (PATIENT) 14.9 SEC (9.7-13.0)
[2023-06-07 18:46] LABS: ACTIVATED PTT 37.4 SECONDS (25.2-36.5)
[2023-06-07 18:54] LABS: POTASSIUM 4.4 mmol/L (3.5-5.1)
[2023-06-07 18:56] LABS: CALCIUM 8.6 mg/dL (8.5-10.1)
[2023-06-07 18:57] LABS: ALBUMIN 3.2 g/dl (3.4-5.0); BLOOD UREA NITROGEN 17.8 mg/dL (7-18)
[2023-06-07 19:00] LABS: BILIRUBIN,TOTAL 0.3 mg/dL (0.2-1); CREATININE 0.7 mg/dL (0.55-1.3)
[2023-06-08 06:25] LABS: BASO % 0.6 % (0-2.0); EOS % 1.4 % (0-4.5); HEMOGLOBIN 12.5 GM/dL (10.7-15.3); LYMPH % 33.9 % (8-40); MCH 27.9 pg (25.7-33.7); MCHC 32.2 g/dl (32.0-36.0); MEAN CELL VOLUME 86.8 fl (80-96); MEAN PLT VOLUME 9.8 fl (7.5-11.1); MONO % 8.6 % (3.8-10.2); NEUT % 55.5 % (42.8-82.8); PLATELET COUNT 176 10^3/uL (134-434); RBC 4.49 M/mm3 (3.60-5.2); RDW 14.6 % (11.6-15.6); WHITE BLOOD COUNT 4.6 K/mm3 (4.0-10.0)
[2023-06-08 06:43] LABS: POTASSIUM 4.1 mmol/L (3.5-5.1)
[2023-06-08 06:45] LABS: ALBUMIN 3.1 g/dl (3.4-5.0); BLOOD UREA NITROGEN 15.8 mg/dL (7-18)
[2023-06-08 06:49] LABS: BILIRUBIN,TOTAL 0.5 mg/dL (0.2-1); CREATININE 0.4 mg/dL (0.55-1.3); TOT PROT 6.6 g/dl (6.4-8.2)
[2023-06-08 06:59] LABS: CALCIUM 8.1 mg/dL (8.5-10.1)
[2023-06-08] MEDS ORDERED: METOPROLOL TARTRATE 25 MG TABLET (FP) PO SCH ×2 (10:00→12:51)
[2023-06-08] MEDS ORDERED: amLODIPine BESYLATE 5 MG TABLET (FP) PO SCH (10:00)
[2023-06-08] MEDS ORDERED: LISINOPRIL 20 MG TABLET PO SCH (10:00)
[2023-06-08] MEDS ORDERED: DOFETILIDE 0.25 MG CAPSULE PO SCH (10:00)
[2023-06-08] MEDS ORDERED: APIXABAN 5 MG TABLET PO SCH (10:00)
[2023-06-08 11:29] LABS: EPI CELLS 23 /uL (0-25.1); HYALINE CASTS 0 /uL (0-3.1); PH,URINE 6.5 (5.0-8.0); URINE APPEARANCE CLEAR; URINE BACTERIA 547 /uL (0-1359); URINE BILIRUBIN NEGATIVE (NEGATIVE); URINE COLOR YELLOW; URINE GLUCOSE (UA) NEGATIVE (NEGATIVE); URINE KETONE NEGATIVE (NEGATIVE); URINE LEUK ESTERASE 2+ (NEGATIVE); URINE NITRITE NEGATIVE (NEGATIVE); URINE PROTEIN NEGATIVE (NEGATIVE); URINE RBC 11 /uL (0-23.9); URINE UROBILINOGEN 0.2 mg/dL (0.2-1.0); URINE WBC 86 /uL (0-25.8)
[2023-06-08 13:18] VITALS: TEMP 98
[2023-06-08 15:29] VITALS: BP 130/82; PULSE 85; RESP 16
== END 2023-06-08 13:26 | disposition home or self-care (01) | DRG 313 ==
LOC: JER 16:47 → JERBED 21:12 → OBSVTOIN 23:14
PROVIDERS: ADMIT Internal Medicine; ATTEND Internal Medicine
DX: R07.89 Other chest pain (principal); N39.0 Urinary tract infection, site not specified; I10 Essential (primary) hypertension; E78.5 Hyperlipidemia, unspecified; K21.9 Gastro-esophageal reflux disease without esophagitis; R00.1 Bradycardia, unspecified; R10.13 Epigastric pain; E86.0 Dehydration; I48.0 Paroxysmal atrial fibrillation; Z86.73 Personal history of transient ischemic attack (TIA), and cerebral infarction without residual deficits
CPT/HCPCS: 36415; 71045-TC-FY; 80053; 81003; 83735; 84443; 84484; 85025; 85610; 85730; 93005; 93010; 97116-GP; 99285-25; G0378

== ENCOUNTER 2024-01-28 16:00 | Emergency (ER) | payer OTHER ==
[2024-01-28 16:06] VITALS: BP 151/80; PULSE 56; RESP 18; TEMP 97; BMI 27.9
[2024-01-28] MEDS ORDERED: IBUPROFEN 600 MG TABLET (FP) PO ONE (17:01)
[2024-01-28] MEDS: IBUPROFEN 600 MG TABLET (FP) PO ONE (17:06)
[2024-01-28 17:18] LABS: EOS % 1.2 % (0-4.5); HEMATOCRIT 38.5 % (32.4-45.2); HEMOGLOBIN 12.4 GM/dL (10.7-15.3); LYMPH % 35.9 % (8-40); MCH 27.9 pg (25.7-33.7); MCHC 32.2 g/dl (32.0-36.0); MEAN CELL VOLUME 86.7 fl (80-96); MEAN PLT VOLUME 9.2 fl (7.5-11.1); MONO % 7.8 % (3.8-10.2); NEUT % 54.1 % (42.8-82.8); PLATELET COUNT 181 10^3/uL (134-434); RBC 4.44 M/mm3 (3.60-5.2); RDW 14.5 % (11.6-15.6); WHITE BLOOD COUNT 4.6 K/mm3 (4.0-10.0)
[2024-01-28 17:30] LABS: POTASSIUM 4.4 mmol/L (3.5-5.1)
[2024-01-28 17:33] LABS: ALBUMIN 3.5 g/dl (3.4-5.0); BLOOD UREA NITROGEN 13.9 mg/dL (7-18); MAGNESIUM 2.1 mg/dL (1.8-2.4)
[2024-01-28 17:36] LABS: CREATININE 0.5 mg/dL (0.55-1.3)
[2024-01-28 17:37] LABS: TOT PROT 7.6 g/dl (6.4-8.2)
[2024-01-28 17:38] LABS: BILIRUBIN,TOTAL 0.2 mg/dL (0.2-1)
== END 2024-01-28 18:39 | disposition home or self-care (01) ==
LOC: JER 16:00
DX: S46.912A Strain of unspecified muscle, fascia and tendon at shoulder and upper arm level, left arm, initial encounter (principal); X50.0XXA Overexertion from strenuous movement or load, initial encounter
CPT/HCPCS: 36415; 73030-TC-LT-FY; 80053; 83735; 84484; 85025; 93005; 93010; 99285-25

== ENCOUNTER 2024-07-16 15:33 | Emergency (ER) | payer OTHER ==
[2024-07-16 15:43] VITALS: BP 151/67; PULSE 90; RESP 18; TEMP 98; BMI 30.9
[2024-07-16] MEDS ORDERED: ACETAMINOPHEN 1000 MG/100 ML BAG IVPB ONE ×2 (17:02→17:26)
[2024-07-16] MEDS ORDERED: METOCLOPRAMIDE HCL INJECTION 10 MG/2 ML VIAL IVPB ONE (17:26)
[2024-07-16] MEDS ORDERED: ACETAMINOPHEN 500 MG TABLET (FP) ONE (18:14)
[2024-07-16] MEDS: ACETAMINOPHEN 500 MG TABLET (FP) PO ONE (18:16)
[2024-07-16 18:25] LABS: BASO % 0.4 % (0-2.0); EOS % 0.1 % (0-4.5); HEMATOCRIT 35.2 % (32.4-45.2); HEMOGLOBIN 11.4 GM/dL (10.7-15.3); LYMPH % 12.5 % (8-40); MCH 27.8 pg (25.7-33.7); MCHC 32.5 g/dl (32.0-36.0); MEAN CELL VOLUME 85.6 fl (80-96); MEAN PLT VOLUME 9.2 fl (7.5-11.1); MONO % 11.5 % (3.8-10.2); NEUT % 75.5 % (42.8-82.8); PLATELET COUNT 139 10^3/uL (134-434); RBC 4.11 M/mm3 (3.60-5.2); RDW 14.6 % (11.6-15.6); WHITE BLOOD COUNT 3.8 K/mm3 (4.0-10.0)
[2024-07-16 18:33] LABS: INR 1.44 (0.83-1.09); PROTHROMBIN TIME (PATIENT) 16.1 SEC (9.7-13.0)
[2024-07-16 18:44] LABS: POTASSIUM 3.8 mmol/L (3.5-5.1)
[2024-07-16 18:46] LABS: CALCIUM 8.6 mg/dL (8.5-10.1)
[2024-07-16 18:47] LABS: ALBUMIN 3.3 g/dl (3.4-5.0); BLOOD UREA NITROGEN 14.2 mg/dL (7-18)
[2024-07-16 18:50] LABS: CREATININE 0.7 mg/dL (0.55-1.3)
[2024-07-16 18:52] LABS: BILIRUBIN,TOTAL 0.3 mg/dL (0.2-1); TOT PROT 6.9 g/dl (6.4-8.2)
== END 2024-07-16 20:47 | disposition home or self-care (01) ==
LOC: JER 15:33
DX: R50.9 Fever, unspecified (principal); J10.1 Influenza due to other identified influenza virus with other respiratory manifestations; R05.9 Cough, unspecified; R53.1 Weakness; R07.9 Chest pain, unspecified; Z20.822 Contact with and (suspected) exposure to COVID-19
CPT/HCPCS: 0241U-QW; 36415; 71046-TC-FY; 80053; 84484; 85025; 85610; 85730; 93005; 93010; 99285-25